=== PATIENT | female | born 1945 | race Caucasian/White ===

== ENCOUNTER 2022-06-04 17:03 | Inpatient (IN) | payer MEDICARE, SELFPAY ==
--- OUTSIDE RECORDS SUMMARY | 2022-06-04 17:08 | XMS_ITS | Continuity of Care Document ---
[facility] Address [address] [place] [address]- Care Team Providers Care Convenience Store Clerk Name Role Phone Davie SWEET, Roscoe Ballard Primary Care Physician [id number] Date(s): 11/13/21 - 12/13/21 [facility] [address] [place] [address]- Attending Physician: Cassandra Mary Admitting Physician: AdmtrCassandra Referring Physician: Admtr, Ar8 Allergies, Adverse Reactions, Alerts Substance Reaction Severity Status predniSONE Active cortisone Hives Active Bee Stings Active penicillins Active Bactrim Rash Active Benadryl Active Immunizations Given and Recorded Vaccine Date Status Refusal Reason SARS-CoV-2 (COVID-19) mRNA-1273 vaccine 03/21/21 R ecorded SARS-CoV-2 (COVID-19) mRNA BNT-162b2 vac 04/29/20 Given SARS-CoV-2 (COVID-19) mRNA BNT-162b2 vac 04/08/20 Given tetanus/diphtheria/pertussis, acel(Tdap) 02/01/20 Given Medications amLODIPine 5 mg oral tablet 5 mg, 1, tablet, By Mouth, Daily, # 30 tablet, Refills 0, Tot. Refills 0, Maintenance, 11/07/21 11:44:00 EDT, Route to Pharmacy Electronically, [facility][id number], Partial fill upon patient request if the prescription is for a schedule II opio... Start Date: 11/07/21 Status: Ordered aspirin 81 mg oral delayed release tablet 81 mg, By Mouth, Daily, # 30 tablet, Refills 0, Tot. Refills 0, Maintenance, 11/07/21 11:42:00 EDT,Route to Pharmacy Electronically, [facility] #[id number], Partial fill upon patient request if the prescription is for a schedule II opioid drug.,... Start Date: 11/07/21 Status: Ordered atorvastatin 40 mg oral tablet 1 tablet = 40 mg, By Mouth, Daily, # 30 tablet, 0 Refills, Maintenance, 11/07/21 11:42:00 EDT, Tablet, [facility] #[id number], Partial fill upon patient request if the prescription is for a schedule II opioid drug., 175, nickie, 11/07/21 8:17:00 EDT,... Start Date: 11/07/21 Status: Ordered cholecalciferol 10,000 intl units oral capsule 1 capsule = 250 mcg, By Mouth, Daily, # 30 capsule, 0 Refills, Maintenance, 11/07/21 11:44:00 EDT, Capsule, [facility] #[id number], Partial fill upon patient request if the prescription is for a schedule II opioid drug., 175, cm, 11/07/21 8:17:00... Start Date: 11/07/21 Status: Ordered divalproex sodium 500 mg oral enteric coated tablet = 500 mg, By Mouth, 2 times a day, # 60 tablet, 0 Refills, Maintenance, 11/07/21 11:45:00 EDT, Tablet, [facility] #[id number], Partial fill upon patient request if the prescription is for a schedule II opioid drug., 175, cm, 11/07/21 8:17:00 EDT,... Start Date: 11/07/21 Status: Ordered Flonase 50 mcg/inh nasal spray 1 sprays = 50 mcg, Nares, Both, 2 times a day, # 9.9 mL, 0 Refills, Maintenance, 11/07/21 11:43:00 EDT, Nasal [place], [facility] #[id number], Partial fill upon patient request if the prescription is for a schedule II opioid drug., 1 sprays Nares, B... Start Date: 11/07/21 Status: Ordered metoprolol 25 mg oral tablet 12.5 mg, 0.5, tablet, By Mouth, 2 times a day, # 30 tablet, Refills 0, Tot. Refills 0, Maintenance,11/07/21 11:43:00 EDT, Route to Pharmacy Electronically, [facility] #[id number], Partial fill upon patient request if the prescription is for a nic... Start Date: 11/07/21 Status: Ordered multivitamin with minerals Antioxidant Multiple Vitamins and Minerals oral capsule See Instructions, By Mouth Daily, # 30 tablet, 0 Refills, Maintenance, 11/07/21 11:45:00 EDT, Capsule, [facility] #[id number], Partial fill upon patient request if the prescription is for a schedule II opioid drug., By Mouth Daily, 175, cm, ... Start Date: 11/07/21 Status: Ordered omeprazole 20 mg oral enteric coated capsule 1 capsule = 20 mg, By Mouth, Daily, # 30 capsule, 0 Refills, Maintenance, 11/07/21 11:45:00 EDT, ECCapsule, [facility] #[id number], Partial fill upon patient request if the prescription is for aschedule II opioid drug., 175, cm, 11/07/21 8:17:00... Start Date: 11/07/21 Status: Ordered RisperDAL Consta 12.5 mg/2 weeks intramuscular injection, extended release See Instructions, last and first dose o 11/03. every 2 weeks IM, # 1 each, 0 Refills, Maintenance, 11/07/21 11:46:00 EDT, [facility] #[id number], Partial fill upon patient request if the prescription is for a schedule II opioid drug., last and f... Start Date: 11/07/21 Status: Ordered risperiDONE 0.25 mg oral tablet 0.5 mg, 2, tablet, By Mouth, Daily at bedtime, # 60 tablet, Refills 0, Tot. Refills 0, Maintenance,11/07/21 11:46:00 EDT, Route to Pharmacy Electronically, [facility] #[id number], Partial fill upon patient request if the prescription is for a nic... Start Date: 11/07/21 Status: Ordered risperiDONE 0.25 mg oral tablet 0.5 mg, 2, tablet, By Mouth, 2 times a day, PRN, # 30 tablet, Refills 0, Tot. Refills 0, Maintenance, Agitation, 11/07/21 11:47:00 EDT, Route to Pharmacy Electronically, [facility] #[id number], Partial fill upon patient request if the prescription... Start Date: 11/07/21 Status: Ordered traZODone 50 mg oral tablet 25 mg, 0.5, tablet, By Mouth, Daily at bedtime, PRN, # 30 capsule, Refills 0, Tot. Refills 0, Maintenance, Insomnia, 11/07/21 11:47:00 EDT, Route to Pharmacy Electronically, [facility] #[id number], Partial fill upon patient request if the prescrip... Start Date: 11/07/21 Status: Ordered Problem List Condition Confirmation Course Effective Dates Status H ealth Status Informant Arthritis Confirmed Active Bipolar disorder Confirmed Active Stroke Confirmed Active Thalamic hemorrhage with stroke Confirmed Active CAD (coronary artery disease) Confirmed Active Diverticulitis Confirmed Active Dysphagia Confirmed Active Chronic GERD Confirmed Active Hiatal hernia with GERD Confirmed Active History of stroke Confirmed Active Hyperlipidemia Confirmed Active HTN (hypertension) Confirmed Active Hypertensive emergency Confirmed Active Psychiatric problem Confirmed Active Osteopenia Confirmed Active Colon polyp Confirmed Active Prolapsed uterus Confirmed Active Vertigo Confirmed Active Social History Social History Type Response Smoking Status Former smoker, quit more than 30 days ago entered on: 09/29/21 Sex Patient Care team information Personnel Name: Roscoe Broderick MD Address: Address: [address] [place] [address] Adult [facility] Pediatric Medicine [address]
--- OUTSIDE RECORDS SUMMARY | 2022-06-04 17:08 | XMS_ITS | Continuity of Care Document ---
Author Name Unknown Organization [facility] Address [address], [address] [place] [address]- Care Team Providers Care Furniture Finisher Helper Name Role Phone Davie SWEET, Roscoe Ballard Primary Care Physician [phone] Encounter [facility] Date(s): 03/10/22 - 04/09/22 [facility] [address] [place] [address]- Allergies, Adverse Reactions, Alerts Substance Reaction Severity Status predniSONE Active cortisone Hives Active Bee Stings Active penicillins Active Bactrim Rash Active Immunizations Given and Recorded Vaccine Date Status Refusal Reason SARS-CoV-2 (COVID-19) mRNA-1273 vaccine 03/21/21 R ecorded SARS-CoV-2 (COVID-19) mRNA BNT-162b2 vac 04/29/20 Given SARS-CoV-2 (COVID-19) mRNA BNT-162b2 vac 04/08/20 Given tetanus/diphtheria/pertussis, acel(Tdap) 02/01/20 Given Medications acetaminophen 325 mg oral capsule 2 capsule = 650 mg, By Mouth, Every 4 hours, PRN Pain , Moderate, # 90 capsule, 0 Refills, Maintenance, 03/12/22 15:29:00 EST, Capsule, [facility] #[id number], Partial fill upon patient request if the prescription is for a schedule II opioid drug.... Start Date: 03/12/22 Status: Ordered aspirin 81 mg oral delayed release tablet 81 mg, By Mouth, Daily, # 30 tablet, Refills 0, Tot. Refills 0, Maintenance, 11/07/21 11:42:00 EDT,Route to Pharmacy Electronically, [facility] #[id number], Partial fill upon patient request if the prescription is for a schedule II opioid drug.,... Start Date: 11/07/21 Status: Ordered atorvastatin 40 mg oral tablet 1 tablet = 40 mg, By Mouth, Daily, # 30 tablet, 0 Refills, Maintenance, 11/07/21 11:42:00 EDT, Tablet, [facility][id number], Partial fill upon patient request if the prescription is for a schedule II opioid drug., 175, cm, 11/07/21 8:17:00 EDT,... Start Date: 11/07/21 Status: Ordered cholecalciferol 10,000 intl units oral capsule 1 capsule = 250 mcg, By Mouth, Daily, # 30 capsule, 0 Refills, Maintenance, 11/07/21 11:44:00 EDT, Capsule, [facility] #[id number], Partial fill upon patient request if the prescription is for a schedule II opioid drug., 175, cm, 11/07/21 8:17:00... Start Date: 11/07/21 Status: Ordered Flonase 50 mcg/inh nasal spray 1 sprays = 50 mcg, Nares, Both, 2 times a day, # 9.9 mL, 0 Refills, Maintenance, 11/07/21 11:43:00 EDT, Nasal [place], [facility] #[id number], Partial fill upon patient request if the prescription is for a schedule II opioid drug., 1 sprays Nares, B... Start Date: 11/07/21 Status: Ordered ibuprofen 200 mg oral tablet 600 mg, 3, tablet, By Mouth, Every 6 hours, PRN, # 60 tablet, Refills 0, Tot. Refills 0, Maintenance, for pain, 03/12/22 15:30:00 EST, Route to Pharmacy Electronically, [facility][id number], Partial fill upon patient request if the prescription... Start Date: 03/12/22 Status: Ordered multivitamin with minerals Antioxidant Multiple Vitamins and Minerals oral capsule See Instructions, By Mouth Daily, # 30 tablet, 0 Refills, Maintenance, 11/07/21 11:45:00 EDT, Capsule, [facility] #[id number], Partial fill upon patient request if the prescription is for a schedule II opioid drug., By Mouth Daily, 175 cm, ... Start Date: 11/07/21 Status: Ordered omeprazole 20 mg oral enteric coated capsule 1 capsule = 20 mg, By Mouth, Daily, # 30 capsule, 0 Refills, Maintenance, 11/07/21 11:45:00 EDT, ECCapsule, [facility] #[id number], Partial fill upon patient request if the prescription is for aschedule II opioid drug., 175, cm, 11/07/21 8:17:00... Start Date: 11/07/21 Status: Ordered oxyCODONE 5 mg oral tablet 5 mg, 1, tablet, By Mouth, Every 6 hours, PRN, # 10 tablet, Refills 0, Tot. Refills 0, Maintenance,as needed for pain, 03/12/22 15:29:00 EST, Route to Pharmacy Electronically, [facility] #[id number], Partial fill upon patient request if the presc... Start Date: 03/12/22 Status: Ordered risperiDONE 0.25 mg oral tablet 0.5 mg, 2, tablet, By Mouth, Daily at bedtime, # 60 tablet, Refills 0, Tot. Refills 0, Maintenance,11/07/21 11:46:00 EDT, Route to Pharmacy Electronically, [facility] #[id number], Partial fill upon patient request if the prescription is for a nic... Start Date: 11/07/21 Status: Ordered risperiDONE 0.25 mg oral tablet 0.5 mg, 2, tablet, By Mouth, 2 times a day, PRN, # 30 tablet, Refills 0, Tot. Refills 0, Maintenance, Agitation, 11/07/21 11:47:00 EDT, Route to Pharmacy Electronically, [facility] #[id number], Partial fill upon patient request if the prescription... Start Date: 11/07/21 Status: Ordered Problem List [...] 30 days ago entered on: 09/29/21 Sex Implantable Device List Procedure Provider Procedure Date Device Type Site Robotic XI Sacrocolpopexy Laparoscopic a Mee Gabriel MD 03/12/22 Unknown Pelvis Device Identifier Serial Number Lot or Batch Number Manufacturing Date Expiration Date Distinct Identification Code MRI Safety Implantable Status Assigning Authority Unknown Unknown Unknown Unknown 01/10/24 Unknown Unknown Active Un known Patient Care team information Care Team Personnel Name: Evette Luis RN Position: [facility] RN Member Role: Primary Care Nurse Name: Reggie Ortiz MD Position: [facility] THERAPY ASSISTANT MD Member Role: Lifetime Consulting Physician Address: Address: [address] [place] [address] [place] [address]- Name: Jovita Guzman Position: [facility] RN Member Role: Primary Care Nurse Name: Delia Vázquez RN Position: [facility] RN Member Role: Primary Care Nurse Name: Kim Rosen RN Position: [facility] RN Member Role: Primary Care Nurse Name: Andria Zacarias Position: [facility] Outreach Member Role: Lifetime Consulting Physician Name: Afshan Hayes RN Position: [facility] RN Member Role: Primary Care Nurse Name: Roscoe Broderick MD Position: [facility] Primary Care Physician Member Role: PCP Address: Address: [address] [place] [address] [facility] [place] [address]- [place] Name: Lary Briones RN Position: [facility] RN Member Role: Primary Care Nurse Care Team Related Persons Name: DARLING VANESSA Address: home [address] [place] [id number] Name: LLOYD VANESSA Address: home [place]
--- OUTSIDE RECORDS SUMMARY | 2022-06-04 17:08 | XMS_ITS | Continuity of Care Document ---
Author Name Unknown Organization [facility] ter Address [address] [place] [id number] Care Team Providers Care Travel Manager Name Role Phone Reggie oMnk MD Primary Care Physician Encounter [facility] Date(s): 03/12/22 - 03/12/[address] [address]- Discharge Disposition: A-D/C Home Attending Physician: Mee Gabriel MD Admitting Physician: Mee Gabriel MD Referring Physician: Mee Gabriel MD Allergies, Adverse Reactions, Alerts Substance Reaction Severity Status predniSONE Active cortisone Hives Active penicillins Active Bactrim Rash Active Bee Stings Active Immunizations Given and Recorded Vaccine Date [...] 0 Refills, Maintenance, 03/12/22 15:29:00 EST, Capsule, [facility] #[id number], Partial fill upon patient request if the prescription is for a schedule II opioid drug.... Start Date: 03/12/22 Status: Ordered aspirin 81 mg oral delayed release tablet 81 mg, By Mouth, Daily, # 30 tablet, Refills 0, Tot. Refills 0, Maintenance, 11/07/21 11:42:00 EDT,Route to Pharmacy Electronically, [facility] #[id number], Partial fill upon patient request if the prescription is for a schedule II opioid drug.,... Start Date: 11/07/21 Status: Ordered atorvastatin 40 mg oral tablet 1 tablet = 40 mg, By Mouth, Daily, # 30 tablet, 0 Refills, Maintenance, 11/07/21 11:42:00 EDT, Tablet, [facility] #[id number], Partial fill upon patient request if the prescription is for a schedule II opioid drug., 175, cm, 11/07/21 8:17:00 EDT,... Start Date: 11/07/21 Status: Ordered cholecalciferol 10,000 intl units oral capsule 1 capsule = 250 mcg, By Mouth, Daily, # 30 capsule, 0 Refills, Maintenance, 11/07/21 11:44:00 EDT, Capsule, [facility] #[id number], Partial fill upon patient request if the prescription is for a schedule II opioid drug., 175, cm, 11/07/21 8:17:00... Start Date: 11/07/21 Status: Ordered Flonase 50 mcg/inh nasal spray 1 sprays = 50 mcg, Nares, Both, 2 times a day, # 9.9 mL, 0 Refills, Maintenance, 11/07/21 11:43:00 EDT, Nasal [place], [facility] #[id number], Partial fill upon patient request if the prescription is for a schedule II opioid drug., 1 sprays Nares, B... Start Date: 11/07/21 Status: Ordered ibuprofen 200 mg oral tablet 600 mg, 3, tablet, By Mouth, Every 6 hours, PRN, # 60 tablet, Refills 0, Tot. Refills 0, Maintenance, for pain, 03/12/22 15:30:00 EST, Route to Pharmacy Electronically, [facility] #[id number], Partial fill upon patient request if the prescription... Start Date: 03/12/22 Status: Ordered multivitamin with minerals Antioxidant Multiple Vitamins and Minerals oral capsule See Instructions, By Mouth Daily, # 30 tablet, 0 Refills, Maintenance, 11/07/21 11:45:00 EDT, Capsule, [facility] #[id number], Partial fill upon patient request if the prescription is for a schedule II opioid drug., By Mouth Daily, 175, cm, ... Start Date: 11/07/21 Status: Ordered omeprazole 20 mg oral enteric coated capsule 1 capsule = 20 mg, By Mouth, Daily, # 30 capsule, 0 Refills, Maintenance, 11/07/21 11:45:00 EDT, ECCapsule, [facility] #[id number], Partial fill upon patient request if the prescription is for aschedule II opioid drug., 175, cm, 11/07/21 8:17:00... Start Date: 11/07/21 Status: Ordered oxyCODONE 5 mg oral tablet 5 mg, 1, tablet, By Mouth, Every 6 hours, PRN, # 10 tablet, Refills 0, Tot. Refills 0, Maintenance,as needed for pain, 03/12/22 15:29:00 EST, Route to Pharmacy Electronically, [facility] #[id number], Partial fill upon patient request if the presc... Start Date: 03/12/22 Status: Ordered Oxycodone 5mg Oral Tablet (PACU ONLY) 5 mg, Tablet, By Mouth, Once, in PACU ONLY, PRN for Pain , Moderate, Routine, 03/12/22 14:30:00 EST Start Date: 03/12/22 Stop Date: 03/12/22 Status: Completed risperiDONE 0.25 mg oral tablet 0.5 mg, 2, tablet, By Mouth, Daily at bedtime, # 60 tablet, Refills 0, Tot. Refills 0, Maintenance,11/07/21 11:46:00 EDT, Route to Pharmacy Electronically, [facility] #[id number], Partial fill upon patient request if the prescription is for a nic... Start Date: 11/07/21 Status: Ordered risperiDONE 0.25 mg oral tablet 0.5 mg, 2, tablet, By Mouth, 2 times a day, PRN, # 30 tablet, Refills 0, Tot. Refills 0, Maintenance, Agitation, 11/07/21 11:47:00 EDT, Route to Pharmacy Electronically, [facility] #[id number], Partial fill upon patient request if the [...] Prolapsed uterus Confirmed Active Vertigo Confirmed Active Vital Signs Most recent to oldest [Reference Range]: 1 2 3 Height 162.5 cm (03/12/22 12:18 PM) 162.5 cm (03/06/22 2:52 PM) Weight 70.6 kg (03/12/22 12:18 PM) 69.5 kg (03/06/22 2:52 PM) Oxygen Saturation [94-100 %] 94 % (03/12/22 5:45 PM) 96 % (03/12/22 5:00 PM) 92 % *L* (03/12/22 4:45 PM) Pulse Rate [55-90 bpm] 78 bpm (03/12/22 5:45 PM) 78 bpm (03/12/22 12:18 PM) Body Mass Index [18.5-24.99 kg/m2] 26.74 kg/m2 *H* (03/12/22 12:18 PM) 26.32 kg/m2 *H* (03/06/22 2:52 PM) Blood Pressure [90-138/55-84 mm Hg] 148/76mm Hg *H* (03/12/22 5:45 PM) 145/73mm Hg *H* (03/12/22 5:00 PM) 147/72mm Hg *H* (03/12/22 4:45 PM) Respiratory Rate [16-30 br/min] 16 br/min (03/12/22 5:50 PM) 20 br/min (03/12/22 5:00 PM) 24 br/min (03/12/22 4:45 PM) Temperature [96.8-100.4 DegF] 97.6 DegF (03/12/22 5:45 PM) 97.2 DegF (03/12/22 4:45 PM) 97.3 DegF (03/12/22 3:30 PM) Liters per Minute 0 L/min (03/12/22 4:45 PM) 2 L/min (03/12/22 4:15 PM) 6 L/min (03/12/22 3:30 PM) Mode of Delivery (Oxygen) Room air (03/12/22 5:45 PM) Room air (03/12/22 4:45 PM) Room air (03/12/22 4:30 PM) Blood pressure sites Arm, right (03/12/22 5:45 PM) Arm, left (03/12/22 5:00 PM) Arm, left (03/12/22 3:30 PM) Temperature Route Temporal (03/12/22 5:45 PM) Temporal (03/12/22 3:30 PM) Temporal (03/12/22 12:18 PM) Dry Weight 69.5 kg (03/06/22 2:52 PM) Weight Obtained Via Standing scale (03/12/22 12:18 PM) Patient/family stated (03/06/22 2:52 PM) Dry Weight Obtained Via Patient/family s tated (03/06/22 2:52 PM) Social History Social History Type Response Smoking [...] Unknown 01/10/24 Unknown Unknown Active Un known History and physical note * Event Display: History and Physical Hospital Authored Date: Note * Jodi Aranda RN: PERFORM Event Display: Discharge/Transfer Note Hospital Authored Date: [id number] Nursing Discharge Note Entered On: 03/12/2022 19:11 EST Performed On: 03/12/2022 19:11 EST by Jodi Aranda RN Nursing Discharge Note 2 Discharge Time : 03/12/2022 19:01 EST Discharge Level of Care at Discharge : Home/Fdc/Foster Care Patient Left Unit Via : Wheelchair Patient Accompanied Off Unit with : Significant other DC Instructions Provided & Signed by Pt : Yes Patient Understands D/C Instructions : Yes Patient Instructions Discharge Signed : Yes Did Pt have Specialty Bed or Wound Vac : No Jodi Aranda RN - 03/12/2022 19:11 EST * Jodi Aranda RN: PERFORM, MODIFY Event Display: Patient Education/Instruction Authored Date: [id number] Inpatient Adult Discharge Instructions [address] [address] Name: JOVITA VANESSA : 1945 Visit: 03/12/2022 10:53:00 Current Date: 03/12/2022 17:44 Account: [id number] Inpatient Adult Discharge Instructions We would like to thank you for allowing us to assist you with your healthcare needs. The following includes patient education materials and information regarding your injury/illness. Our entire staffstrives to provide an excellent experience for our patients and their families. PLEASE ENSURE YOU FOLLOW-UP PER THE INSTRUCTIONS BELOW! ?? YOUR OPINION IS IMPORTANT TO US! Please complete the survey you may receive by mail or email. Your feedback will be used to make improvements to the healthcare experiences of our patients and their families. Surveys are administered by [employer] ?? If further treatment with your primary care physician or another doctor is recommended, it is important for you to keep the appointment. Call your primary care physician or return to the Emergency Department immediately if your condition worsens, fails to improve, or new symptoms develop. If you need to find a doctor, you can call [facility] [employer] for a referral at [phone] or toll free at [phone]) or log in to [email or web address].. ?? You can view and manage your care through the patient portal or by using a health care leobardo of your choosing. [facility] is a website that allows you to securely view your medical information including your hospital discharge summary, office visit summaries, medications and follow-up visits. You can also request appointments, renew medications, and request access to your medical information using a health care leobardo of your choosing, or just ask a question. You can enroll at [email or web address] or register during your next office visit. You have been discharged from [facility], Patient Care Unit: [facility]. If you have any questions regarding these instructions after you leave, please call us and we will be happy to assist you. [facility] Your Care Team Attending Physician Mee Gabriel MD Discharging Providers Janeen Jones MD Reason for Admission PELVIC ORGAN PROLAPSE Tests Performed Below is a partial list of the tests performed during your hospitalization. You may have had other tests and procedures not included in this list. Please discuss all test results with your provider. Primary Care Provider Reggie Monk MD Advance Directive Health Care Proxy on File Yes - Health Care Proxy No qualifying data available. Discharge Vitals Temperature: 97.2 DegF Height: 162.5 cm Pulse Rate: 78 bpm Weight: 70.6 kg Respiratory Rate: 20 br/min Body Mass Index:??26.74 kg/m2??High Systolic Blood Pressure:??145 mm Hg??High Body surface area: 1.79 Diastolic Blood Pressure: 73 mm Hg ?? Oxygen Saturation: 96 % ?? Studies Pending All tests and labs ordered during this hospital stay have been completed unless listed below. Please discuss all pending results with your provider listed above in these instructions. ?? No incomplete studies found What to do next Instructions From Your Doctor Discharge Orders Instructions from your Care Team You may shower in??48 hours. Remove Band-Aids at this time but do not remove steri-strips (let them fall off/peel away on their own). Do not drive or drink alcohol while taking any narcotic pain medications. No strenuous/straining activities such as heavy lifting, twisting, bending, etc. You may resume a regular diet. Call Dr. Caban's office to schedule a follow-up appointment or if you experience any issues such as: excessive swelling, bleeding, saturating 1 pad in 1 hour, redness of incision sites, fever over 100, chills,??vomiting episodes. Do not soak in water (tub baths/ hot tubs). You Need to Schedule the Following Appointments Follow Up with??Mee Gabriel MD When?? Where: ?? Discharge Medications JOVITA VANESSA :1945 Visit Date:03/12/2022 Medications: Please continue your medications until treatment is completed or stopped by your provider. Medications not listed below should be discontinued. Discuss any questions related to medications with your provider. What How Much When Instructions Next Dose New Acetaminophen (acetaminophen 325 mg oral capsule) 2 capsule Oral Every 4 hours as needed for Pain , Moderate Pickup at [facility] #[id number] 10pm Last given at 6pm New Ibuprofen (ibuprofen 200 mg oral tablet) 3 tab(s) Oral Every 6 hours as needed for for pain Pickup at [facility] #[id number] As needed (not given) New Oxycodone (oxyCODONE 5 mg oral tablet) 1 tab(s) Oral Every 6 hours as needed for as needed for pain Pickup at [facility] #[id number] 12 midnight Last given at 6pm Unchanged Aspirin (aspirin 81 mg oral delayed release tablet) 81 Milligram Oral Daily Unchanged Atorvastatin (atorvastatin 40 mg oral tablet) 1 tab(s) Oral Daily Unchanged Cholecalciferol (cholecalciferol 10,000 intl units oral capsule) 1 capsule Oral Daily Unchanged Fluticasone Nasal (Flonase 50 mcg/ inh nasal spray) 1 spray(s) Nares, Both Twice a day Unchanged Multivitamin With Minerals (multivitamin with minerals Antioxidant Multiple Vitamins and Minerals oral capsule) See instructions By Mouth Daily ?? Unchanged Omeprazole (omeprazole 20 mg oral enteric coated capsule) 1 capsule Oral Daily Unchanged Risperidone (risperiDONE 0.25 mg oral tablet) 2 tab(s) Oral Twice a day as needed for Agitation Unchanged Risperidone (risperiDONE 0.25 mg oral tablet) 2 tab(s) Oral Daily at Bedtime Pharmacy Information [facility] #[id number]: [address], [place] [phone] Test Results Below is a partial list of the most recent Laboratory test results done prior to this discharge. You may have had other tests and procedures not included in this list. Please discuss all test resultswith your provider. Allergies (NKA means No Known Allergies) Bactrim??(Rash) Bee Stings cortisone??(Hives) penicillins predniSONE Problems Active Problems??(18) Arthritis?? Bipolar disorder?? CAD (coronary artery disease)?? Chronic GERD?? Colon polyp?? Diverticulitis?? Dysphagia?? Hiatal hernia with GERD?? History of stroke?? HTN (hypertension)?? Hyperlipidemia?? Hypertensive emergency?? Osteopenia?? Prolapsed uterus?? Psychiatric problem?? Stroke?? Thalamic hemorrhage with stroke?? Vertigo?? Education Materials Below is the list of Educational Leaflet Providered with your Discharge Instructions. Surgery Medical Daystay Surgical Overnight Discharge Instructions?? Understanding Robotic-Assisted Sacrocolpopexy (RASC)?? Having Robotic-Assisted Sacrocolpopexy (RASC)?? Valuables and Belongings I fully understand and agree that [facility] accepts no responsibility for all my personal property including clothing, toilet articles, radios, jewelry, dentures, hearing aids, rings, money, or any other property that is in my possession or is brought to me after admission. I understand certain valuables may be placed in a hospital safe for a short period of time. I understand that the hospital is not liable for loss or damage due to accident, fire, or other natural occurrence while said property is in the safe. I accept full responsibility for any personal property that I keep with me, and will not hold the hospital responsible in case of loss or disappearance. I acknowledge that i have been encouraged to send valuables and belongings home. ?? Review of Valuable and Belonging List: With patient Disposition of Belongings: Other: PACU Date for Pt to Sign Valuables/Belongings: 03/12/22 12:18:00 ?? Valuables & Belongings ?? Clothes Electronic devices Jewelry Monetary Items Personal devices Miscellaneous Medications (Valuables) Valuables at Bedside Jacket, Pants, Shirt, Shoes, Undergarments ? Glasses ? Valuables Sent Home ? Valuables Sent to Security ? Other Discharge Information ? Pulmonary Rehab Status?? Pulmonary Rehab Discharge Status?? Respiratory Rate: 20 br/min ? Common Emergency Awareness Tips IS IT A STROKE? Act FAST and Check for these signs: FACE Does the face look uneven? ARM Does one arm drift down? SPEECH Does their speech sound strange? TIME Call at any sign of stroke ?? Heart Attack Signs Chest discomfort: Most heart attacks involve discomfort in the center of the chest and lasts more than a few minutes, or goes away and comes back. It can feel like uncomfortable pressure, squeezing, fullness or pain. Discomfort in upper body: Symptoms can include pain or discomfort in one or both arms, back, neck, jaw or stomach. Shortness of breath: With or without discomfort. Other signs: Breaking out in a cold sweat, nausea, or lightheaded. Remember, MINUTES DO MATTER. If you experience any of these heart attack warning signs, call to get immediate medical attention! ?? Smoking can increase your chances of developing chronic health problems and can cause harmful effects to other family members in your house. If you smoke, you are strongly encouraged to quit. Please call [facility] [employer] at [phone] or [phone]) or log in to [email or web address] for referrals to smoking cessation programs. ?? The National Suicide Prevention Hotline is available 14/09 if you or someone you know needs to find a reason to keep living. By calling 6-258-717Aquacue (1324) you'll be connected to a skilled, trained counselor at a crisis center in your area. INPATIENT DISCHARGE INSTRUCTIONS SIGNATURE PAGE RASHEEDAOLGA LIDIAJOVITA Location:[facility] Registration Date and Time:03/12/2022 10:53 EST Primary Care Physician: Lacho SWEET, Reggie Torres, I JOVITA VANESSA, have received the above patient education materials/instructions and have verbalized understanding. If ambulance or transport services are being used I further acknowledge being given a choice of service. ?? If you need to contact me, please call me at this number: . Patient/Speech Instructor Name: Patient/Speech Instructor Signature: Relationship to Patient: Witness Name/Signature: Date: * Jodi Aranda RN: PERFORM Event Display: Patient Education Leaflets Authored Date: [id number] Surgery Medical Daystay Surgical Overnight Discharge Instructions ?? 295 Medical Daystay/Surgical Overnight Discharge Instructions ? Since your coordination and judgment may be altered by medication and/or anesthesia, a responsible adult must drive you home from the hospital. ? If you have received medication for pain or sedation while under our care, you should not drive, operate machinery, drink alcohol, or sign any legal documents for 24 hours.?? You should have someone with you at home tonight. ? Remain at home the day of discharge.?? You may be up and about unless otherwise instructed by your physician. ? You may resume your daily prescription medication schedule.?? Any depressant medication should be avoided for 24 hours unless otherwise instructed by your surgeon or anesthesiologist. ? Call your physician for a follow-up appointment.? If you experience unusual or severe pain not relied by your pain medication, excessive bleedingor drainage, persistent nausea and vomiting, excessive swelling or redness, foul odor from incisionsite or fever over 100.6F, you need to call your physician. ? A follow-up phone call by a nurse will be made the day after your procedure.?? If you have stayed with us over night, you will not be receiving a follow-up phone call. ? Nausea and vomiting are a common side effect of prescription pain medication.?? We recommend that pills are not taken on an empty stomach.?? While taking any prescription pain medication you should not drive or drink alcohol. ? * Jodi Aranda RN: PERFORM Event Display: Patient Education Leaflets Authored Date: [id number] Understanding Robotic-Assisted Sacrocolpopexy (RASC) ?? [address] Understanding Robotic-Assisted Sacrocolpopexy (RASC) Robotic-assisted sacrocolpopexy is a type of surgery. It???s done to repair pelvic organ prolapse. The surgery is done with special tools and a robotic controller. What is pelvic organ prolapse? Your pelvis is made up of the bones in the lower part of your belly (abdomen). The uterus, bladder,and lower part of your intestines are just above the pelvic bones. Strong tissues help hold these organs in place. If the tissues weaken, one or more of these organs may drop down and press against or bulge into the vagina. This is called pelvic organ prolapse. ?? Why robotic-assisted sacrocolpopexy is done You may need this surgery to relieve symptoms of pelvic organ prolapse, such as: ??? Fullness or pressure in your vagina ??? A bulge of tissue from your vagina ??? Ongoing vaginal discharge or bleeding ??? Trouble urinating ??? Leaking urine with coughing, sneezing, or laughing (stress incontinence) ??? Sudden urges to urinate ??? Trouble having bowel movements ??? Painful sex Robotic-assisted sacrocolpopexy has some benefits over other types of surgery, such as: ??? Fewer complications ??? A shorter hospital stay ??? A quicker recovery But it may: ??? Take longer than other surgeries ??? Not be available where you live ??? Cost more ?? How robotic-assisted sacrocolpopexy is done The surgery may be done by a gynecologic surgeon. This is a healthcare provider who specializes in female health. Or it may be done by a surgeon who specializes in the urinary system. The surgery canbe done in several ways. The surgeon will make a few small cuts (incisions) in the abdomen. The surgeon will pass tools through the small incisions. These include a tiny camera with a light and [employer] robotic tools.??If you are going to have a hysterectomy, the surgeon will remove your uterus. Thesurgeon will lift up the prolapsed part of your vagina. They will sew a tissue graft or synthetic mesh to the vagina. This helps keep the vagina and other organs in place. The graft or mesh is then stitched (sutured) to strong tissue in the pelvic area. The surgeon may also repair other prolapsed pelvic organs. These may include your rectum or bladder. The FDA has issued a warning about the use of surgical mesh in this type of surgery. Ask your surgeon if they will use mesh and what the risks of using it are. ?? Risks of robotic-assisted sacrocolpopexy Every surgery has risks. The risks of this surgery include: ??? Infection ??? Bleeding ??? Blood clots that can travel to the lungs (pulmonary embolism) ??? Injury to nearby organs such as the intestines, bladder, or ureter ??? Problems with cuts (incisions) healing ??? Painful sex ??? Problems with the mesh used to hold organs in place ??? Reaction to medic vipul used during surgery (anesthesia) ??? Organs or tissue not staying in place and a return of symptoms ??? Need for more surgery Your risks may vary depending on your age and overall health. They also depend on the location and severity of the prolapse. Talk with your healthcare provider about which risks apply most to you. ?? Last Reviewed Date: 2022 ?? [employer] All rights reserved. This information is not intended as a substitute for professional medical care. Always follow your healthcare professional's instructions. ?? * Jodi Aranda RN: PERFORM Event Display: Patient Education Leaflets Authored Date: [id number] Having Robotic-Assisted Sacrocolpopexy (RASC) ?? [address] Having Robotic-Assisted Sacrocolpopexy (RASC) Robotic-assisted sacrocolpopexy is a type of surgery to repair pelvic organ prolapse. The surgery is done with special tools and a robotic controller. What to tell your healthcare provider Tell your healthcare provider about all the medicines you take. This includes qhts-mct-yjjyodl medicines such as ibuprofen. It also includes vitamins, herbs, and other supplements. And tell your healthcare provider if you: ??? Have had any recent changes in your health, such as an infection or fever ??? Are sensitive or allergic to any medicines, latex, tape, or anesthesia (local and general) ???Are or think you may be ??? Plan to get after having this surgery ?? Tests before your surgery Before your surgery, a healthcare provider will ask you questions about your health. They will alsoexamine you. This includes a pelvic exam. Your heart and lungs will also be checked. You may need tests such as: ??? Electrocardiogram (ECG) to check your heart rhythm ??? Blood tests to check your overall health ??? Urine test to check for infection ??? Bladder tests to check how well you empty your bladder ?? Getting ready for your surgery Talk with your healthcare provider about how to get ready for your surgery. You may need to stop taking some medicines before the procedure, such as blood thinners and aspirin. If you smoke, you may need to stop before your surgery. Smoking can delay healing. Talk with your healthcare provider if you need help to stop smoking. Also make sure to do the following: ??? Ask a family member or friend to take you home from the hospital. ??? Follow any directions youare given for not eating or drinking before surgery. ??? Follow all other instructions from your healthcare provider. You will be asked to sign a consent form that gives your permission to do the procedure. Read the form carefully. Ask questions if something is not clear. ?? On the day of your surgery Your healthcare provider will explain the details of your surgery. Your surgery may be done by a gynecologic surgeon. This is a provider who specializes in female health. Or your surgery may be done by a urologist. This is a surgeon who specializes in the urinary system. They will work with a team of specialized nurses. The surgery can be done in several ways. Ask your provider about the details of your surgery. The whole procedure may take a couple of hours. In general, you can expect the following:? You will have general anesthesia, a medicine that allows you to sleep through the surgery. You won???t feel any pain during the surgery. ??? A healthcare provider will watch yourvital signs, like your heart rate and blood pressure, during the surgery. ??? You may be given antibiotics during and after the surgery. This is to help prevent infection. ??? After cleaning your skin, the surgeon will make a few small cuts (incisions) in your abdomen. ??? A small tube may be used to send some gas into your abdomen. This helps the surgeon see the area better during surgery. ??? The surgeon will pass tools through the small incisions. These include a tiny camera with a light, and several robotic tools. The robotic tools allow your surgeon to make very small movements. ??? If you are going to have a hysterectomy, the surgeon will remove your uterus. ??? The surgeon will lift up the prolapsed part of your vagina. ??? The surgeon will sew a tissue graft or synthetic mesh under the pelvic organs. This helps keep them in place. The graft or mesh is stitched (sutured) to strong tissue in the pelvic area. Ask your surgeon if they plan to use mesh and what the risk are. ??? The surgeon may also repair other prolapsed pelvic organs. These may include your rectum or bladder. ??? When the surgery is done, the surgeon will remove the tools. The incisions will be closed and band aged. ?? After your surgery After the surgery, a healthcare provider will watch your vital signs. They will also check your incisions. You may be able to go home the same day. Or you may need to stay overnight. ?? Recovering at home Make sure you move around as much as possible after your surgery. This helps to prevent problems like blood clots. You may have some pain after the surgery. This includes pain in your shoulder from the gas used during surgery. Your healthcare provider will tell you what to take for pain. It's very important to not strain after this surgery. You may need to use stool softeners after surgery to prevent constipation. ?? Follow-up care Make sure you follow all of your healthcare provider???s instructions. Don???t miss any of your follow-up appointments. Your symptoms may go away fully after surgery. Talk with your healthcare provider if your symptoms don???t go away, or if they return. Tell your provider if you get afterhaving this surgery. ?? When to call your healthcare provider Call your healthcare provider right away if you have any of these: ??? Fever of 100.4??F (38??C) orhigher, or as directed by your healthcare provider ??? Pain that is getting worse ??? Redness or warmth near the incisions ??? Vaginal bleeding ??? Lots of fluid leaking from your incisions ??? Nausea and vomiting ??? Chest pain or shortness of breath starts suddenly ?? Last Reviewed Date: 2022 ?? 3691-2420 [employer]. All rights reserved. This information is not intended as a substitute for professional medical care. Always follow your healthcare professional's instructions. ?? Patient Care team information Care Team Personnel Name: Evette Luis RN Position: [facility] RN Member Role: Primary Care Nurse Name: Reggie Ortiz MD Position: [facility] POTTER OR CERAMIC ARTIST MD Member Role: Lifetime Consulting Physician Address: Address: [address] [place] [address] [facility] [address] Name: Jovita Guzman Position: [facility] RN Member Role: Primary Care Nurse Name: Delia Vázquez RN Position: [facility] RN Member Role: Primary Care Nurse Name: Kim Rosen RN Position: [facility] RN Member Role: Primary Care Nurse Name: Andria Zacarias Position: [facility] Outreach Member Role: Lifetime Consulting Physician Name: Afshan Hayes RN Position: [facility] RN Member Role: Primary Care Nurse Name: Lary Briones RN Position: S RN Member Role: Primary Care Nurse Name: Reggie Monk MD Position: [facility] Physician (General Medicine) Member Role: PCP Address: Address: [address] [place] [address] [place] [address]- Care Team Related Persons Name: DARLING VANESSA Address: home [address] [place] [id number] Name: LLOYD VANESSA Address: [place] [address]
--- OUTSIDE RECORDS SUMMARY | 2022-06-04 17:08 | XMS_ITS | Continuity of Care Document ---
Author Name Unknown Organization [facility] Address [address], [address] [place] [address]- Care Team Providers Care Rn Paralegal Name Role Phone Roscoe Broderick MD Primary Care Physician Encounter [facility] [place] [place] Date(s): 12/05/21 - [facility]04/[facility] [address] [place] [address]- Allergies, Adverse Reactions, Alerts Substance Reaction Severity Status predniSONE Active cortisone Hives Active penicillins Active Bactrim Rash Active Benadryl Active Bee Stings Active Immunizations Given and [...] 11/07/21 11:44:00 EDT, Route to Pharmacy Electronically, [facility] #[id number], Partial fill upon patient request if the prescription is for a schedule II opio... Start Date: 11/07/21 Status: Ordered aspirin 81 mg oral delayed release tablet 81 mg, By Mouth, Daily, # 30 tablet, Refills 0, Tot. Refills 0, Maintenance, 11/07/21 11:42:00 EDT,Route to Pharmacy Electronically, [facility] #[id number], Partial fill upon patient request if the prescription is for a schedule II opioid drug.,... Start Date: 11/07/21 Status: Ordered atorvastatin 40 mg oral tablet 1 tablet = 40 mg, By Mouth, Daily, # 30 tablet, 0 Refills, Maintenance, 11/07/21 11:42:00 EDT, Tablet, [facility][id number], Partial fill upon patient request if the prescription is for a schedule II opioid drug., nickie Salguero, 11/07/21 8:17:00 EDT,... Start Date: 11/07/21 Status: Ordered cholecalciferol 10,000 intl units oral capsule 1 capsule = 250 mcg, By Mouth, Daily, # 30 capsule, 0 Refills, Maintenance, 11/07/21 11:44:00 EDT, Capsule, [facility] #[id number], Partial fill upon patient request if the prescription is for a schedule II opioid drug., nickie Salguero, 11/07/21 8:17:00... Start Date: 11/07/21 Status: Ordered divalproex sodium 500 mg oral enteric coated tablet = 500 mg, By Mouth, 2 times a day, # 60 tablet, 0 Refills, Maintenance, 11/07/21 11:45:00 EDT, Tablet, [facility] #[id number], Partial fill upon patient request if the prescription is for a schedule II opioid drug., nickie Salguero, 11/07/21 8:17:00 EDT,... Start Date: 11/07/21 Status: Ordered Flonase 50 mcg/inh nasal spray 1 sprays = 50 mcg, Nares, Both, 2 times a day, # 9.9 mL, 0 Refills, Maintenance, 11/07/21 11:43:00 EDT, Nasal [place], [facility] #[id number], Partial fill upon patient request if the prescription is for a schedule II opioid drug., 1 sprays Nares, B... Start Date: 11/07/21 Status: Ordered metoprolol 25 mg oral tablet 12.5 mg, 0.5, tablet, By Mouth, 2 times a day, # 30 tablet, Refills 0, Tot. Refills 0, Maintenance,11/07/21 11:43:00 EDT, Route to Pharmacy Electronically, [facility] #[id number], Partial fill upon patient request if the prescription is for a nic... Start Date: 11/07/21 Status: Ordered multivitamin with minerals Antioxidant Multiple Vitamins and Minerals oral capsule See Instructions, By Mouth Daily, # 30 tablet, 0 Refills, Maintenance, 11/07/21 11:45:00 EDT, Capsule, [facility][id number], Partial fill upon patient request if the prescription is for a schedule II opioid drug., By Mouth Daily, 175, cm, ... Start Date: 11/07/21 Status: Ordered omeprazole 20 mg oral enteric coated capsule 1 capsule = 20 mg, By Mouth, Daily, # 30 capsule, 0 Refills, Maintenance, 11/07/21 11:45:00 EDT, ECCapsule, [facility][id number], Partial fill upon patient request if the prescription is for aschedule II opioid drug., 175, cm, 11/07/21 8:17:00... Start Date: 11/07/21 Status: Ordered RisperDAL Consta 12.5 mg/2 weeks intramuscular injection, extended release See Instructions, last and first dose o 11/03. every 2 weeks IM, # 1 each, 0 Refills, Maintenance, 11/07/21 11:46:00 EDT, [facility] #[id number], Partial fill upon patient request if the prescription is for a schedule II opioid drug., last and f... Start Date: 11/07/21 Status: Ordered risperiDONE 0.25 mg oral tablet 0.5 mg, 2, tablet, By Mouth, Daily at bedtime, # 60 tablet, Refills 0, Tot. Refills 0, Maintenance,11/07/21 11:46:00 EDT, Route to Pharmacy Electronically, [facility] #[id number], Partial fill upon patient request if the prescription is for a nic... Start Date: 11/07/21 Status: Ordered risperiDONE 0.25 mg oral tablet 0.5 mg, 2, tablet, By Mouth, 2 times a day, PRN, # 30 tablet, Refills 0, Tot. Refills 0, Maintenance, Agitation, 11/07/21 11:47:00 EDT, Route to Pharmacy Electronically, [facility] #[id number], Partial fill upon patient request if the prescription... Start Date: 11/07/21 Status: Ordered traZODone 50 mg oral tablet 25 mg, 0.5, tablet, By Mouth, Daily at bedtime, PRN, # 30 capsule, Refills 0, Tot. Refills 0, Maintenance, Insomnia, 11/07/21 11:47:00 EDT, Route to Pharmacy Electronically, [facility] #[id number], Partial fill upon patient request if the [...] on: 09/29/21 Sex Patient Care team information Care Team Personnel Name: Evette Luis RN Position: [facility] RN Member Role: Primary Care Nurse Name: Reggie Ortiz MD Position: [facility] INVESTMENT SALES ASSISTANT MD Member Role: Lifetime Consulting Physician Address: Address: [address] [place] [address] Name: Татьяна Guzman Position: [facility] RN Member Role: Primary Care Nurse Name: Delia Vázquez RN Position: [facility] RN Member Role: Primary Care Nurse Name: Kim Rosen RN Position: [facility] RN Member Role: Primary Care Nurse Name: nAdria Zacarias Position: S Outreach Member Role: Lifetime Consulting Physician Name: Afshan Hayes RN Position: [facility] RN Member Role: Primary Care Nurse Name: Roscoe Broderick MD Position: [facility] Primary Care Physician Member Role: PCP Address: Address: [address] [place] [address] [facility] [place], [place] [address] Name: Lary Briones RN Position: [facility] RN Member Role: Primary Care Nurse Care Team Related Persons Name: DARLING VANESSA Address: home [address] [place] [id number] Name: LLOYD VANESSA Address: [place] [address]
--- OUTSIDE RECORDS SUMMARY | 2022-06-04 17:08 | XMS_ITS | Continuity of Care Document ---
Author Name Unknown Organization [facility] Address [address] [place] [address]- Care Team Providers Care Cash Posting Clerk Name Role Phone Roscoe Broderick MD Primary Care Physician [phone] [id number] Date[facility]s): [facility]01/22 - 04/26/22 [facility] [address] [place] [address]- Attending Physician: Mee Gabriel MD Admitting Physician: Mee Gabriel MD Referring Physician: Roscoe Broderick MD Allergies, Adverse Reactions, Alerts Substance Reaction [...] 0 Refills, Maintenance, 03/12/22 15:29:00 EST, Capsule, [facility][id number], Partial fill upon patient request if the prescription is for a schedule II opioid drug.... Start Date: 03/12/22 Status: Ordered aspirin 81 mg oral delayed release tablet 81 mg, By Mouth, Daily, # 30 tablet, Refills 0, Tot. Refills 0, Maintenance, 11/07/21 11:42:00 EDT,Route to Pharmacy Electronically, [facility][id number], Partial fill upon patient request if the prescription is for a schedule II opioid drug.,... Start Date: 11/07/21 Status: Ordered atorvastatin 40 mg oral tablet 1 tablet = 40 mg, By Mouth, Daily, # 30 tablet, 0 Refills, Maintenance, 11/07/21 11:42:00 EDT, Tablet, [facility] #[id number], Partial fill upon patient request if the prescription is for a schedule II opioid drug., 175, cm, 11/07/21 8:17:00 EDT,... Start Date: 11/07/21 Status: Ordered cholecalciferol 10,000 intl units oral capsule 1 capsule = 250 mcg, By Mouth, Daily, # 30 capsule, 0 Refills, Maintenance, 11/07/21 11:44:00 EDT, Capsule, [facility] #[id number], Partial fill upon patient request if the prescription is for a schedule II opioid drug., 175, cm, 11/07/21 8:17:00... Start Date: 11/07/21 Status: Ordered Flonase 50 mcg/inh nasal spray 1 sprays = 50 mcg, Nares, Both, 2 times a day, # 9.9 mL, 0 Refills, Maintenance, 11/07/21 11:43:00 EDT, Nasal [place], [facility] #[id number], Partial fill upon patient request if the prescription is for a schedule II opioid drug., 1 sprays Nares, B... Start Date: 11/07/21 Status: Ordered ibuprofen 200 mg oral tablet 600 mg, 3, tablet, By Mouth, Every 6 hours, PRN, # 60 tablet, Refills 0, Tot. Refills 0, Maintenance, for pain, 03/12/22 15:30:00 EST, Route to Pharmacy Electronically, [facility][id number], Partial fill upon patient request if the prescription... Start Date: 03/12/22 Status: Ordered multivitamin with minerals Antioxidant Multiple Vitamins and Minerals oral capsule See Instructions, By Mouth Daily, # 30 tablet, 0 Refills, Maintenance, 11/07/21 11:45:00 EDT, Capsule, [facility] #[id number], Partial fill upon patient request if the prescription is for a schedule II opioid drug., By Mouth Daily, 175, cm, ... Start Date: 11/07/21 Status: Ordered omeprazole 20 mg oral enteric coated capsule 1 capsule = 20 mg, By Mouth, Daily, # 30 capsule, 0 Refills, Maintenance, 11/07/21 11:45:00 EDT, [facility]apsule, [id number], Partial fill upon patient request if the prescription is for aschedule II opioid drug., 175, cm, 11/07/21 8:17:00... Start Date: 11/07/21 Status: Ordered oxyCODONE 5 mg oral tablet 5 mg, 1, tablet, By Mouth, Every 6 hours, PRN, # 10 tablet, Refills 0, Tot. Refills 0, Maintenance,as needed for pain, 03/12/22 15:29:00 EST, Route to Pharmacy Electronically, [facility] #[id number], Partial fill upon patient request if the presc... Start Date: 03/12/22 Status: Ordered risperiDONE 0.25 mg oral tablet 0.5 mg, 2, tablet, By Mouth, Daily at bedtime, # 60 tablet, Refills 0, Tot. Refills 0, Maintenance,11/07/21 11:46:00 EDT, Route to Pharmacy Electronically, [facility] #[id number], Partial fill upon patient request if the prescription is for a nic... Start Date: 11/07/21 Status: Ordered risperiDONE 0.25 mg oral tablet 0.5 mg, 2, tablet, By Mouth, 2 times a day, PRN, # 30 tablet, Refills 0, Tot. Refills 0, Maintenance, Agitation, 11/07/21 11:47:00 EDT, Route to Pharmacy Electronically, [facility] #[id number], Partial fill upon patient request if the [...] Device Type Site Robotic XI Sacrocolpopexy Laparoscopic Mee Akers MD 03/12/22 Unknown Pelvis Device Identifier Serial Number Lot or Batch Number Manufacturing Date Expiration Date Distinct Identification Code MRI Safety Implantable Status Assigning Authority Unknown Unknown Unknown Unknown 01/10/24 Unknown Unknown Active Un known Patient Care team information Care Team Personnel Name: Evette Luis RN Position: [facility] RN Member Role: Primary Care Nurse Name: Reggie Ortiz MD Position: [facility] CARRIER WASHER MD Member Role: Lifetime Consulting Physician Address: Address: [address] [place] [address] [place] [address]- Name: Татьяна Guzman Position: [facility] RN Member Role: Primary Care Nurse Name: Delia Vázquez RN Position: [facility] RN Member Role: Primary Care Nurse Name: Kim Rosen RN Position: [facility] RN Member Role: Primary Care Nurse Name: Andria Zacarias Position: [facility] Outreach Member Role: Lifetime Consulting Physician Name: Afshan Hayes RN Position: [facility] RN Member Role: Primary Care Nurse Name: Roscoe Broderick MD Position: [facility] Primary Care Physician Member Role: PCP Address: Address: [address] [place] [address] Adult [facility] [place] [address]- Name: Lary Briones RN Position: [facility] RN Member Role: Primary Care Nurse Care Team Related Persons Name: DARLING VANESSA Address: home [address] [place] [address] [address] [place] [address] Name: LLOYD VANESSA Address: [place] [address]
--- OUTSIDE RECORDS SUMMARY | 2022-06-04 17:08 | XMS_ITS | Continuity of Care Document ---
Author Name Unknown Organization [facility] ter Address [address] [place] [id number] Care Team Providers Care Residential Support Specialist Name Role Phone Davie SWEET, Roscoe Ballard Primary Care Physician Encounter [facility] Date(s): 09/29/21 - 10/02/[address] [address]- Encounter Diagnosis Altered mental status(Final) - 09/29/21 Discharge Disposition: A-D/C Home Attending Physician: Magaly SWEET, Lee Turner Admitting Physician: Miguel Angel Boss MD Referring Physician: Not on Staff, Referring MD Allergies, Adverse Reactions, Alerts Substance Reaction Severity Status predniSONE Active cortisone Hives Active Bee Stings Active Benadryl Active penicillins Active Bactrim Rash Active Immunizations Given and Recorded Vaccine Date Status Refusal Reason SARS-CoV-2 (COVID-19) mRNA-1273 vaccine 03/21/21 R ecorded SARS-CoV-2 (COVID-19) mRNA BNT-162b2 vac 04/29/20 Given SARS-CoV-2 (COVID-19) mRNA BNT-162b2 vac 04/08/20 Given tetanus/diphtheria/pertussis, acel(Tdap) 02/01/20 Given Medications Acetaminophen Tablet 650 mg, Tablet, By Mouth, Every 4 hours, PRN for Pain , Mild, Temperature Greater than 100.5, Routine, 09/29/21 15:46:00 EDT Start Date: 09/29/21 Stop Date: 10/03/21 Status: Discontinued amLODIPine 5 mg oral tablet 5 mg, Tablet, By Mouth, 10/02/21 9:00:00 EDT Start Date: 10/02/21 Stop Date: 10/02/21 Status: Completed amLODIPine 5 mg oral tablet 5 mg, 1, tablet, By Mouth, Daily, Refills 0, Maintenance, 10/02/21 15:32:00 EDT, Partial fill upon patient request if the prescription is for a schedule II opioid drug. Start Date: 10/02/21 Stop Date: 11/01/21 Status: Ordered aspirin 81 mg oral delayed release tablet 81 mg, 1, tablet, By Mouth, Daily, Maintenance, 09/30/21 11:46:00 EDT, Partial fill upon patient request if the prescription is for a schedule II opioid drug. Start Date: 09/30/21 Status: Ordered atorvastatin 40 mg oral tablet 1 tablet = 40 mg, By Mouth, Daily, # 90 tablet, 0 Refills, Maintenance, 09/29/21 20:15:00 EDT, Tablet, Partial fill upon patient request if the prescription is for a schedule II opioid drug. Start Date: 09/29/21 Status: Ordered cholecalciferol 1000 intl units oral capsule 1 capsule = 25 mcg, By Mouth, Daily, # 75 capsule, 0 Refills, Maintenance, 05/05/21 11:44:00 EDT, Capsule, Partial fill upon patient request if the prescription is for a schedule II opioid drug. Start Date: 05/05/21 Status: Ordered Colace sodium 100 mg oral capsule 100 mg, 1, capsule, By Mouth, Daily in AM, Refills 0, Maintenance, 05/05/21 11:45:00 EDT, Partial fill upon patient request if the prescription is for a schedule II opioid drug. Start Date: 05/05/21 Status: Ordered Flonase 50 mcg/inh nasal spray 1 sprays, Nares, Both, 2 times a day, Maintenance, 09/30/21 11:47:00 EDT, [place], Partial fill upon patient request if the prescription is for a schedule II opioid drug. Start Date: 09/30/21 Status: Ordered meclizine 12.5 mg oral tablet 1 tablet = 12.5 mg, By Mouth, 3 times a day, PRN for dizziness, # 30 tablet, 0 Refills, Maintenance, 09/29/21 20:15:00 EDT, Tablet, Partial fill upon patient request if the prescription is for a schedule II opioid drug. Start Date: 09/29/21 Status: Ordered melatonin 3 mg oral tablet = 3 mg, By Mouth, Daily at bedtime, PRN Insomnia, # 30 tablet, 0 Refills, Acute 12/03/21 15:34:00 EDT, 10/02/21 15:34:00 EDT, Tablet, [id number], Partial fill upon patient request if the prescription is for a schedule II opioid drug.,... Start Date: 10/02/21 Stop Date: 12/03/21 Status: Ordered metoprolol 25 mg oral tablet 12.5 mg, 0.5, tablet, By Mouth, 2 times a day, # 30 tablet, Refills 0, Tot. Refills 0, Maintenance,10/02/21 15:33:00 EDT, Route to Pharmacy Electronically, [id number], Partial fill upon patient request if the prescription is for a nic... Start Date: 10/02/21 Status: Ordered metoprolol 25 mg oral tablet 12.5 mg, Tablet, By Mouth, 10/02/21 9:00:00 EDT Start Date: 10/02/21 Stop Date: 10/02/21 Status: Completed Ocular Lubricant See Instructions, PRN Other, 2 drops, Eyes, Both Every 4 hours, 0 Refills, Maintenance, 06/22/18 11:15:15 EDT, Ophth Solution Start Date: 06/22/18 Status: Ordered omeprazole 20 mg oral enteric coated capsule 1 capsule = 20 mg, By Mouth, Daily, # 30 capsule, 0 Refills, Maintenance, 05/05/21 11:44:00 EDT, ECCapsule, Partial fill upon patient request if the prescription is for a schedule II opioid drug. Start Date: 05/05/21 Status: Ordered One A Day Women's Complete oral tablet 1 tablet, By Mouth, Daily, Maintenance, 09/30/21 11:47:00 EDT, Partial fill upon patient request ifthe prescription is for a schedule II opioid drug. Start Date: 09/30/21 Status: Ordered SEROquel 100 mg oral tablet 100 mg, 1, tablet, By Mouth, Daily at supper, # 30 tablet, Refills 0, Maintenance, 10/02/21 15:32:00 EDT, Partial fill upon patient request if the prescription is for a schedule II opioid drug. Start Date: 10/02/21 Status: Ordered Tylenol 325 mg oral tablet 650 mg, 2, tablet, By Mouth, Every 4 hours, PRN, # 120 tablet, Refills 0, Maintenance, Headache, 04/29/21 18:24:00 EST, Partial fill upon patient request if the prescription is for a schedule II opioid drug. Start Date: 04/29/21 Status: Ordered Problem List Condition Effective Dates Status Health Status Inform ant Arthritis(Confirmed) Active Bipolar disorder(Confirmed) Active Stroke(Confirmed) Active Thalamic hemorrhage with stroke(Confirmed) Active CAD (coronary artery disease)(Confirmed) Active Diverticulitis(Confirmed) Active Dysphagia(Confirmed) Active Chronic GERD(Confirmed) Active Hiatal hernia with GERD(Confirmed) Active Hyperlipidemia(Confirmed) Active HTN (hypertension)(Confirmed) Active Hypertensive emergency(Confirmed) Active Osteopenia(Confirmed) Active Colon polyp(Confirmed) Active Prolapsed uterus(Confirmed) Active Vertigo(Confirmed) Active Vital Signs Most recent to oldest [Reference Range]: 1 2 3 Weight 75.2 kg (09/30/21 9:54 PM) 73 kg (09/29/21 4:11 PM) 73 kg (09/29/21 11:40 AM) Oxygen Saturation [94-100 %] 96 % (10/02/21 7:48 AM) 100 % (10/02/21 3:00 AM) 98 % (10/01/21 8:24 PM) Pulse Rate [55-90 bpm] 71 bpm (10/02/21 8:21 AM) 71 bpm (10/02/21 7:48 AM) 70 bpm (10/02/21 3:00 AM) Blood Pressure [90-138/55-84 mm Hg] 146/74mm Hg *H* (10/02/21 8:21 AM) 146/74mm Hg *H* (10/02/21 8:21 AM) 146/74mm Hg *H* (10/02/21 7:48 AM) Respiratory Rate [16-30 br/min] 17 br/min (10/02/21 7:48 AM) 16 br/min (10/02/21 3:00 AM) 18 br/min (10/01/21 10:22 PM) Temperature [96.8-100.4 DegF] 97.7 DegF (10/02/21 7:48 AM) 97.6 DegF (10/02/21 3:00 AM) 97.5 DegF (10/01/21 8:24 PM) Mode of Delivery (Oxygen) Room air (10/02/21 7:48 AM) Room air (10/02/21 3:00 AM) Room air (10/01/21 8:24 PM) Blood pressure sites Arm, left (10/02/21 7:48 AM) Arm, right (10/02/21 3:00 AM) Arm, left (10/01/21 8:24 PM) Temperature Route Oral (10/02/21 7:48 AM) Oral (10/02/21 3:00 AM) Oral (10/01/21 8:24 PM) Weight Obtained Via Bed scale (09/30/21 9:54 PM) Social History Social History Type Response Smoking Status Former smoker, quit more than 30 days ago entered on: 09/29/21 Sex
[2022-06-04 18:46] VITALS: BP 190/84; PULSE 87; RESP 18; TEMP 36.2; O2SAT 94
--- NOTE | 2022-06-04 18:53 | PC.ADMIT ---
[place] S1 [place] [facility] Pt pleasant and somewhat manic. talking incessantly and difficult to redirect. Admitted to this unit for AMS Bp high and pt not on HTN meds. Pt happy to be in this unit signed CV and stated no one is getting me out but me Refusing presently to sign a release for her son but did want her to know she is here. Stating he can come visit as long as he behaves himself and doesn't bang the wall or anything Giving tour of unit and given meal.
[2022-06-04] MEDS: risperiDONE 0.5 MG TABLET PO (20:47)
[2022-06-05] MEDS: Acetaminophen 325 MG TABLET 650 MG PO (04:39)
[2022-06-05 08:18] LABS: Estimated Average Glucose 111 mg/dL; Hemoglobin A1c % 5.5 %
[2022-06-05 08:25] VITALS: BP 141/71; PULSE 96; RESP 16; TEMP 36.4; O2SAT 97
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
[2022-06-05 08:58] LABS: Alanine Aminotransferase 16 U/L (0-31); Albumin Level 4.2 g/dL (3.5-5.0); Alkaline Phosphatase 88 U/L (39-117); Anion Gap 11 (12-20); Aspartate Amino Transferase 18 U/L (5-31); Bilirubin Total 0.7 mg/dL (0.0-1.0); Blood Urea Nitrogen 21 mg/dL (9-16); Carbon Dioxide 27 mmol/L (22-29); Chloride 109 mmol/L (96-108); Cholesterol 214 mg/dL; Estimated Glomerular Filt Rate 57; Glucose Fasting 107 mg/dL (60-99); HDL Cholesterol 70 mg/dL; LDL Cholesterol Calculated 126 mg/dl; Potassium 4.1 mmol/L (3.3-5.1); Sodium 143 mmol/L (135-145); Total Protein 6.7 g/dL (6.5-8.0); Triglycerides 92 mg/dL
[2022-06-05 09:26] LABS: Folate 12.7 ng/mL (> or = 4.0); Thyroid Stimulating Hormone 2.98 uIU/mL (0.32-4.0); Vitamin B12 478 pg/mL (200-900)
[2022-06-05] MEDS: Aspirin 81 MG TAB.CHEW PO (09:54)
[2022-06-05] MEDS: Omeprazole 20 MG CAPSULE.DR PO (09:55)
[2022-06-05] MEDS: Cholecalciferol (Vitamin D3) 25 MCG TABLET PO (09:55)
[2022-06-05] MEDS: Atorvastatin Calcium 40 MG TABLET PO (09:55)
[2022-06-05] MEDS: risperiDONE 0.5 MG TABLET PO ×2 (09:55→20:06)
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
[2022-06-05 18:00] VITALS: BP 140/58; PULSE 78; RESP 16; TEMP 36.8; O2SAT 94
[2022-06-06] MEDS: Acetaminophen 325 MG TABLET 650 MG PO ×2 (03:33→11:02)
[2022-06-06] MEDS: Omeprazole 20 MG CAPSULE.DR PO (05:23)
[2022-06-06 06:00] VITALS: BP 157/76; PULSE 83; RESP 17; TEMP 35.9; O2SAT 97
[2022-06-06] MEDS: Atorvastatin Calcium 40 MG TABLET PO (08:44)
[2022-06-06] MEDS: risperiDONE 0.5 MG TABLET PO ×2 (08:44→20:19)
[2022-06-06] MEDS: Aspirin 81 MG TAB.CHEW PO (08:44)
[2022-06-06] MEDS: Cholecalciferol (Vitamin D3) 25 MCG TABLET PO (08:45)
--- NOTE | 2022-06-06 11:15 | P.PNPSI_ITS ---
Subjective Subjective Date of Service: 06/06/22 Reason For Visit: SI Interim History: The patient seen has elevated mood state patient elevated mood state irritability agitation Diagnostics Vital Signs (24Hr): Vital Signs - 24 hr 06/05/22 18:00 06/06/22 06:00 Temperature 98.3 F 96.7 F L Pulse Rate 78 83 Respiratory Rate 16 17 Blood Pressure 140/58 H 157/76 H Pulse Oximetry 94 97 Oxygen Delivery Method Room Air Room Air Labs 06/05/22 07:50 Labs: Laboratory Results - last 48 hr 06/05/22 06/05/22 07:50 07:50 Sodium 143 Potassium 4.1 Chloride 109 H Carbon Dioxide 27 Anion Gap 11 L BUN 21 H Creatinine 0.95 Estim Creat Clear Calc TNP Estimated GFR 57 Fasting Glucose 107 H Estimat Average Glucose 111 Hemoglobin A1c % 5.5 Calcium 10.0 Total Bilirubin 0.7 AST 18 ALT 16 Alkaline Phosphatase 88 Total Protein 6.7 Albumin 4.2 Triglycerides 92 Cholesterol 214 LDL Cholesterol, Calc 126 HDL Cholesterol 70 Vitamin B12 478 Folate 12.7 TSH 2.98 Medications Medications Current Medications Acetaminophen (Acetaminophen 325 Mg Tablet) 650 mg PO Q6H PRN PRN Reason: Headache/Pain Mild Scale (1-3) Last Admin: 06/06/22 11:02 Dose: 650 mg Al Hydroxide/Mg Hydroxide (Magnesium Hydrox/Alum Hydrox 30 Ml Oral.Susp) 30 ml PO Q6H PRN PRN Reason: Heartburn/Nausea Aspirin (Aspirin 81 Mg Tab.Chew) 81 mg PO DAILY [facility] Last Admin: 06/06/22 08:44 Dose: 81 mg Atorvastatin Calcium (Atorvastatin Calcium 40 Mg Tablet) 40 mg PO DAILY [facility] Last Admin: 06/06/22 08:44 Dose: 40 mg Docusate Sodium (Docusate Sodium 100 Mg Capsule) 100 mg PO BID PRN PRN Reason: Constipation Hydroxyzine HCl (Hydroxyzine Hcl 25 Mg Tablet) 25 mg PO Q6H PRN PRN Reason: Anxiety Magnesium Hydroxide (Milk Of Magnesia 30 Ml Oral.Susp) 30 ml PO DAILY PRN PRN Reason: Constipation Non-Formulary Medication (Fluticasone Furoate) 50 mcg INHALE BID [facility] Omeprazole (Omeprazole 20 Mg Capsule.Dr) 20 mg PO DAILY@0630 [facility] Last Admin: 06/06/22 05:23 Dose: 20 mg Oxycodone HCl (Oxycodone Hcl Immed Release 5 Mg Tablet) 5 mg PO Q6H PRN PRN Reason: Pain, Severe (Pain Scale 7-10) Risperidone (Risperidone 0.5 Mg Tablet) 0.5 mg PO BID [facility] Last Admin: 06/06/22 08:44 Dose: 0.5 mg Trazodone HCl (Trazodone Hcl 50 Mg Tablet) 50 mg PO BEDTIME PRN PRN Reason: Insomnia Vitamin D (Cholecalciferol (Vitamin D3) 25 Mcg Tablet) 25 mcg PO DAILY [facility] Last Admin: 06/06/22 08:45 Dose: 25 mcg Allergies Allergies Allergy/AdvReac Type Severity Reaction Status Date / Time Penicillins [PENICILLINS] Allergy Severe HIVES Unverified 06/05/22 15:19 bee pollen [BEE STINGS] Allergy Unknown RASH Unverified 11/09/19 18:41 cortisone [CORTISONE] Allergy Unknown RASH Unverified 11/09/19 18:41 penicillin V Allergy Unknown rash Verified 08/07/19 00:00 Chocolate AdvReac Vomiting Verified 06/05/22 15:19 Benadryl Allergy Mild Vomiting Uncoded 06/05/22 15:19 bees Allergy Unknown swells up Uncoded 08/07/19 00:00 Assessment & Plan Assessment & Plan (1) Routine history and physical examination of adult: Status: Inactive Code(s): Z00.00 - Encounter for general adult medical examination without abnormal findings (2) Bipolar disorder: Status: Acute Code(s): F31.9 - Bipolar disorder, unspecified Assessment and Plan: Patient on Risperdal somewhat euphoric elevated encourage med compliance Reason for continued inpatient stay Substantial Risk for: inability to function and rapid decompensation Time Spent With Patient Time: Total time managing care of this patient today ____ minutes.
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
[2022-06-06] MEDS: amLODIPine Besylate 5 MG TABLET PO (13:45)
[2022-06-06] MEDS: hydrOXYzine HCL 25 MG TABLET PO (17:54)
[2022-06-06 18:00] VITALS: BP 146/100; PULSE 80; RESP 16; TEMP 36.5; O2SAT 97
[2022-06-06] MEDS: traZODone HCL 50 MG TABLET PO (20:20)
[2022-06-07] MEDS: Omeprazole 20 MG CAPSULE.DR PO (05:30)
[2022-06-07 08:00] VITALS: BP 154/72; PULSE 80; RESP 16; TEMP 36.7; O2SAT 96
[2022-06-07] MEDS: Cholecalciferol (Vitamin D3) 25 MCG TABLET PO (08:41)
[2022-06-07] MEDS: amLODIPine Besylate 5 MG TABLET PO (08:41)
[2022-06-07] MEDS: Aspirin 81 MG TAB.CHEW PO (08:41)
[2022-06-07] MEDS: risperiDONE 0.5 MG TABLET PO ×2 (08:41→18:17)
[2022-06-07] MEDS: Atorvastatin Calcium 40 MG TABLET PO (08:41)
--- NOTE | 2022-06-07 15:50 | P.PNPSI_ITS ---
Subjective Subjective Date of Service: 06/07/22 Reason For Visit: SI Subjective Notes: Conditional Voluntary Interim History: Patient in truce of manic nonsensical at times history of noncompliance. Increase Risperdal as tolerated would benefit from long-acting injectable consider Depakote Medication Compliance: Intermittent Mental Status Exam Mental Status Exam Patient Appearance: Appropriate Patient Orientation: Person and Situation Level of Consciousness: Awake and Appropriate Patient Behavior: Guarded and Passive Mood Description: Calm Affect Description: Withdrawn and Constricted Patient Cognition Impaired: Yes Ability to Follow Directions: Good Speech Pattern: Clear Hallucinations: None Delusions: Not Present Thought Process: Racing, Distracted and Linear Thought Content: positive for [place] and positive for [place] Judgement: Poor Diagnostics Vital Signs (24Hr): Vital Signs - 24 hr 06/06/22 18:00 06/07/22 08:00 Temperature 97.7 F 98.1 F Pulse Rate 80 80 Respiratory Rate 16 16 Blood Pressure 146/100 H 154/72 H Pulse Oximetry 97 96 Oxygen Delivery Method Room Air Room Air Labs 06/05/22 07:50 Medications Medications Current Medications Acetaminophen (Acetaminophen 325 Mg Tablet) 650 mg PO Q6H PRN PRN Reason: Headache/Pain Mild Scale (1-3) Last Admin: 06/06/22 11:02 Dose: 650 mg Al Hydroxide/Mg Hydroxide (Magnesium Hydrox/Alum Hydrox 30 Ml Oral.Susp) 30 ml PO Q6H PRN PRN Reason: Heartburn/Nausea Amlodipine Besylate (Amlodipine Besylate 5 Mg Tablet) 5 mg PO DAILY [facility]; Protocol Last Admin: 06/07/22 08:41 Dose: 5 mg Aspirin (Aspirin 81 Mg Tab.Chew) 81 mg PO DAILY [facility] Last Admin: 06/07/22 08:41 Dose: 81 mg Atorvastatin Calcium (Atorvastatin Calcium 40 Mg Tablet) 40 mg PO DAILY [facility] Last Admin: 06/07/22 08:41 Dose: 40 mg Docusate Sodium (Docusate Sodium 100 Mg Capsule) 100 mg PO BID PRN PRN Reason: Constipation Hydroxyzine HCl (Hydroxyzine Hcl 25 Mg Tablet) 25 mg PO Q6H PRN PRN Reason: Anxiety Last Admin: 06/06/22 17:54 Dose: 25 mg Magnesium Hydroxide (Milk Of Magnesia 30 Ml Oral.Susp) 30 ml PO DAILY PRN PRN Reason: Constipation Non-Formulary Medication (Fluticasone Furoate) 50 mcg INHALE BID [facility] Omeprazole (Omeprazole 20 Mg Capsule.Dr) 20 mg PO DAILY@0630 [facility] Last Admin: 06/07/22 05:30 Dose: 20 mg Oxycodone HCl (Oxycodone Hcl Immed Release 5 Mg Tablet) 5 mg PO Q6H PRN PRN Reason: Pain, Severe (Pain Scale 7-10) Trazodone HCl (Trazodone Hcl 50 Mg Tablet) 50 mg PO BEDTIME PRN PRN Reason: Insomnia Last Admin: 06/06/22 20:20 Dose: 50 mg Vitamin D (Cholecalciferol (Vitamin D3) 25 Mcg Tablet) 25 mcg PO DAILY [facility] Last Admin: 06/07/22 08:41 Dose: 25 mcg Allergies Allergies Allergy/AdvReac Type Severity Reaction Status Date / Time Penicillins [PENICILLINS] Allergy Severe HIVES Unverified 06/05/22 15:19 bee pollen [BEE STINGS] Allergy Unknown RASH Unverified 11/09/19 18:41 cortisone [CORTISONE] Allergy Unknown RASH Unverified 11/09/19 18:41 penicillin V Allergy Unknown rash Verified 08/07/19 00:00 Chocolate AdvReac Vomiting Verified 06/05/22 15:19 Benadryl Allergy Mild Vomiting Uncoded 06/05/22 15:19 bees Allergy Unknown swells up Uncoded 08/07/19 00:00 Assessment & Plan Assessment & Plan (1) Routine history and physical examination of adult: Status: Inactive Code(s): Z00.00 - Encounter for general adult medical examination without abnormal findings (2) Bipolar disorder: Status: Acute Code(s): F31.9 - Bipolar disorder, unspecified Assessment and Plan: Patient on Risperdal somewhat euphoric elevated encourage med compliance increase Risperdal Reason for continued inpatient stay Substantial Risk for: harm to others, inability to function and rapid decompensation Time Spent With Patient Time: Total time managing care of this patient today ____ minutes.
[2022-06-07 18:00] VITALS: BP 148/75; PULSE 84; RESP 18; TEMP 36.2; O2SAT 96
[2022-06-08] MEDS: Omeprazole 20 MG CAPSULE.DR PO (04:32)
[2022-06-08 08:00] VITALS: BP 141/78; PULSE 89; RESP 18; TEMP 36.8; O2SAT 96
[2022-06-08] MEDS: amLODIPine Besylate 5 MG TABLET PO (08:29)
[2022-06-08] MEDS: Cholecalciferol (Vitamin D3) 25 MCG TABLET PO (08:30)
[2022-06-08] MEDS: risperiDONE 0.5 MG TABLET PO (08:30)
[2022-06-08] MEDS: Aspirin 81 MG TAB.CHEW PO (08:30)
--- NOTE | 2022-06-08 09:42 | P.PNPSI_ITS ---
Subjective Subjective Date of Service: 06/08/22 Reason For Visit: SI Subjective Notes: Conditional Voluntary Interim History: the nursing staff reported the patient refused her risperidone last night. She has been intrusive hyperverbal nonsensical at times, walking around the unit. She needs to be on one-to-one overnight. On interview the patient was sedated, sleeping since she was grossly manic disorganized with flight of ideas at night. Mental Status Exam Mental Status Exam Patient Appearance: Appropriate Patient Orientation: Person and Situation Level of Consciousness: Awake and Appropriate Patient Behavior: Guarded and Passive Mood Description: Calm Affect Description: Withdrawn and Constricted Patient Cognition Impaired: Yes Ability to Follow Directions: Good Speech Pattern: Clear Hallucinations: None Delusions: Not Present Thought Process: Racing, Distracted and Linear Thought Content: positive for [place] and positive for [place] Judgement: Poor Diagnostics Vital Signs (24Hr): Vital Signs - 24 hr 06/07/22 18:00 06/08/22 08:00 Temperature 97.1 F 98.2 F Pulse Rate 84 89 Respiratory Rate 18 18 Blood Pressure 148/75 H 141/78 H Pulse Oximetry 96 96 Oxygen Delivery Method Room Air Room Air Labs 06/05/22 07:50 Medications Medications Current Medications Acetaminophen (Acetaminophen 325 Mg Tablet) 650 mg PO Q6H PRN PRN Reason: Headache/Pain Mild Scale (1-3) Last Admin: 06/06/22 11:02 Dose: 650 mg Al Hydroxide/Mg Hydroxide (Magnesium Hydrox/Alum Hydrox 30 Ml Oral.Susp) 30 ml PO Q6H PRN PRN Reason: Heartburn/Nausea Amlodipine Besylate (Amlodipine Besylate 5 Mg Tablet) 5 mg PO DAILY [facility]; Protocol Last Admin: 06/08/22 08:29 Dose: 5 mg Aspirin (Aspirin 81 Mg Tab.Chew) 81 mg PO DAILY [facility] Last Admin: 06/08/22 08:30 Dose: 81 mg Atorvastatin Calcium (Atorvastatin Calcium 40 Mg Tablet) 40 mg PO DAILY [facility] Last Admin: 06/08/22 09:27 Dose: Not Given Docusate Sodium (Docusate Sodium 100 Mg Capsule) 100 mg PO BID PRN PRN Reason: Constipation Hydroxyzine HCl (Hydroxyzine Hcl 25 Mg Tablet) 25 mg PO Q6H PRN PRN Reason: Anxiety Last Admin: 06/06/22 17:54 Dose: 25 mg Magnesium Hydroxide (Milk Of Magnesia 30 Ml Oral.Susp) 30 ml PO DAILY PRN PRN Reason: Constipation Non-Formulary Medication (Fluticasone Furoate) 50 mcg INHALE BID [facility] Omeprazole (Omeprazole 20 Mg Capsule.Dr) 20 mg PO DAILY@0630 [facility] Last Admin: 06/08/22 04:32 Dose: 20 mg Oxycodone HCl (Oxycodone Hcl Immed Release 5 Mg Tablet) 5 mg PO Q6H PRN PRN Reason: Pain, Severe (Pain Scale 7-10) Risperidone (Risperidone 0.5 Mg Tablet) 0.5 mg PO BID PRN PRN Reason: Psychosis Last Admin: 06/07/22 18:17 Dose: 0.5 mg Risperidone (Risperidone 1 Mg Tablet) 1 mg PO BEDTIME [facility] Last Admin: 06/07/22 23:52 Dose: Not Given Risperidone (Risperidone 0.5 Mg Tablet) 0.5 mg PO DAILY [facility] Last Admin: 06/08/22 08:30 Dose: 0.5 mg Trazodone HCl (Trazodone Hcl 50 Mg Tablet) 50 mg PO BEDTIME PRN PRN Reason: Insomnia Last Admin: 06/06/22 20:20 Dose: 50 mg Vitamin D (Cholecalciferol (Vitamin D3) 25 Mcg Tablet) 25 mcg PO DAILY [facility] Last Admin: 06/08/22 08:30 Dose: 25 mcg Allergies Allergies Allergy/AdvReac Type Severity Reaction Status Date / Time Penicillins [PENICILLINS] Allergy Severe HIVES Unverified 06/05/22 15:19 bee pollen [BEE STINGS] Allergy Unknown RASH Unverified 11/09/19 18:41 cortisone [CORTISONE] Allergy Unknown RASH Unverified 11/09/19 18:41 penicillin V Allergy Unknown rash Verified 08/07/19 00:00 Chocolate AdvReac Vomiting Verified 06/05/22 15:19 Benadryl Allergy Mild Vomiting Uncoded 06/05/22 15:19 bees Allergy Unknown swells up Uncoded 08/07/19 00:00 Assessment & Plan Assessment & Plan (1) Routine history and physical examination of adult: Status: Inactive Code(s): Z00.00 - Encounter for general adult medical examination without abnormal findings (2) Bipolar disorder: Status: Acute Code(s): F31.9 - Bipolar disorder, unspecified Assessment and Plan: Patient on Risperdal somewhat euphoric elevated encourage med compliance Plan Elderly female with a long history of bipolar disorder admitted for noncompliance with Risperdal with clear symptoms of cony. Plan 1. Gather collateral information. 2. Encourage compliance of Risperdal that was initially increase it up to 1 mg p.o. q.h.s. and 0.5 p.o. q.a.m.. 3. If the patient does not improved she refused medications will need to filed for Section 7 and 8. Reason for continued inpatient stay Substantial Risk for: inability to function, rapid decompensation and med/psych decompensation Time Spent With Patient Time: Total time managing care of this patient today _20___ minutes.
[2022-06-08] MEDS: hydrOXYzine HCL 25 MG TABLET PO (17:00)
[2022-06-08 18:00] VITALS: BP 181/81; PULSE 81; RESP 18; TEMP 36.7; O2SAT 96
[2022-06-08] MEDS: risperiDONE 1 MG TABLET PO (21:25)
[2022-06-09 06:00] VITALS: BP 131/64; PULSE 88; RESP 16; TEMP 36.3; O2SAT 95
[2022-06-09] MEDS: Aspirin 81 MG TAB.CHEW PO (08:31)
[2022-06-09] MEDS: Omeprazole 20 MG CAPSULE.DR PO (08:32)
[2022-06-09] MEDS: Cholecalciferol (Vitamin D3) 25 MCG TABLET PO (08:32)
[2022-06-09] MEDS: amLODIPine Besylate 5 MG TABLET PO (08:32)
[2022-06-09] MEDS: risperiDONE 0.5 MG TABLET PO ×2 (08:32→18:35)
[2022-06-09] MEDS: Atorvastatin Calcium 40 MG TABLET PO (08:32)
[2022-06-09] MEDS: Magnesium Hydrox/Alum Hydrox 30 ML ORAL.SUSP PO (09:36)
--- NOTE | 2022-06-09 11:52 | P.PNPSI_ITS ---
Subjective Subjective Date of Service: 06/09/22 Reason For Visit: SI Subjective Notes: Conditional Voluntary Interim History: The patient has been manic, with fast speech talkative intrusive she slept on the sensory room last night. The rn social services reported that she contact her son and she had an affirmed healthcare proxy but he is concerned that in the community she is not compliant with medication. The occupational therapist reported that she was intrusive and she did not attend to groups but they work on one-to-one unfortunately very limited due to the flight of ideas. On interview the patient was having racing thoughts, with thought blocking at times very cheerful and pleasant. But, she is grossly manic unable to take care of herself at this moment Mental Status Exam Mental Status Exam Patient Appearance: Well Grooomed and Appropriate Patient Orientation: Person and Situation Level of Consciousness: Awake and Appropriate Patient Behavior: Guarded and Passive Mood Description: Labile Affect Description: Labile Patient Cognition Impaired: Yes Ability to Follow Directions: Fair Speech Pattern: Rapid and Loud Hallucinations: None Delusions: Grandiose Thought Process: Racing and Distracted Thought Content: positive for [place], positive for [place] and positive for Thought Blocking Judgement: Poor Diagnostics Vital Signs (24Hr): Vital Signs - 24 hr 06/08/22 18:00 06/09/22 06:00 Temperature 98.0 F 97.4 F Pulse Rate 81 88 Respiratory Rate 18 16 Blood Pressure 181/81 H 131/64 Pulse Oximetry 96 95 Oxygen Delivery Method Room Air Room Air Labs 06/05/22 07:50 Medications Medications Current Medications Acetaminophen (Acetaminophen 325 Mg Tablet) 650 mg PO Q6H PRN PRN Reason: Headache/Pain Mild Scale (1-3) Last Admin: 06/06/22 11:02 Dose: 650 mg Al Hydroxide/Mg Hydroxide (Magnesium Hydrox/Alum Hydrox 30 Ml Oral.Susp) 30 ml PO Q6H PRN PRN Reason: Heartburn/Nausea Last Admin: 06/09/22 09:36 Dose: 30 ml Amlodipine Besylate (Amlodipine Besylate 5 Mg Tablet) 5 mg PO DAILY [facility]; Protocol Last Admin: 06/09/22 08:32 Dose: 5 mg Aspirin (Aspirin 81 Mg Tab.Chew) 81 mg PO DAILY [facility] Last Admin: 06/09/22 08:31 Dose: 81 mg Atorvastatin Calcium (Atorvastatin Calcium 40 Mg Tablet) 40 mg PO DAILY [facility] Last Admin: 06/09/22 08:32 Dose: 40 mg Docusate Sodium (Docusate Sodium 100 Mg Capsule) 100 mg PO BID PRN PRN Reason: Constipation Hydroxyzine HCl (Hydroxyzine Hcl 25 Mg Tablet) 25 mg PO Q6H PRN PRN Reason: Anxiety Last Admin: 06/08/22 17:00 Dose: 25 mg Magnesium Hydroxide (Milk Of Magnesia 30 Ml Oral.Susp) 30 ml PO DAILY PRN PRN Reason: Constipation Non-Formulary Medication (Fluticasone Furoate) 50 mcg INHALE BID [facility] Omeprazole (Omeprazole 20 Mg Capsule.Dr) 20 mg PO DAILY@0630 [facility] Last Admin: 06/09/22 08:32 Dose: 20 mg Oxycodone HCl (Oxycodone Hcl Immed Release 5 Mg Tablet) 5 mg PO Q6H PRN PRN Reason: Pain, Severe (Pain Scale 7-10) Risperidone (Risperidone 0.5 Mg Tablet) 0.5 mg PO BID PRN PRN Reason: Psychosis Last Admin: 06/07/22 18:17 Dose: 0.5 mg Risperidone (Risperidone 1 Mg Tablet) 1 mg PO BEDTIME [facility] Last Admin: 06/08/22 21:25 Dose: 1 mg Risperidone (Risperidone 0.5 Mg Tablet) 0.5 mg PO DAILY [facility] Last Admin: 06/09/22 08:32 Dose: 0.5 mg Trazodone HCl (Trazodone Hcl 50 Mg Tablet) 50 mg PO BEDTIME PRN PRN Reason: Insomnia Last Admin: 06/06/22 20:20 Dose: 50 mg Vitamin D (Cholecalciferol (Vitamin D3) 25 Mcg Tablet) 25 mcg PO DAILY [facility] Last Admin: 06/09/22 08:32 Dose: 25 mcg Allergies Allergies Allergy/AdvReac Type Severity Reaction Status Date / Time Penicillins [PENICILLINS] Allergy Severe HIVES Unverified 06/05/22 15:19 bee pollen [BEE STINGS] Allergy Unknown RASH Unverified 11/09/19 18:41 cortisone [CORTISONE] Allergy Unknown RASH Unverified 11/09/19 18:41 penicillin V Allergy Unknown rash Verified 08/07/19 00:00 Chocolate AdvReac Vomiting Verified 06/05/22 15:19 Benadryl Allergy Mild Vomiting Uncoded 06/05/22 15:19 bees Allergy Unknown swells up Uncoded 08/07/19 00:00 Assessment & Plan Assessment & Plan (1) Routine history and physical examination of adult: Status: Inactive Code(s): Z00.00 - Encounter for general adult medical examination without abnormal findings (2) Bipolar disorder: Status: Acute Code(s): F31.9 - Bipolar disorder, unspecified Assessment and Plan: Patient on Risperdal somewhat euphoric elevated encourage med compliance incre ase Risperdal Plan the patient is an elderly female with a long history of bipolar disorder with several prior admissions into the hospital for noncompliance. Historically the patient responds very well to Risperdal but she had been nonco mpliant in the community and decompensated with a manic episode. Plan 1. Gather collateral information. 2. Continue increased of Risperdal up to 1 mg p.o. b.i.d. starting today a poorly team. 3. We will explore the possibility of Invega Sustenna or Risperdal Consta for long-acting injectable in the community. 4. Continue with medical work Reason for continued inpatient stay Substantial Risk for: inability to function, rapid decompensation and med/psych decompensation Time Spent With Patient Time: Total time managing care of this patient today __20__ minutes.
[2022-06-09 18:00] VITALS: BP 132/73; PULSE 80; RESP 16; TEMP 36.7; O2SAT 95
[2022-06-09] MEDS: hydrOXYzine HCL 25 MG TABLET PO (18:35)
[2022-06-09] MEDS: risperiDONE 1 MG TABLET PO (20:16)
[2022-06-10] MEDS: Omeprazole 20 MG CAPSULE.DR PO (05:34)
[2022-06-10] MEDS: hydrOXYzine HCL 25 MG TABLET PO (05:34)
[2022-06-10 07:50] VITALS: BP 141/69; PULSE 80; RESP 16; TEMP 36.7; O2SAT 95
[2022-06-10] MEDS: amLODIPine Besylate 5 MG TABLET PO (09:16)
[2022-06-10] MEDS: risperiDONE 1 MG TABLET PO ×2 (09:16→20:40)
[2022-06-10] MEDS: Atorvastatin Calcium 40 MG TABLET PO (09:16)
[2022-06-10] MEDS: Cholecalciferol (Vitamin D3) 25 MCG TABLET PO (09:16)
[2022-06-10] MEDS: Aspirin 81 MG TAB.CHEW PO (09:17)
--- NOTE | 2022-06-10 13:20 | HO.PSYCHPN ---
Subjective Subjective Date of Service: 06/10/22 Reason For Visit: SI Interim History: The nursing staff reported the patient had been compliant with medications, she has been happily manic intrusive at times but redirectable. She slept well last night. The social organization professor reported that she spoke with her son and reported that he has the affirmed healthcare proxy but there is no way that they can continue treatment when she is in the community sings she refuses treatment outside. They are going to consult with with decision review regarding the formulary of her insurance so we can try long-acting injectables. On interview the patient denies new symptoms she is manic with fast patient and flight of ideas but easily redirectable. Risperdal has been increased up to 1 mg p.o. b.i.d. Mental Status Exam Mental Status Exam Patient Appearance: Well Grooomed and Appropriate Patient Orientation: Person and Situation Level of Consciousness: Awake and Appropriate Patient Behavior: Anxious and Impulsive Mood Description: Cheerful and Anxious Affect Description: Labile Patient Cognition Impaired: Yes Ability to Follow Directions: Good Speech Pattern: Rapid Hallucinations: None Delusions: Grandiose Thought Process: Racing and Illogical Thought Content: positive for [place], positive for Thought Blocking and positive for Disorganized Judgement: Poor Diagnostics Vital Signs (24Hr): Vital Signs - 24 hr 06/09/22 18:00 06/10/22 07:50 Temperature 98.0 F 98.1 F Pulse Rate 80 80 Respiratory Rate 16 16 Blood Pressure 132/73 141/69 H Pulse Oximetry 95 95 Oxygen Delivery Method Room Air Room Air Labs 06/05/22 07:50 Medications Medications Current Medications Acetaminophen (Acetaminophen 325 Mg Tablet) 650 mg PO Q6H PRN PRN Reason: Headache/Pain Mild Scale (1-3) Last Admin: 06/06/22 11:02 Dose: 650 mg Al Hydroxide/Mg Hydroxide (Magnesium Hydrox/Alum Hydrox 30 Ml Oral.Susp) 30 ml PO Q6H PRN PRN Reason: Heartburn/Nausea Last Admin: 06/09/22 09:36 Dose: 30 ml Amlodipine Besylate (Amlodipine Besylate 5 Mg Tablet) 5 mg PO DAILY [facility]; Protocol Last Admin: 06/10/22 09:16 Dose: 5 mg Aspirin (Aspirin 81 Mg Tab.Chew) 81 mg PO DAILY [facility] Last Admin: 06/10/22 09:17 Dose: 81 mg Atorvastatin Calcium (Atorvastatin Calcium 40 Mg Tablet) 40 mg PO DAILY [facility] Last Admin: 06/10/22 09:16 Dose: 40 mg Docusate Sodium (Docusate Sodium 100 Mg Capsule) 100 mg PO BID PRN PRN Reason: Constipation Hydroxyzine HCl (Hydroxyzine Hcl 25 Mg Tablet) 25 mg PO Q6H PRN PRN Reason: Anxiety Last Admin: 06/10/22 05:34 Dose: 25 mg Magnesium Hydroxide (Milk Of Magnesia 30 Ml Oral.Susp) 30 ml PO DAILY PRN PRN Reason: Constipation Non-Formulary Medication (Fluticasone Furoate) 50 mcg INHALE BID [facility] Omeprazole (Omeprazole 20 Mg Capsule.Dr) 20 mg PO DAILY@0630 [facility] Last Admin: 06/10/22 05:34 Dose: 20 mg Oxycodone HCl (Oxycodone Hcl Immed Release 5 Mg Tablet) 5 mg PO Q6H PRN PRN Reason: Pain, Severe (Pain Scale 7-10) Risperidone (Risperidone 0.5 Mg Tablet) 0.5 mg PO BID PRN PRN Reason: Psychosis Last Admin: 06/09/22 18:35 Dose: 0.5 mg Risperidone (Risperidone 1 Mg Tablet) 1 mg PO BEDTIME [facility] Last Admin: 06/09/22 20:16 Dose: 1 mg Risperidone (Risperidone 1 Mg Tablet) 1 mg PO DAILY [facility] Last Admin: 06/10/22 09:16 Dose: 1 mg Trazodone HCl (Trazodone Hcl 50 Mg Tablet) 50 mg PO BEDTIME PRN PRN Reason: Insomnia Last Admin: 06/06/22 20:20 Dose: 50 mg Vitamin D (Cholecalciferol (Vitamin D3) 25 Mcg Tablet) 25 mcg PO DAILY [facility] Last Admin: 06/10/22 09:16 Dose: 25 mcg Allergies Allergies Allergy/AdvReac Type Severity Reaction Status Date / Time Penicillins [PENICILLINS] Allergy Severe HIVES Unverified 06/05/22 15:19 bee pollen [BEE STINGS] Allergy Unknown RASH Unverified 11/09/19 18:41 cortisone [CORTISONE] Allergy Unknown RASH Unverified 11/09/19 18:41 penicillin V Allergy Unknown rash Verified 08/07/19 00:00 Chocolate AdvReac Vomiting Verified 06/05/22 15:19 Benadryl Allergy Mild Vomiting Uncoded 06/05/22 15:19 bees Allergy Unknown swells up Uncoded 08/07/19 00:00 Assessment & Plan Assessment & Plan (1) Bipolar disorder: Status: Acute Code(s): F31.9 - Bipolar disorder, unspecified Assessment and Plan: Patient on Risperdal somewhat euphoric elevated encourage med compliance increase Risperdal (2) Routine history and physical examination of adult: Status: Inactive Code(s): Z00.00 - Encounter for general adult medical examination without abnormal findings Plan the patient is an elderly female with a long history of bipolar disorder with several prior admissions into the hospital for noncompliance. Historically the patient responds very well to Risperdal but she had been noncompliant in the community and decompensated with a manic episode. Plan 1. Gather collateral information. 2. Continue increased of Risperdal up to 1 mg p.o. b.i.d. 3. We will explore the possibility of Invega Sustenna or Risperdal Consta for long-acting injectable in the community. 4. Continue with medical work Reason for continued inpatient stay Substantial Risk for: inability to function, rapid decompensation and med/psych decompensation Time Spent With Patient Time: Total time managing care of this patient today __20__ minutes.
[2022-06-10 18:00] VITALS: BP 148/71; PULSE 91; RESP 18; TEMP 36.2; O2SAT 95
[2022-06-10] MEDS: traZODone HCL 50 MG TABLET PO (20:40)
[2022-06-11 06:00] VITALS: BP 133/66; PULSE 93; RESP 16; TEMP 36.6; O2SAT 96
[2022-06-11] MEDS: Omeprazole 20 MG CAPSULE.DR PO (06:29)
[2022-06-11] MEDS: Atorvastatin Calcium 40 MG TABLET PO (08:14)
[2022-06-11] MEDS: Aspirin 81 MG TAB.CHEW PO (08:14)
[2022-06-11] MEDS: amLODIPine Besylate 5 MG TABLET PO (08:14)
[2022-06-11] MEDS: Cholecalciferol (Vitamin D3) 25 MCG TABLET PO (08:15)
[2022-06-11] MEDS: risperiDONE 1 MG TABLET PO (08:15)
[2022-06-11] MEDS: Paliperidone Palmitate 234 MG/1.5 ML SYRINGE IM (10:16)
--- NOTE | 2022-06-11 13:42 | HO.PSYCHPN ---
Subjective Subjective Date of Service: 06/11/22 Reason For Visit: SI Subjective Notes: Conditional Voluntary Interim History: The nursing staff reported the patient has been extremely talkative with flight of ideas confused. She took trazodone last night and slept well last night. The social professionals talk with the daughter and the partner and they are willing to pay the long-acting injectable since since the only way that she is compliant with treatment. On interview we discussed options and she agreed to take Invega Sustenna shot. Mental Status Exam Mental Status Exam Patient Appearance: Well Grooomed and Appropriate Patient Orientation: Person and Situation Level of Consciousness: Awake and Alert Patient Behavior: Distractible and Impulsive Mood Description: Elated Affect Description: Labile Patient Cognition Impaired: Yes Ability to Follow Directions: Good Speech Pattern: Rapid Hallucinations: None Delusions: Grandiose Thought Process: Racing and Distracted Thought Content: positive for [place] and positive for Disorganized Judgement: Fair Diagnostics Vital Signs (24Hr): Vital Signs - 24 hr 06/10/22 18:00 06/11/22 06:00 Temperature 97.2 F 97.8 F Pulse Rate 91 93 Respiratory Rate 18 16 Blood Pressure 148/71 H 133/66 Pulse Oximetry 95 96 Oxygen Delivery Method Room Air Room Air Labs 06/05/22 07:50 Medications Medications Current Medications Acetaminophen (Acetaminophen 325 Mg Tablet) 650 mg PO Q6H PRN PRN Reason: Headache/Pain Mild Scale (1-3) Last Admin: 06/06/22 11:02 Dose: 650 mg Al Hydroxide/Mg Hydroxide (Magnesium Hydrox/Alum Hydrox 30 Ml Oral.Susp) 30 ml PO Q6H PRN PRN Reason: Heartburn/Nausea Last Admin: 06/09/22 09:36 Dose: 30 ml Amlodipine Besylate (Amlodipine Besylate 5 Mg Tablet) 5 mg PO DAILY [facility]; Protocol Last Admin: 06/11/22 08:14 Dose: 5 mg Aspirin (Aspirin 81 Mg Tab.Chew) 81 mg PO DAILY [facility] Last Admin: 06/11/22 08:14 Dose: 81 mg Atorvastatin Calcium (Atorvastatin Calcium 40 Mg Tablet) 40 mg PO DAILY [facility] Last Admin: 06/11/22 08:14 Dose: 40 mg Docusate Sodium (Docusate Sodium 100 Mg Capsule) 100 mg PO BID PRN PRN Reason: Constipation Hydroxyzine HCl (Hydroxyzine Hcl 25 Mg Tablet) 25 mg PO Q6H PRN PRN Reason: Anxiety Last Admin: 06/10/22 05:34 Dose: 25 mg Magnesium Hydroxide (Milk Of Magnesia 30 Ml Oral.Susp) 30 ml PO DAILY PRN PRN Reason: Constipation Omeprazole (Omeprazole 20 Mg Capsule.Dr) 20 mg PO DAILY@0630 [facility] Last Admin: 06/11/22 06:29 Dose: 20 mg Oxycodone HCl (Oxycodone Hcl Immed Release 5 Mg Tablet) 5 mg PO Q6H PRN PRN Reason: Pain, Severe (Pain Scale 7-10) Risperidone (Risperidone 0.5 Mg Tablet) 0.5 mg PO BID PRN PRN Reason: Psychosis Last Admin: 06/09/22 18:35 Dose: 0.5 mg Risperidone (Risperidone 1 Mg Tablet) 1 mg PO BEDTIME [facility] Last Admin: 06/10/22 20:40 Dose: 1 mg Risperidone (Risperidone 1 Mg Tablet) 1 mg PO DAILY [facility] Last Admin: 06/11/22 08:15 Dose: 1 mg Trazodone HCl (Trazodone Hcl 50 Mg Tablet) 50 mg PO BEDTIME PRN PRN Reason: Insomnia Last Admin: 06/10/22 20:40 Dose: 50 mg Vitamin D (Cholecalciferol (Vitamin D3) 25 Mcg Tablet) 25 mcg PO DAILY [facility] Last Admin: 06/11/22 08:15 Dose: 25 mcg Allergies Allergies Allergy/AdvReac Type Severity Reaction Status Date / Time Penicillins [PENICILLINS] Allergy Severe HIVES Unverified 06/05/22 15:19 bee pollen [BEE STINGS] Allergy Unknown RASH Unverified 11/09/19 18:41 cortisone [CORTISONE] Allergy Unknown RASH Unverified 11/09/19 18:41 penicillin V Allergy Unknown rash Verified 08/07/19 00:00 Chocolate AdvReac Vomiting Verified 06/05/22 15:19 Benadryl Allergy Mild Vomiting Uncoded 06/05/22 15:19 bees Allergy Unknown swells up Uncoded 08/07/19 00:00 Assessment & Plan Assessment & Plan (1) Bipolar disorder: Status: Acute Code(s): F31.9 - Bipolar disorder, unspecified Assessment and Plan: Patient on Risperdal somewhat euphoric elevated encourage med compliance increase Risperdal (2) Routine history and physical examination of adult: Status: Inactive Code(s): Z00.00 - Encounter for general adult medical examination without abnormal findings Plan the patient is an elderly female with a long history of bipolar disorder with several prior admissions into the hospital for noncompliance. Historically the patient responds very well to Risperdal but she had been noncompliant in the community and decompensated with a manic episode. Plan 1. Gather collateral information. 2. Continue increased of Risperdal up to 1 mg p.o. b.i.d. 3. We will explore the possibility of Invega Sustenna or Risperdal Consta for long-acting injectable in the community. 4. Continue with medical work 5. Invega Sustenna 234 mg IM today June 11 Reason for continued inpatient stay Substantial Risk for: inability to function, rapid decompensation and med/psych decompensation Time Spent With Patient Time: Total time managing care of this patient today _20___ minutes.
--- NOTE | 2022-06-11 17:11 | PC.NURSE ---
Patient received first dose of Invega Sustenna this morning. Patient cooperative with administration.
[2022-06-11 18:00] VITALS: BP 118/60; PULSE 93; RESP 18; TEMP 36.2; O2SAT 98
[2022-06-11] MEDS: traZODone HCL 50 MG TABLET PO (20:44)
[2022-06-12] MEDS: traZODone HCL 50 MG TABLET PO ×2 (01:52→20:22)
[2022-06-12] MEDS: hydrOXYzine HCL 25 MG TABLET PO ×2 (01:52→20:22)
[2022-06-12] MEDS: risperiDONE 1 MG TABLET PO (08:58)
[2022-06-12] MEDS: Atorvastatin Calcium 40 MG TABLET PO (08:58)
[2022-06-12] MEDS: Omeprazole 20 MG CAPSULE.DR PO (08:59)
[2022-06-12] MEDS: Aspirin 81 MG TAB.CHEW PO (08:59)
[2022-06-12] MEDS: Cholecalciferol (Vitamin D3) 25 MCG TABLET PO (08:59)
[2022-06-12] MEDS: amLODIPine Besylate 5 MG TABLET PO (08:59)
[2022-06-12 09:00] VITALS: BP 121/64; PULSE 102; RESP 16; TEMP 36.5; O2SAT 97
[2022-06-12] MEDS: Docusate Sodium 100 MG CAPSULE PO (10:31)
--- NOTE | 2022-06-12 14:17 | P.PNPSI_ITS ---
Subjective Subjective Date of Service: 06/12/22 Reason For Visit: SI Subjective Notes: Conditional Voluntary Interim History: The nursing staff reported the patient had been manic but pleasant. Yesterday she took Invega Sustenna IM as a mood stabilizer. On interview the patient denies new symptoms, she took Zyprexa last night for poor sleep. Mental Status Exam Mental Status Exam Patient Appearance: Well Grooomed and Appropriate Patient Orientation: Person and Situation Level of Consciousness: Appropriate Patient Behavior: Talkative, Restless and Good Eye Contact Mood Description: Elated Affect Description: Labile Patient Cognition Impaired: No Ability to Follow Directions: Good Speech Pattern: Clear and Appropriate Hallucinations: None Delusions: Not Present Thought Process: Racing Thought Content: positive for [place] and positive for Circumstantial Judgement: Fair Diagnostics Vital Signs (24Hr): Vital Signs - 24 hr 06/11/22 18:00 06/12/22 09:00 Temperature 97.2 F 97.7 F Pulse Rate 93 102 H Respiratory Rate 18 16 Blood Pressure 118/60 121/64 Pulse Oximetry 98 97 Oxygen Delivery Method Room Air Room Air Labs 06/05/22 07:50 Medications Medications Current Medications Acetaminophen (Acetaminophen 325 Mg Tablet) 650 mg PO Q6H PRN PRN Reason: Headache/Pain Mild Scale (1-3) Last Admin: 06/06/22 11:02 Dose: 650 mg Al Hydroxide/Mg Hydroxide (Magnesium Hydrox/Alum Hydrox 30 Ml Oral.Susp) 30 ml PO Q6H PRN PRN Reason: Heartburn/Nausea Last Admin: 06/09/22 09:36 Dose: 30 ml Amlodipine Besylate (Amlodipine Besylate 5 Mg Tablet) 5 mg PO DAILY [facility]; Protocol Last Admin: 06/12/22 08:59 Dose: 5 mg Aspirin (Aspirin 81 Mg Tab.Chew) 81 mg PO DAILY [facility] Last Admin: 06/12/22 08:59 Dose: 81 mg Atorvastatin Calcium (Atorvastatin Calcium 40 Mg Tablet) 40 mg PO DAILY [facility] Last Admin: 06/12/22 08:58 Dose: 40 mg Docusate Sodium (Docusate Sodium 100 Mg Capsule) 100 mg PO BID PRN PRN Reason: Constipation Last Admin: 06/12/22 10:31 Dose: 100 mg Hydroxyzine HCl (Hydroxyzine Hcl 25 Mg Tablet) 25 mg PO Q6H PRN PRN Reason: Anxiety Last Admin: 06/12/22 01:52 Dose: 25 mg Magnesium Hydroxide (Milk Of Magnesia 30 Ml Oral.Susp) 30 ml PO DAILY PRN PRN Reason: Constipation Omeprazole (Omeprazole 20 Mg Capsule.Dr) 20 mg PO DAILY@0630 [facility] Last Admin: 06/12/22 08:59 Dose: 20 mg Oxycodone HCl (Oxycodone Hcl Immed Release 5 Mg Tablet) 5 mg PO Q6H PRN PRN Reason: Pain, Severe (Pain Scale 7-10) Paliperidone Palmitate (Paliperidone Palmitate 156 Mg/Ml Syringe) 156 mg IM ONCE ONE Stop: 06/16/22 09:01 Risperidone (Risperidone 0.5 Mg Tablet) 0.5 mg PO BID PRN PRN Reason: Psychosis Last Admin: 06/09/22 18:35 Dose: 0.5 mg Trazodone HCl (Trazodone Hcl 50 Mg Tablet) 50 mg PO BEDTIME PRN PRN Reason: Insomnia Last Admin: 06/12/22 01:52 Dose: 50 mg Vitamin D (Cholecalciferol (Vitamin D3) 25 Mcg Tablet) 25 mcg PO DAILY [facility] Last Admin: 06/12/22 08:59 Dose: 25 mcg Allergies Allergies Allergy/AdvReac Type Severity Reaction Status Date / Time Penicillins [PENICILLINS] Allergy Severe HIVES Unverified 06/05/22 15:19 bee pollen [BEE STINGS] Allergy Unknown RASH Unverified 11/09/19 18:41 cortisone [CORTISONE] Allergy Unknown RASH Unverified 11/09/19 18:41 penicillin V Allergy Unknown rash Verified 08/07/19 00:00 Chocolate AdvReac Vomiting Verified 06/05/22 15:19 Benadryl Allergy Mild Vomiting Uncoded 06/05/22 15:19 bees Allergy Unknown swells up Uncoded 08/07/19 00:00 Assessment & Plan Assessment & Plan (1) Bipolar disorder: Status: Acute Code(s): F31.9 - Bipolar disorder, unspecified Assessment and Plan: Patient on Risperdal somewhat euphoric elevated encourage med compliance increase Risperdal (2) Routine history and physical examination of adult: Status: Inactive Code(s): Z00.00 - Encounter for general adult medical examination without abnormal findings Plan the patient is an elderly female with a long history of bipolar disorder with several prior admissions into the hospital for noncompliance. Historically the patient responds very well to Risperdal but she had been noncompliant in the community and decompensated with a manic episode. Plan 1. Gather collateral information. 2. Continue increased of Risperdal up to 1 mg p.o. b.i.d. 3. We will explore the possibility of Invega Sustenna or Risperdal Consta for long-acting injectable in the community. 4. Continue with medical work 5. Invega Sustenna 234 mg IM on June 11 Reason for continued inpatient stay Substantial Risk for: inability to function, rapid decompensation and med/psych decompensation Time Spent With Patient Time: Total time managing care of this patient today __20__ minutes.
[2022-06-12 18:00] VITALS: BP 117/56; PULSE 89; RESP 18; TEMP 36.6; O2SAT 96
[2022-06-12] MEDS: Acetaminophen 325 MG TABLET 650 MG PO (20:21)
[2022-06-13] MEDS: Omeprazole 20 MG CAPSULE.DR PO (05:38)
[2022-06-13 08:14] VITALS: BP 133/63; PULSE 92; RESP 16; TEMP 36.1; O2SAT 97
--- NOTE | 2022-06-13 08:48 | P.PNPSI_ITS ---
Subjective Subjective Date of Service: 06/13/22 Reason For Visit: SI Subjective Notes: Conditional Voluntary Interim History: The nursing staff reported the patient had been visible in the unit, eating well, she slept with medications. Yesterday she was visited by her son and granddaughter. She has been very energetic hypomanic with fast speech. On interview the patient reported that she is feeling great and she is in agreement of using long-acting injectables instead of p.o.. Mental Status Exam Mental Status Exam Patient Appearance: Well Grooomed and Appropriate Patient Orientation: Person and Situation Level of Consciousness: Awake and Appropriate Patient Behavior: Guarded and Passive Mood Description: Elated Affect Description: Labile Patient Cognition Impaired: Yes Ability to Follow Directions: Good Speech Pattern: Clear Hallucinations: None Delusions: Not Present Thought Process: Linear Thought Content: positive for Circumstantial Judgement: Fair Diagnostics Vital Signs (24Hr): Vital Signs - 24 hr 06/12/22 09:00 06/12/22 18:00 06/13/22 08:14 Temperature 97.7 F 97.8 F 96.9 F Pulse Rate 102 H 89 92 Respiratory Rate 16 18 16 Blood Pressure 121/64 117/56 L 133/63 Pulse Oximetry 97 96 97 Oxygen Delivery Method Room Air Room Air Room Air Labs 06/05/22 07:50 Medications Medications Current Medications Acetaminophen (Acetaminophen 325 Mg Tablet) 650 mg PO Q6H PRN PRN Reason: Headache/Pain Mild Scale (1-3) Last Admin: 06/12/22 20:21 Dose: 650 mg Al Hydroxide/Mg Hydroxide (Magnesium Hydrox/Alum Hydrox 30 Ml Oral.Susp) 30 ml PO Q6H PRN PRN Reason: Heartburn/Nausea Last Admin: 06/09/22 09:36 Dose: 30 ml Amlodipine Besylate (Amlodipine Besylate 5 Mg Tablet) 5 mg PO DAILY [facility]; Protocol Last Admin: 06/12/22 08:59 Dose: 5 mg Aspirin (Aspirin 81 Mg Tab.Chew) 81 mg PO DAILY [facility] Last Admin: 06/12/22 08:59 Dose: 81 mg Atorvastatin Calcium (Atorvastatin Calcium 40 Mg Tablet) 40 mg PO DAILY [facility] Last Admin: 06/12/22 08:58 Dose: 40 mg Docusate Sodium (Docusate Sodium 100 Mg Capsule) 100 mg PO BID PRN PRN Reason: Constipation Last Admin: 04/21/23 10:31 Dose: 100 mg Hydroxyzine HCl (Hydroxyzine Hcl 25 Mg Tablet) 25 mg PO Q6H PRN PRN Reason: Anxiety Last Admin: 06/12/22 20:22 Dose: 25 mg Magnesium Hydroxide (Milk Of Magnesia 30 Ml Oral.Susp) 30 ml PO DAILY PRN PRN Reason: Constipation Omeprazole (Omeprazole 20 Mg Capsule.Dr) 20 mg PO DAILY@0630 [facility] Last Admin: 06/13/22 05:38 Dose: 20 mg Oxycodone HCl (Oxycodone Hcl Immed Release 5 Mg Tablet) 5 mg PO Q6H PRN PRN Reason: Pain, Severe (Pain Scale 7-10) Paliperidone Palmitate (Paliperidone Palmitate 156 Mg/Ml Syringe) 156 mg IM ONCE ONE Stop: 06/16/22 09:01 Risperidone (Risperidone 0.5 Mg Tablet) 0.5 mg PO BID PRN PRN Reason: Psychosis Last Admin: 06/09/22 18:35 Dose: 0.5 mg Trazodone HCl (Trazodone Hcl 50 Mg Tablet) 50 mg PO BEDTIME PRN PRN Reason: Insomnia Last Admin: 06/12/22 20:22 Dose: 50 mg Vitamin D (Cholecalciferol (Vitamin D3) 25 Mcg Tablet) 25 mcg PO DAILY [facility] Last Admin: 06/12/22 08:59 Dose: 25 mcg Allergies Allergies Allergy/AdvReac Type Severity Reaction Status Date / Time Penicillins [PENICILLINS] Allergy Severe HIVES Unverified 06/05/22 15:19 bee pollen [BEE STINGS] Allergy Unknown RASH Unverified 11/09/19 18:41 cortisone [CORTISONE] Allergy Unknown RASH Unverified 11/09/19 18:41 penicillin V Allergy Unknown rash Verified 08/07/19 00:00 Chocolate AdvReac Vomiting Verified 06/05/22 15:19 Benadryl Allergy Mild Vomiting Uncoded 06/05/22 15:19 bees Allergy Unknown swells up Uncoded 08/07/19 00:00 Assessment & Plan Assessment & Plan (1) Bipolar disorder: Status: Acute Code(s): F31.9 - Bipolar disorder, unspecified Assessment and Plan: Patient on Risperdal somewhat euphoric elevated encourage med compliance increase Risperdal (2) Routine history and physical examination of adult: Status: Inactive Code(s): Z00.00 - Encounter for general adult medical examination without abnormal findings Plan the patient is an elderly female with a long history of bipolar disorder with several prior admissions into the hospital for noncompliance. Historically the patient responds very well to Risperdal but she had been noncompliant in the community and decompensated with a manic episode. Plan 1. Gather collateral information. 2. Continue increased of Risperdal up to 1 mg p.o. b.i.d. 3. We will explore the possibility of Invega Sustenna or Risperdal Consta for long-acting injectable in the community. 4. Continue with medical work 5. Invega Sustenna 234 mg IM on June 11. Next dose of Invega Sustenna will be 156 for next week Reason for continued inpatient stay Substantial Risk for: inability to function, rapid decompensation and med/psych decompensation Time Spent With Patient Time: Total time managing care of this patient today __20__ minutes.
[2022-06-13] MEDS: Cholecalciferol (Vitamin D3) 25 MCG TABLET PO (08:53)
[2022-06-13] MEDS: Aspirin 81 MG TAB.CHEW PO (08:53)
[2022-06-13] MEDS: amLODIPine Besylate 5 MG TABLET PO (08:54)
[2022-06-13] MEDS: Atorvastatin Calcium 40 MG TABLET PO (08:54)
[2022-06-13 19:09] VITALS: BP 155/76; PULSE 93; RESP 16; TEMP 36.7; O2SAT 92
[2022-06-13] MEDS: traZODone HCL 50 MG TABLET PO (20:27)
[2022-06-14] MEDS: Omeprazole 20 MG CAPSULE.DR PO (06:13)
[2022-06-14 07:30] VITALS: BP 128/67; PULSE 86; RESP 16; TEMP 35.8; O2SAT 16
--- NOTE | 2022-06-14 08:58 | HO.PSYCHPN ---
Subjective Subjective Date of Service: 06/14/22 Reason For Visit: SI Subjective Notes: Conditional Voluntary Interim History: The nursing staff reported the patient slept better last night, she denies issues. She had been compliant with treatment. On interview the patient still manic but more stable. No behavioral problems in the unit. Mental Status Exam Mental Status Exam Patient Appearance: Well Grooomed and Appropriate Patient Orientation: Person, Place and Situation Level of Consciousness: Awake and Appropriate Patient Behavior: Appropriate and Cooperative Mood Description: Calm and Elated Affect Description: Labile Patient Cognition Impaired: Yes Ability to Follow Directions: Good Speech Pattern: Rapid and Animated Hallucinations: None Delusions: Not Present Thought Process: Racing Thought Content: positive for [place] and positive for Circumstantial Judgement: Fair Diagnostics Vital Signs (24Hr): Vital Signs - 24 hr 06/13/22 19:09 06/14/22 07:30 Temperature 98.0 F 96.4 F L Pulse Rate 93 86 Respiratory Rate 16 16 Blood Pressure 155/76 H 128/67 Pulse Oximetry 92 16 L Oxygen Delivery Method Room Air Room Air Labs 06/05/22 07:50 Medications Medications Current Medications Acetaminophen (Acetaminophen 325 Mg Tablet) 650 mg PO Q6H PRN PRN Reason: Headache/Pain Mild Scale (1-3) Last Admin: 06/12/22 20:21 Dose: 650 mg Al Hydroxide/Mg Hydroxide (Magnesium Hydrox/Alum Hydrox 30 Ml Oral.Susp) 30 ml PO Q6H PRN PRN Reason: Heartburn/Nausea Last Admin: 06/09/22 09:36 Dose: 30 ml Amlodipine Besylate (Amlodipine Besylate 5 Mg Tablet) 5 mg PO DAILY [facility]; Protocol Last Admin: 06/13/22 08:54 Dose: 5 mg Aspirin (Aspirin 81 Mg Tab.Chew) 81 mg PO DAILY [facility] Last Admin: 06/13/22 08:53 Dose: 81 mg Atorvastatin Calcium (Atorvastatin Calcium 40 Mg Tablet) 40 mg PO DAILY [facility] Last Admin: 06/13/22 08:54 Dose: 40 mg Docusate Sodium (Docusate Sodium 100 Mg Capsule) 100 mg PO BID PRN PRN Reason: Constipation Last Admin: 06/12/22 10:31 Dose: 100 mg Hydroxyzine HCl (Hydroxyzine Hcl 25 Mg Tablet) 25 mg PO Q6H PRN PRN Reason: Anxiety Last Admin: 06/12/22 20:22 Dose: 25 mg Magnesium Hydroxide (Milk Of Magnesia 30 Ml Oral.Susp) 30 ml PO DAILY PRN PRN Reason: Constipation Omeprazole (Omeprazole 20 Mg Capsule.Dr) 20 mg PO DAILY@0630 [facility] Last Admin: 06/14/22 06:13 Dose: 20 mg Paliperidone Palmitate (Paliperidone Palmitate 156 Mg/Ml Syringe) 156 mg IM ONCE ONE Stop: 06/16/22 09:01 Risperidone (Risperidone 0.5 Mg Tablet) 0.5 mg PO BID PRN PRN Reason: Psychosis Last Admin: 06/09/22 18:35 Dose: 0.5 mg Trazodone HCl (Trazodone Hcl 50 Mg Tablet) 50 mg PO BEDTIME PRN PRN Reason: Insomnia Last Admin: 06/13/22 20:27 Dose: 50 mg Vitamin D (Cholecalciferol (Vitamin D3) 25 Mcg Tablet) 25 mcg PO DAILY [facility] Last Admin: 06/13/22 08:53 Dose: 25 mcg Allergies Allergies Allergy/AdvReac Type Severity Reaction Status Date / Time Penicillins [PENICILLINS] Allergy Severe HIVES Unverified 06/05/22 15:19 bee pollen [BEE STINGS] Allergy Unknown RASH Unverified 11/09/19 18:41 cortisone [CORTISONE] Allergy Unknown RASH Unverified 11/09/19 18:41 penicillin V Allergy Unknown rash Verified 08/07/19 00:00 Chocolate AdvReac Vomiting Verified 06/05/22 15:19 Benadryl Allergy Mild Vomiting Uncoded 06/05/22 15:19 bees Allergy Unknown swells up Uncoded 08/07/19 00:00 Assessment & Plan Assessment & Plan (1) Bipolar disorder: Status: Acute Code(s): F31.9 - Bipolar disorder, unspecified Assessment and Plan: Patient on Risperdal somewhat euphoric elevated encourage med compliance increase Risperdal (2) Routine history and physical examination of adult: Status: Inactive Code(s): Z00.00 - Encounter for general adult medical examination without abnormal findings Plan the patient is an elderly female with a long history of bipolar disorder with several prior admissions into the hospital for noncompliance. Historically the patient responds very well to Risperdal but she had been noncompliant in the community and decompensated with a manic episode. Plan 1. Gather collateral information. 2. Continue increased of Risperdal up to 1 mg p.o. b.i.d. 3. We will explore the possibility of Invega Sustenna or Risperdal Consta for long-acting injectable in the community. 4. Continue with medical work 5. Invega Sustenna 234 mg IM on June 11. Next dose of Invega Sustenna will be 156 for next week Reason for continued inpatient stay Substantial Risk for: inability to function, rapid decompensation and med/psych decompensation Time Spent With Patient Time: Total time managing care of this patient today __20__ minutes.
[2022-06-14] MEDS: Atorvastatin Calcium 40 MG TABLET PO (09:09)
[2022-06-14] MEDS: Aspirin 81 MG TAB.CHEW PO (09:09)
[2022-06-14] MEDS: Cholecalciferol (Vitamin D3) 25 MCG TABLET PO (09:09)
[2022-06-14] MEDS: amLODIPine Besylate 5 MG TABLET PO (09:09)
[2022-06-14] MEDS: Acetaminophen 325 MG TABLET 650 MG PO ×2 (12:09→20:43)
[2022-06-14] MEDS: hydrOXYzine HCL 25 MG TABLET PO ×2 (15:00→20:44)
[2022-06-14 18:00] VITALS: BP 127/68; PULSE 91; RESP 18; TEMP 36.3; O2SAT 96
[2022-06-14] MEDS: Docusate Sodium 100 MG CAPSULE PO (20:43)
[2022-06-14] MEDS: traZODone HCL 50 MG TABLET PO (20:43)
[2022-06-15] MEDS: hydrOXYzine HCL 25 MG TABLET PO (02:47)
[2022-06-15] MEDS: traZODone HCL 50 MG TABLET PO (02:48)
[2022-06-15] MEDS: Omeprazole 20 MG CAPSULE.DR PO (06:20)
[2022-06-15 10:45] VITALS: BP 126/70; PULSE 75; RESP 18; TEMP 36.6; O2SAT 96
[2022-06-15] MEDS: Atorvastatin Calcium 40 MG TABLET PO (10:54)
[2022-06-15] MEDS: Aspirin 81 MG TAB.CHEW PO (10:54)
[2022-06-15] MEDS: Cholecalciferol (Vitamin D3) 25 MCG TABLET PO (10:54)
[2022-06-15] MEDS: amLODIPine Besylate 5 MG TABLET PO (10:54)
[2022-06-15] MEDS: Milk of Magnesia 30 ML ORAL.SUSP PO (10:57)
--- NOTE | 2022-06-15 12:50 | HO.PSYCHPN ---
Subjective Subjective Date of Service: 06/15/22 Reason For Visit: SI Subjective Notes: Conditional Voluntary Interim History: The nursing staff reported the patient had been manic, tangential but easily redirectable. On interview the patient showed fast speech but no behavioral disturbances. Mental Status Exam Mental Status Exam Patient Appearance: Well Grooomed and Appropriate Patient Orientation: Person and Situation Level of Consciousness: Awake and Appropriate Patient Behavior: Guarded and Passive Mood Description: Calm and Constricted Affect Description: Constricted Patient Cognition Impaired: Yes Ability to Follow Directions: Good Speech Pattern: Clear Hallucinations: None Delusions: Not Present Thought Process: Racing and Distracted Thought Content: positive for [place] and positive for Circumstantial Judgement: Fair Diagnostics Vital Signs (24Hr): Vital Signs - 24 hr 06/14/22 18:00 06/15/22 10:45 Temperature 97.3 F 97.8 F Pulse Rate 91 75 Respiratory Rate 18 18 Blood Pressure 127/68 126/70 Pulse Oximetry 96 96 Oxygen Delivery Method Room Air Room Air Labs 06/05/22 07:50 Medications Medications Current Medications Acetaminophen (Acetaminophen 325 Mg Tablet) 650 mg PO Q6H PRN PRN Reason: Headache/Pain Mild Scale (1-3) Last Admin: 06/14/22 20:43 Dose: 650 mg Al Hydroxide/Mg Hydroxide (Magnesium Hydrox/Alum Hydrox 30 Ml Oral.Susp) 30 ml PO Q6H PRN PRN Reason: Heartburn/Nausea Last Admin: 06/09/22 09:36 Dose: 30 ml Amlodipine Besylate (Amlodipine Besylate 5 Mg Tablet) 5 mg PO DAILY [facility]; Protocol Last Admin: 06/15/22 10:54 Dose: 5 mg Aspirin (Aspirin 81 Mg Tab.Chew) 81 mg PO DAILY [facility] Last Admin: 06/15/22 10:54 Dose: 81 mg Atorvastatin Calcium (Atorvastatin Calcium 40 Mg Tablet) 40 mg PO DAILY [facility] Last Admin: 06/15/22 10:54 Dose: 40 mg Docusate Sodium (Docusate Sodium 100 Mg Capsule) 100 mg PO BID PRN PRN Reason: Constipation Last Admin: 06/14/22 20:43 Dose: 100 mg Hydroxyzine HCl (Hydroxyzine Hcl 25 Mg Tablet) 25 mg PO Q6H PRN PRN Reason: Anxiety Last Admin: 06/15/22 02:47 Dose: 25 mg Magnesium Hydroxide (Milk Of Magnesia 30 Ml Oral.Susp) 30 ml PO DAILY PRN PRN Reason: Constipation Last Admin: 06/15/22 10:57 Dose: 30 ml Omeprazole (Omeprazole 20 Mg Capsule.Dr) 20 mg PO DAILY@0630 [facility] Last Admin: 06/15/22 06:20 Dose: 20 mg Paliperidone Palmitate (Paliperidone Palmitate 156 Mg/Ml Syringe) 156 mg IM ONCE ONE Stop: 06/16/22 09:01 Risperidone (Risperidone 0.5 Mg Tablet) 0.5 mg PO BID PRN PRN Reason: Psychosis Last Admin: 06/09/22 18:35 Dose: 0.5 mg Trazodone HCl (Trazodone Hcl 50 Mg Tablet) 50 mg PO BEDTIME PRN PRN Reason: Insomnia Last Admin: 06/15/22 02:48 Dose: 50 mg Vitamin D (Cholecalciferol (Vitamin D3) 25 Mcg Tablet) 25 mcg PO DAILY [facility] Last Admin: 06/15/22 10:54 Dose: 25 mcg Allergies Allergies Allergy/AdvReac Type Severity Reaction Status Date / Time Penicillins [PENICILLINS] Allergy Severe HIVES Unverified 06/05/22 15:19 bee pollen [BEE STINGS] Allergy Unknown RASH Unverified 11/09/19 18:41 cortisone [CORTISONE] Allergy Unknown RASH Unverified 11/09/19 18:41 penicillin V Allergy Unknown rash Verified 08/07/19 00:00 Chocolate AdvReac Vomiting Verified 06/05/22 15:19 Benadryl Allergy Mild Vomiting Uncoded 06/05/22 15:19 bees Allergy Unknown swells up Uncoded 08/07/19 00:00 Assessment & Plan Assessment & Plan (1) Bipolar disorder: Status: Acute Code(s): F31.9 - Bipolar disorder, unspecified Assessment and Plan: Patient on Risperdal somewhat euphoric elevated encourage med compliance increase Risperdal (2) Routine history and physical examination of adult: Status: Inactive Code(s): Z00.00 - Encounter for general adult medical examination without abnormal findings Plan the patient is an elderly female with a long history of bipolar disorder with several prior admissions into the hospital for noncompliance. Historically the patient responds very well to Risperdal but she had been noncompliant in the community and decompensated with a manic episode. Plan 1. Gather collateral information. 2. Continue increased of Risperdal up to 1 mg p.o. b.i.d. 3. We will explore the possibility of Invega Sustenna or Risperdal Consta for long-acting injectable in the community. 4. Continue with medical work 5. Invega Sustenna 234 mg IM on June 11. Next dose of Invega Sustenna will be 156 for next Wednesday Reason for continued inpatient stay Substantial Risk for: inability to function, rapid decompensation and med/psych decompensation Time Spent With Patient Time: Total time managing care of this patient today __20__ minutes.
[2022-06-15 18:00] VITALS: BP 124/58; PULSE 75; RESP 18; TEMP 36.8; O2SAT 96
[2022-06-16] MEDS: Omeprazole 20 MG CAPSULE.DR PO (05:34)
[2022-06-16 07:30] VITALS: BP 151/77; PULSE 89; RESP 17; TEMP 36.7; O2SAT 98
[2022-06-16] MEDS: amLODIPine Besylate 5 MG TABLET PO (08:49)
[2022-06-16] MEDS: Aspirin 81 MG TAB.CHEW PO (08:49)
[2022-06-16] MEDS: Atorvastatin Calcium 40 MG TABLET PO (08:49)
[2022-06-16] MEDS: Paliperidone Palmitate 156 MG/ML SYRINGE IM (08:49)
[2022-06-16] MEDS: Cholecalciferol (Vitamin D3) 25 MCG TABLET PO (08:50)
--- NOTE | 2022-06-16 13:50 | P.PNPSI_ITS ---
Subjective Subjective Date of Service: 06/16/22 Reason For Visit: SI Subjective Notes: Conditional Voluntary Interim History: The nursing staff reported the patient has being manic but easily redirectable. She slept well last night. The occupational therapy reported that she was 1st time in groups very appropriate. On interview the patient denies new symptoms she is fully aware that she needs her 2nd shot tomorrow of Invega Sustenna. Mental Status Exam Mental Status Exam Patient Appearance: Well Grooomed and Appropriate Patient Orientation: Person, Place and Situation Level of Consciousness: Awake and Appropriate Patient Behavior: Talkative Mood Description: Calm Affect Description: Labile Patient Cognition Impaired: Yes Ability to Follow Directions: Good Speech Pattern: Clear and Rapid Hallucinations: None Delusions: Grandiose Thought Content: positive for Logical Judgement: Fair Diagnostics Vital Signs (24Hr): Vital Signs - 24 hr 06/15/22 18:00 06/16/22 07:30 Temperature 98.3 F 98.0 F Pulse Rate 75 89 Respiratory Rate 18 17 Blood Pressure 124/58 L 151/77 H Pulse Oximetry 96 98 Oxygen Delivery Method Room Air Room Air Labs 06/05/22 07:50 Medications Medications Current Medications Acetaminophen (Acetaminophen 325 Mg Tablet) 650 mg PO Q6H PRN PRN Reason: Headache/Pain Mild Scale (1-3) Last Admin: 06/14/22 20:43 Dose: 650 mg Al Hydroxide/Mg Hydroxide (Magnesium Hydrox/Alum Hydrox 30 Ml Oral.Susp) 30 ml PO Q6H PRN PRN Reason: Heartburn/Nausea Last Admin: 06/09/22 09:36 Dose: 30 ml Amlodipine Besylate (Amlodipine Besylate 5 Mg Tablet) 5 mg PO DAILY [facility]; Protocol Last Admin: 06/16/22 08:49 Dose: 5 mg Aspirin (Aspirin 81 Mg Tab.Chew) 81 mg PO DAILY [facility] Last Admin: 06/16/22 08:49 Dose: 81 mg Atorvastatin Calcium (Atorvastatin Calcium 40 Mg Tablet) 40 mg PO DAILY [facility] Last Admin: 06/16/22 08:49 Dose: 40 mg Docusate Sodium (Docusate Sodium 100 Mg Capsule) 100 mg PO BID PRN PRN Reason: Constipation Last Admin: 06/14/22 20:43 Dose: 100 mg Hydroxyzine HCl (Hydroxyzine Hcl 25 Mg Tablet) 25 mg PO Q6H PRN PRN Reason: Anxiety Last Admin: 06/15/22 02:47 Dose: 25 mg Magnesium Hydroxide (Milk Of Magnesia 30 Ml Oral.Susp) 30 ml PO DAILY PRN PRN Reason: Constipation Last Admin: 06/15/22 10:57 Dose: 30 ml Omeprazole (Omeprazole 20 Mg Capsule.Dr) 20 mg PO DAILY@0630 [facility] Last Admin: 06/16/22 05:34 Dose: 20 mg Risperidone (Risperidone 0.5 Mg Tablet) 0.5 mg PO BID PRN PRN Reason: Psychosis Last Admin: 06/09/22 18:35 Dose: 0.5 mg Trazodone HCl (Trazodone Hcl 50 Mg Tablet) 50 mg PO BEDTIME PRN PRN Reason: Insomnia Last Admin: 06/15/22 02:48 Dose: 50 mg Vitamin D (Cholecalciferol (Vitamin D3) 25 Mcg Tablet) 25 mcg PO DAILY [facility] Last Admin: 06/16/22 08:50 Dose: 25 mcg Allergies Allergies Allergy/AdvReac Type Severity Reaction Status Date / Time Penicillins [PENICILLINS] Allergy Severe HIVES Unverified 06/05/22 15:19 bee pollen [BEE STINGS] Allergy Unknown RASH Unverified 11/09/19 18:41 cortisone [CORTISONE] Allergy Unknown RASH Unverified 11/09/19 18:41 penicillin V Allergy Unknown rash Verified 08/07/19 00:00 Chocolate AdvReac Vomiting Verified 06/05/22 15:19 Benadryl Allergy Mild Vomiting Uncoded 06/05/22 15:19 bees Allergy Unknown swells up Uncoded 08/07/19 00:00 Assessment & Plan Assessment & Plan (1) Bipolar disorder: Status: Acute Code(s): F31.9 - Bipolar disorder, unspecified Assessment and Plan: Patient on Risperdal somewhat euphoric elevated encourage med compliance increase Risperdal (2) Routine history and physical examination of adult: Status: Inactive Code(s): Z00.00 - Encounter for general adult medical examination without abnormal findings Plan the patient is an elderly female with a long history of bipolar disorder with several prior admissions into the hospital for noncompliance. Historically the patient responds very well to Risperdal but she had been noncompliant in the community and decompensated with a manic episode. Plan 1. Gather collateral information. 2. Continue increased of Risperdal up to 1 mg p.o. b.i.d. 3. We will explore the possibility of Invega Sustenna or Risperdal Consta for long-acting injectable in the community. 4. Continue with medical work 5. Invega Sustenna 234 mg IM on June 11. Next dose of Invega Sustenna will be 156 for next Wednesday Reason for continued inpatient stay Substantial Risk for: inability to function, rapid decompensation and med/psych decompensation Time Spent With Patient Time: Total time managing care of this patient today __20__ minutes.
[2022-06-16] MEDS: Acetaminophen 325 MG TABLET 650 MG PO (14:49)
[2022-06-16 18:00] VITALS: BP 130/59; PULSE 94; RESP 18; TEMP 36.6; O2SAT 96
[2022-06-17] MEDS: Acetaminophen 325 MG TABLET 650 MG PO ×3 (04:13→20:52)
[2022-06-17] MEDS: Omeprazole 20 MG CAPSULE.DR PO (06:12)
[2022-06-17 07:30] VITALS: BP 137/62; PULSE 85; RESP 18; TEMP 36; O2SAT 96
--- NOTE | 2022-06-17 08:56 | HO.PSYCHPN ---
Subjective Subjective Date of Service: 06/17/22 Reason For Visit: SI Subjective Notes: Conditional Voluntary Interim History: The nursing staff reported the patient has being manic but easily redirectable. Pt expansive on unit pressured Medication Compliance: Yes Mental Status Exam Mental Status Exam Patient Appearance: Well Grooomed and Appropriate Patient Orientation: Person, Place and Situation Level of Consciousness: Awake and Appropriate Patient Behavior: Talkative Mood Description: Calm Affect Description: Labile Patient Cognition Impaired: Yes Ability to Follow Directions: Good Speech Pattern: Clear and Rapid Hallucinations: None Delusions: Grandiose Thought Content: positive for Logical Judgement: Fair Diagnostics Vital Signs (24Hr): Vital Signs - 24 hr 06/16/22 18:00 Temperature 98 F Pulse Rate 94 Respiratory Rate 18 Blood Pressure 130/59 L Pulse Oximetry 96 Oxygen Delivery Method Room Air Labs 06/05/22 07:50 Medications Medications Current Medications Acetaminophen (Acetaminophen 325 Mg Tablet) 650 mg PO Q6H PRN PRN Reason: Headache/Pain Mild Scale (1-3) Last Admin: 06/17/22 04:13 Dose: 650 mg Al Hydroxide/Mg Hydroxide (Magnesium Hydrox/Alum Hydrox 30 Ml Oral.Susp) 30 ml PO Q6H PRN PRN Reason: Heartburn/Nausea Last Admin: 06/09/22 09:36 Dose: 30 ml Amlodipine Besylate (Amlodipine Besylate 5 Mg Tablet) 5 mg PO DAILY [facility]; Protocol Last Admin: 06/16/22 08:49 Dose: 5 mg Aspirin (Aspirin 81 Mg Tab.Chew) 81 mg PO DAILY [facility] Last Admin: 06/16/22 08:49 Dose: 81 mg Atorvastatin Calcium (Atorvastatin Calcium 40 Mg Tablet) 40 mg PO DAILY [facility] Last Admin: 06/16/22 08:49 Dose: 40 mg Docusate Sodium (Docusate Sodium 100 Mg Capsule) 100 mg PO BID PRN PRN Reason: Constipation Last Admin: 06/14/22 20:43 Dose: 100 mg Hydroxyzine HCl (Hydroxyzine Hcl 25 Mg Tablet) 25 mg PO Q6H PRN PRN Reason: Anxiety Last Admin: 06/15/22 02:47 Dose: 25 mg Magnesium Hydroxide (Milk Of Magnesia 30 Ml Oral.Susp) 30 ml PO DAILY PRN PRN Reason: Constipation Last Admin: 06/15/22 10:57 Dose: 30 ml Omeprazole (Omeprazole 20 Mg Capsule.Dr) 20 mg PO DAILY@0630 [facility] Last Admin: 06/17/22 06:12 Dose: 20 mg Risperidone (Risperidone 0.5 Mg Tablet) 0.5 mg PO BID PRN PRN Reason: Psychosis Last Admin: 06/09/22 18:35 Dose: 0.5 mg Trazodone HCl (Trazodone Hcl 50 Mg Tablet) 50 mg PO BEDTIME PRN PRN Reason: Insomnia Last Admin: 06/15/22 02:48 Dose: 50 mg Vitamin D (Cholecalciferol (Vitamin D3) 25 Mcg Tablet) 25 mcg PO DAILY [facility] Last Admin: 06/16/22 08:50 Dose: 25 mcg Allergies Allergies Allergy/AdvReac Type Severity Reaction Status Date / Time Penicillins [PENICILLINS] Allergy Severe HIVES Unverified 06/05/22 15:19 bee pollen [BEE STINGS] Allergy Unknown RASH Unverified 11/09/19 18:41 cortisone [CORTISONE] Allergy Unknown RASH Unverified 11/09/19 18:41 penicillin V Allergy Unknown rash Verified 08/07/19 00:00 Chocolate AdvReac Vomiting Verified 06/05/22 15:19 Benadryl Allergy Mild Vomiting Uncoded 06/05/22 15:19 bees Allergy Unknown swells up Uncoded 08/07/19 00:00 Assessment & Plan Assessment & Plan (1) Bipolar disorder: Status: Acute Code(s): F31.9 - Bipolar disorder, unspecified Assessment and Plan: Patient on Risperdal somewhat euphoric elevated encourage med compliance increase Risperdal (2) Routine history and physical examination of adult: Status: Inactive Code(s): Z00.00 - Encounter for general adult medical examination without abnormal findings Plan the patient is an elderly female with a long history of bipolar disorder with several prior admissions into the hospital for noncompliance. Historically the patient responds very well to Risperdal but she had been noncompliant in the community and decompensated with a manic episode. Plan 1. Gather collateral information. 2. Continue increased of Risperdal up to 1 mg p.o. b.i.d. 3. We will explore the possibility of Invega Sustenna or Risperdal Consta for long-acting injectable in the community. 4. Continue with medical work 5. Invega Sustenna 234 mg IM on June 11. Next dose of Invega Sustenna will be 156 for next Wednesday06/17/22 Pt gradually improving remains manic Reason for continued inpatient stay Substantial Risk for: inability to function and rapid decompensation Time Spent With Patient Time: Total time managing care of this patient today ____ minutes.
[2022-06-17] MEDS: amLODIPine Besylate 5 MG TABLET PO (09:12)
[2022-06-17] MEDS: Aspirin 81 MG TAB.CHEW PO (09:12)
[2022-06-17] MEDS: Atorvastatin Calcium 40 MG TABLET PO (09:12)
[2022-06-17] MEDS: Cholecalciferol (Vitamin D3) 25 MCG TABLET PO (09:12)
[2022-06-17 18:00] VITALS: BP 147/65; PULSE 78; RESP 18; TEMP 36.1; O2SAT 97
[2022-06-17] MEDS: traZODone HCL 50 MG TABLET PO (20:52)
[2022-06-18] MEDS: Omeprazole 20 MG CAPSULE.DR PO (05:47)
[2022-06-18] MEDS: Acetaminophen 325 MG TABLET 650 MG PO (06:13)
[2022-06-18 08:30] VITALS: BP 116/57; PULSE 83; RESP 18; TEMP 36.1; O2SAT 94
[2022-06-18] MEDS: Cholecalciferol (Vitamin D3) 25 MCG TABLET PO (09:17)
[2022-06-18] MEDS: Aspirin 81 MG TAB.CHEW PO (09:17)
[2022-06-18] MEDS: Atorvastatin Calcium 40 MG TABLET PO (09:18)
[2022-06-18] MEDS: amLODIPine Besylate 5 MG TABLET PO (09:19)
--- NOTE | 2022-06-18 11:06 | P.PNPSI_ITS ---
Subjective Subjective Date of Service: 06/18/22 Reason For Visit: SI Subjective Notes: Conditional Voluntary Interim History: The nursing staff reported the patient to her Invega Sustenna 156 mg yesterday with no problems. She was bright social years she denies depression or anxiety but she looks slightly hypomanic. On interview the patient denies new symptoms, no side effects. We discussed the case with the team and we will discharge her pretty soon most likely early next week when her symptoms improved and Invega Sustenna is at a therapeutic level. Mental Status Exam Mental Status Exam Patient Appearance: Well Grooomed and Appropriate Patient Orientation: Person and Situation Level of Consciousness: Awake and Appropriate Patient Behavior: Appropriate and Talkative Mood Description: Elated Affect Description: Labile Patient Cognition Impaired: Yes Ability to Follow Directions: Good Speech Pattern: Clear Hallucinations: None Delusions: Not Present Thought Process: Racing and Distracted Thought Content: positive for [place] and positive for Poverty of Content Judgement: Fair Diagnostics Vital Signs (24Hr): Vital Signs - 24 hr 06/17/22 18:00 Temperature 96.9 F Pulse Rate 78 Respiratory Rate 18 Blood Pressure 147/65 H Pulse Oximetry 97 Oxygen Delivery Method Room Air Labs 06/05/22 07:50 Medications Medications Current Medications Acetaminophen (Acetaminophen 325 Mg Tablet) 650 mg PO Q6H PRN PRN Reason: Headache/Pain Mild Scale (1-3) Last Admin: 06/18/22 06:13 Dose: 650 mg Al Hydroxide/Mg Hydroxide (Magnesium Hydrox/Alum Hydrox 30 Ml Oral.Susp) 30 ml PO Q6H PRN PRN Reason: Heartburn/Nausea Last Admin: 06/09/22 09:36 Dose: 30 ml Amlodipine Besylate (Amlodipine Besylate 5 Mg Tablet) 5 mg PO DAILY [facility]; Protocol Last Admin: 06/18/22 09:19 Dose: 5 mg Aspirin (Aspirin 81 Mg Tab.Chew) 81 mg PO DAILY [facility] Last Admin: 06/18/22 09:17 Dose: 81 mg Atorvastatin Calcium (Atorvastatin Calcium 40 Mg Tablet) 40 mg PO DAILY [facility] Last Admin: 06/18/22 09:18 Dose: 40 mg Docusate Sodium (Docusate Sodium 100 Mg Capsule) 100 mg PO BID PRN PRN Reason: Constipation Last Admin: 06/14/22 20:43 Dose: 100 mg Hydroxyzine HCl (Hydroxyzine Hcl 25 Mg Tablet) 25 mg PO Q6H PRN PRN Reason: Anxiety Last Admin: 06/15/22 02:47 Dose: 25 mg Magnesium Hydroxide (Milk Of Magnesia 30 Ml Oral.Susp) 30 ml PO DAILY PRN PRN Reason: Constipation Last Admin: 06/15/22 10:57 Dose: 30 ml Omeprazole (Omeprazole 20 Mg Capsule.Dr) 20 mg PO DAILY@0630 [facility] Last Admin: 06/18/22 05:47 Dose: 20 mg Risperidone (Risperidone 0.5 Mg Tablet) 0.5 mg PO BID PRN PRN Reason: Psychosis Last Admin: 06/09/22 18:35 Dose: 0.5 mg Trazodone HCl (Trazodone Hcl 50 Mg Tablet) 50 mg PO BEDTIME PRN PRN Reason: Insomnia Last Admin: 06/17/22 20:52 Dose: 50 mg Vitamin D (Cholecalciferol (Vitamin D3) 25 Mcg Tablet) 25 mcg PO DAILY [facility] Last Admin: 06/18/22 09:17 Dose: 25 mcg Allergies Allergies Allergy/AdvReac Type Severity Reaction Status Date / Time Penicillins [PENICILLINS] Allergy Severe HIVES Unverified 06/05/22 15:19 bee pollen [BEE STINGS] Allergy Unknown RASH Unverified 11/09/19 18:41 cortisone [CORTISONE] Allergy Unknown RASH Unverified 11/09/19 18:41 penicillin V Allergy Unknown rash Verified 08/07/19 00:00 Chocolate AdvReac Vomiting Verified 06/05/22 15:19 Benadryl Allergy Mild Vomiting Uncoded 06/05/22 15:19 bees Allergy Unknown swells up Uncoded 08/07/19 00:00 Assessment & Plan Assessment & Plan (1) Bipolar disorder: Status: Acute Code(s): F31.9 - Bipolar disorder, unspecified Assessment and Plan: Patient on Risperdal somewhat euphoric elevated encourage med compliance increase Risperdal (2) Routine history and physical examination of adult: Status: Inactive Code(s): Z00.00 - Encounter for general adult medical examination without abnormal findings Plan the patient is an elderly female with a long history of bipolar disorder with several prior admissions into the hospital for noncompliance. Historically the patient responds very well to Risperdal but she had been noncompliant in the community and decompensated with a manic episode. Plan 1. Gather collateral information. 2. Continue increased of Risperdal up to 1 mg p.o. b.i.d. Risperdal was discontinued the soon as Invega Sustenna was started 3. We will explore the possibility of Invega Sustenna or Risperdal Consta for long-acting injectable in the community. Apparently, her insurance does not cover long-acting injectables but her son is willing to pay for it 4. Continue with medical work 5. Invega Sustenna 234 mg IM on June 11. Next dose of Invega Sustenna will be 156 for next Wednesday on June 17. Reason for continued inpatient stay Substantial Risk for: inability to function, rapid decompensation and med/psych decompensation Time Spent With Patient Time: Total time managing care of this patient today __20__ minutes.
[2022-06-18 13:15] VITALS: BMI 27.4
[2022-06-18 18:00] VITALS: BP 149/66; PULSE 84; RESP 18; TEMP 36.6; O2SAT 94
[2022-06-19] MEDS: Omeprazole 20 MG CAPSULE.DR PO (04:30)
[2022-06-19 08:00] VITALS: BP 128/72; PULSE 91; RESP 18; TEMP 35.9; O2SAT 97
[2022-06-19] MEDS: Aspirin 81 MG TAB.CHEW PO (08:11)
[2022-06-19] MEDS: amLODIPine Besylate 5 MG TABLET PO (08:12)
[2022-06-19] MEDS: Atorvastatin Calcium 40 MG TABLET PO (08:12)
[2022-06-19] MEDS: Cholecalciferol (Vitamin D3) 25 MCG TABLET PO (08:13)
--- NOTE | 2022-06-19 08:56 | P.PNPSI_ITS ---
Subjective Subjective Date of Service: 06/19/22 Reason For Visit: SI Subjective Notes: Conditional Voluntary Interim History: The nursing staff reported the patient slept 6 hours, she was cooperative and pleasant. The occupational therapist showed that she was less manic but still some symptoms. The social science teacher reported that we have a family meeting next Wednesday for discharge planning. On interview the patient denies new symptoms no side effects with the current medication. Mental Status Exam Mental Status Exam Patient Appearance: Well Grooomed and Appropriate Patient Orientation: Person and Situation Level of Consciousness: Awake and Appropriate Patient Behavior: Guarded and Passive Mood Description: Withdrawn Affect Description: Constricted Ability to Follow Directions: Good Speech Pattern: Clear Hallucinations: None Delusions: Not Present Thought Process: Racing and Distracted Thought Content: positive for [place] and positive for Circumstantial Judgement: Fair Diagnostics Vital Signs (24Hr): Vital Signs - 24 hr 06/18/22 18:00 06/19/22 08:00 Temperature 98 F 96.6 F L Pulse Rate 84 91 Respiratory Rate 18 18 Blood Pressure 149/66 H 128/72 Pulse Oximetry 94 97 Oxygen Delivery Method Room Air Room Air BMI result Body Mass Index 27.4 Labs 06/05/22 07:50 Medications Medications Current Medications Acetaminophen (Acetaminophen 325 Mg Tablet) 650 mg PO Q6H PRN PRN Reason: Headache/Pain Mild Scale (1-3) Last Admin: 06/18/22 06:13 Dose: 650 mg Al Hydroxide/Mg Hydroxide (Magnesium Hydrox/Alum Hydrox 30 Ml Oral.Susp) 30 ml PO Q6H PRN PRN Reason: Heartburn/Nausea Last Admin: 06/09/22 09:36 Dose: 30 ml Amlodipine Besylate (Amlodipine Besylate 5 Mg Tablet) 5 mg PO DAILY [facility]; Protocol Last Admin: 06/19/22 08:12 Dose: 5 mg Aspirin (Aspirin 81 Mg Tab.Chew) 81 mg PO DAILY [facility] Last Admin: 06/19/22 08:11 Dose: 81 mg Atorvastatin Calcium (Atorvastatin Calcium 40 Mg Tablet) 40 mg PO DAILY [facility] Last Admin: 06/19/22 08:12 Dose: 40 mg Docusate Sodium (Docusate Sodium 100 Mg Capsule) 100 mg PO BID PRN PRN Reason: Constipation Last Admin: 06/14/22 20:43 Dose: 100 mg Hydroxyzine HCl (Hydroxyzine Hcl 25 Mg Tablet) 25 mg PO Q6H PRN PRN Reason: Anxiety Last Admin: 06/15/22 02:47 Dose: 25 mg Magnesium Hydroxide (Milk Of Magnesia 30 Ml Oral.Susp) 30 ml PO DAILY PRN PRN Reason: Constipation Last Admin: 06/15/22 10:57 Dose: 30 ml Omeprazole (Omeprazole 20 Mg Capsule.Dr) 20 mg PO DAILY@0630 [facility] Last Admin: 06/19/22 04:30 Dose: 20 mg Risperidone (Risperidone 0.5 Mg Tablet) 0.5 mg PO BID PRN PRN Reason: Psychosis Last Admin: 06/09/22 18:35 Dose: 0.5 mg Trazodone HCl (Trazodone Hcl 50 Mg Tablet) 50 mg PO BEDTIME PRN PRN Reason: Insomnia Last Admin: 06/17/22 20:52 Dose: 50 mg Vitamin D (Cholecalciferol (Vitamin D3) 25 Mcg Tablet) 25 mcg PO DAILY [facility] Last Admin: 06/19/22 08:13 Dose: 25 mcg Allergies Allergies Allergy/AdvReac Type Severity Reaction Status Date / Time Penicillins [PENICILLINS] Allergy Severe HIVES Unverified 06/05/22 15:19 bee pollen [BEE STINGS] Allergy Unknown RASH Unverified 11/09/19 18:41 cortisone [CORTISONE] Allergy Unknown RASH Unverified 11/09/19 18:41 penicillin V Allergy Unknown rash Verified 08/07/19 00:00 Chocolate AdvReac Vomiting Verified 06/05/22 15:19 Benadryl Allergy Mild Vomiting Uncoded 06/05/22 15:19 bees Allergy Unknown swells up Uncoded 08/07/19 00:00 Assessment & Plan Assessment & Plan (1) Bipolar disorder: Status: Acute Code(s): F31.9 - Bipolar disorder, unspecified Assessment and Plan: Patient on Risperdal somewhat euphoric elevated encourage med compliance increase Risperdal (2) Routine history and physical examination of adult: Status: Inactive Code(s): Z00.00 - Encounter for general adult medical examination without abnormal findings Plan the patient is an elderly female with a long history of bipolar disorder with several prior admissions into the hospital for noncompliance. His torically the patient responds very well to Risperdal but she had been noncompliant in the community and decompensated with a manic episode. Plan 1. Gather collateral information. 2. Continue increased of Risperdal up to 1 mg p.o. b.i.d. Risperdal was discontinued the soon as Invega Sustenna was started 3. We will explore the possibility of Invega Sustenna or Risperdal Consta for long-acting injectable in the community. Apparently, her insurance does not cover long-acting injectables but her son is willing to pay for it 4. Continue with medical work 5. Invega Sustenna 234 mg IM on June 11. Next dose of Invega Sustenna will be 156 for next Wednesday on June 17. Reason for continued inpatient stay Substantial Risk for: inability to function, rapid decompensation and med/psych decompensation Time Spent With Patient Time: Total time managing care of this patient today _20___ minutes.
[2022-06-19 18:00] VITALS: BP 152/70; PULSE 94; RESP 16; TEMP 36; O2SAT 96
[2022-06-20] MEDS: Acetaminophen 325 MG TABLET 650 MG PO ×2 (03:11→14:56)
[2022-06-20] MEDS: hydrOXYzine HCL 25 MG TABLET PO (03:15)
[2022-06-20 08:00] VITALS: BP 141/72; PULSE 91; RESP 18; TEMP 36.2; O2SAT 93
[2022-06-20] MEDS: Aspirin 81 MG TAB.CHEW PO (08:13)
[2022-06-20] MEDS: Omeprazole 20 MG CAPSULE.DR PO (08:13)
[2022-06-20] MEDS: amLODIPine Besylate 5 MG TABLET PO (08:13)
[2022-06-20] MEDS: Atorvastatin Calcium 40 MG TABLET PO (08:14)
[2022-06-20] MEDS: Cholecalciferol (Vitamin D3) 25 MCG TABLET PO (08:14)
--- NOTE | 2022-06-20 11:33 | HO.PSYCHPN ---
Subjective Subjective Date of Service: 06/20/22 Reason For Visit: SI Interim History: c/o insomnia. pleasant, cooperative. no other complaints or requests. per staff, resolving cony. family mtg wednesday. no behavioral concerns. Mental Status Exam Mental Status Exam Patient Appearance: Well Grooomed and Appropriate Patient Orientation: Person and Situation Level of Consciousness: Awake and Appropriate Patient Behavior: Guarded and Passive Mood Description: Withdrawn Affect Description: Constricted Ability to Follow Directions: Good Speech Pattern: Clear Hallucinations: None Delusions: Not Present Thought Process: Linear and Slowed Thinking Thought Content: positive for [place] and positive for Circumstantial Judgement: Fair Diagnostics Vital Signs (24Hr): Vital Signs - 24 hr 06/19/22 18:00 06/20/22 08:00 Temperature 96.8 F 97.2 F Pulse Rate 94 91 Respiratory Rate 16 18 Blood Pressure 152/70 H 141/72 H Pulse Oximetry 96 93 Oxygen Delivery Method Room Air Room Air BMI result Body Mass Index 27.4 Labs 06/05/22 07:50 Medications Medications Current Medications Acetaminophen (Acetaminophen 325 Mg Tablet) 650 mg PO Q6H PRN PRN Reason: Headache/Pain Mild Scale (1-3) Last Admin: 06/20/22 03:11 Dose: 650 mg Al Hydroxide/Mg Hydroxide (Magnesium Hydrox/Alum Hydrox 30 Ml Oral.Susp) 30 ml PO Q6H PRN PRN Reason: Heartburn/Nausea Last Admin: 06/09/22 09:36 Dose: 30 ml Amlodipine Besylate (Amlodipine Besylate 5 Mg Tablet) 5 mg PO DAILY [facility]; Protocol Last Admin: 06/20/22 08:13 Dose: 5 mg Aspirin (Aspirin 81 Mg Tab.Chew) 81 mg PO DAILY [facility] Last Admin: 06/20/22 08:13 Dose: 81 mg Atorvastatin Calcium (Atorvastatin Calcium 40 Mg Tablet) 40 mg PO DAILY [facility] Last Admin: 06/20/22 08:14 Dose: 40 mg Docusate Sodium (Docusate Sodium 100 Mg Capsule) 100 mg PO BID PRN PRN Reason: Constipation Last Admin: 06/14/22 20:43 Dose: 100 mg Hydroxyzine HCl (Hydroxyzine Hcl 25 Mg Tablet) 25 mg PO Q6H PRN PRN Reason: Anxiety Last Admin: 06/20/22 03:15 Dose: 25 mg Magnesium Hydroxide (Milk Of Magnesia 30 Ml Oral.Susp) 30 ml PO DAILY PRN PRN Reason: Constipation Last Admin: 06/15/22 10:57 Dose: 30 ml Omeprazole (Omeprazole 20 Mg Capsule.Dr) 20 mg PO DAILY@0630 [facility] Last Admin: 06/20/22 08:13 Dose: 20 mg Risperidone (Risperidone 0.5 Mg Tablet) 0.5 mg PO BID PRN PRN Reason: Psychosis Last Admin: 06/09/22 18:35 Dose: 0.5 mg Trazodone HCl (Trazodone Hcl 50 Mg Tablet) 50 mg PO BEDTIME PRN PRN Reason: Insomnia Last Admin: 06/17/22 20:52 Dose: 50 mg Vitamin D (Cholecalciferol (Vitamin D3) 25 Mcg Tablet) 25 mcg PO DAILY [facility] Last Admin: 06/20/22 08:14 Dose: 25 mcg Allergies Allergies Allergy/AdvReac Type Severity Reaction Status Date / Time Penicillins [PENICILLINS] Allergy Severe HIVES Unverified 06/05/22 15:19 bee pollen [BEE STINGS] Allergy Unknown RASH Unverified 11/09/19 18:41 cortisone [CORTISONE] Allergy Unknown RASH Unverified 11/09/19 18:41 penicillin V Allergy Unknown rash Verified 08/07/19 00:00 Chocolate AdvReac Vomiting Verified 06/05/22 15:19 Benadryl Allergy Mild Vomiting Uncoded 06/05/22 15:19 bees Allergy Unknown swells up Uncoded 08/07/19 00:00 Assessment & Plan Assessment & Plan (1) Bipolar disorder: Status: Acute Code(s): F31.9 - Bipolar disorder, unspecified Assessment and Plan: Patient on Risperdal somewhat euphoric elevated encourage med compliance increase Risperdal (2) Routine history and physical examination of adult: Status: Inactive Code(s): Z00.00 - Encounter for general adult medical examination without abnormal findings Plan the patient is an elderly female with a long history of bipolar disorder with several prior admissions into the hospital for noncompliance. Historically the patient responds very well to Risperdal but she had been noncompliant in the community and decompensated with a manic episode. Plan 1. Gather collateral information. 2. Continue increased of Risperdal up to 1 mg p.o. b.i.d. Risperdal was discontinued the soon as Invega Sustenna was started 3. We will explore the possibility of Invega Sustenna or Risperdavelasquez Samuel for long-acting injectable in the community. Apparently, her insurance does not cover long-acting injectables but her son is willing to pay for it 4. Continue with medical work 5. Invega Sustenna 234 mg IM on June 11. Next dose of Invega Sustenna will be 156 for next Wednesday on June 17. 06/20: trazodone 50 scheduled at for insomnia. Reason for continued inpatient stay Substantial Risk for: inability to function and rapid decompensation Time Spent With Patient Time: Total time managing care of this patient today ____ minutes.
[2022-06-20 18:47] VITALS: BP 156/70; PULSE 80; RESP 16; TEMP 36.6; O2SAT 94
[2022-06-20] MEDS: traZODone HCL 50 MG TABLET PO (21:52)
[2022-06-20] MEDS: Milk of Magnesia 30 ML ORAL.SUSP PO (21:52)
[2022-06-21] MEDS: Omeprazole 20 MG CAPSULE.DR PO (06:07)
[2022-06-21 08:10] VITALS: BP 124/60; PULSE 82; RESP 16; TEMP 36.2; O2SAT 95
[2022-06-21] MEDS: Aspirin 81 MG TAB.CHEW PO (08:15)
[2022-06-21] MEDS: Cholecalciferol (Vitamin D3) 25 MCG TABLET PO (08:15)
[2022-06-21] MEDS: amLODIPine Besylate 5 MG TABLET PO (08:15)
[2022-06-21] MEDS: Atorvastatin Calcium 40 MG TABLET PO (08:15)
--- NOTE | 2022-06-21 11:33 | P.PNPSI_ITS ---
Subjective Subjective Date of Service: 06/21/22 Reason For Visit: SI Interim History: calm, cooperative. states she is having bloodwork tomorrow and a family mtg. she is planning for a weds discharge. bright, positive, appropriate. per staff, slept well, no notable events or behaviors. Mental Status Exam Mental Status Exam Patient Appearance: Well Grooomed and Appropriate Patient Orientation: Person and Situation Level of Consciousness: Awake and Appropriate Patient Behavior: Guarded and Passive Mood Description: Withdrawn Affect Description: Constricted Ability to Follow Directions: Good Speech Pattern: Clear Hallucinations: None Delusions: Not Present Thought Process: Linear and Slowed Thinking Thought Content: positive for [employer] [place] and positive for Circumstantial Judgement: Fair Diagnostics Vital Signs (24Hr): Vital Signs - 24 hr 06/20/22 18:47 06/21/22 08:10 Temperature 97.9 F 97.2 F Pulse Rate 80 82 Respiratory Rate 16 16 Blood Pressure 156/70 H 124/60 Pulse Oximetry 94 95 Oxygen Delivery Method Room Air Room Air BMI result Body Mass Index 27.4 Labs 06/05/22 07:50 Medications Medications Current Medications Acetaminophen (Acetaminophen 325 Mg Tablet) 650 mg PO Q6H PRN PRN Reason: Headache/Pain Mild Scale (1-3) Last Admin: 06/20/22 14:56 Dose: 650 mg Al Hydroxide/Mg Hydroxide (Magnesium Hydrox/Alum Hydrox 30 Ml Oral.Susp) 30 ml PO Q6H PRN PRN Reason: Heartburn/Nausea Last Admin: 06/09/22 09:36 Dose: 30 ml Amlodipine Besylate (Amlodipine Besylate 5 Mg Tablet) 5 mg PO DAILY [facility]; Protocol Last Admin: 06/21/22 08:15 Dose: 5 mg Aspirin (Aspirin 81 Mg Tab.Chew) 81 mg PO DAILY [facility] Last Admin: 06/21/22 08:15 Dose: 81 mg Atorvastatin Calcium (Atorvastatin Calcium 40 Mg Tablet) 40 mg PO DAILY [facility] Last Admin: 06/21/22 08:15 Dose: 40 mg Docusate Sodium (Docusate Sodium 100 Mg Capsule) 100 mg PO BID PRN PRN Reason: Constipation Last Admin: 06/14/22 20:43 Dose: 100 mg Hydroxyzine HCl (Hydroxyzine Hcl 25 Mg Tablet) 25 mg PO Q6H PRN PRN Reason: Anxiety Last Admin: 06/20/22 03:15 Dose: 25 mg Magnesium Hydroxide (Milk Of Magnesia 30 Ml Oral.Susp) 30 ml PO DAILY PRN PRN Reason: Constipation Last Admin: 06/20/22 21:52 Dose: 30 ml Omeprazole (Omeprazole 20 Mg Capsule.Dr) 20 mg PO DAILY@0630 [facility] Last Admin: 06/21/22 06:07 Dose: 20 mg Risperidone (Risperidone 0.5 Mg Tablet) 0.5 mg PO BID PRN PRN Reason: Psychosis Last Admin: 06/09/22 18:35 Dose: 0.5 mg Trazodone HCl (Trazodone Hcl 50 Mg Tablet) 50 mg PO BEDTIME PRN PRN Reason: Insomnia Last Admin: 06/17/22 20:52 Dose: 50 mg Trazodone HCl (Trazodone Hcl 50 Mg Tablet) 50 mg PO BEDTIME [facility] Last Admin: 06/20/22 21:52 Dose: 50 mg Vitamin D (Cholecalciferol (Vitamin D3) 25 Mcg Tablet) 25 mcg PO DAILY [facility] Last Admin: 06/21/22 08:15 Dose: 25 mcg Allergies Allergies Allergy/AdvReac Type Severity Reaction Status Date / Time Penicillins [PENICILLINS] Allergy Severe HIVES Unverified 06/05/22 15:19 bee pollen [BEE STINGS] Allergy Unknown RASH Unverified 11/09/19 18:41 cortisone [CORTISONE] Allergy Unknown RASH Unverified 11/09/19 18:41 penicillin V Allergy Unknown rash Verified 08/07/19 00:00 Chocolate AdvReac Vomiting Verified 06/05/22 15:19 Benadryl Allergy Mild Vomiting Uncoded 06/05/22 15:19 bees Allergy Unknown swells up Uncoded 08/07/19 00:00 Assessment & Plan Assessment & Plan (1) Bipolar disorder: Status: Acute Code(s): F31.9 - Bipolar disorder, unspecified Assessment and Plan: Patient on Risperdal somewhat euphoric elevated encourage med compliance increase Risperdal (2) Routine history and physical examination of adult: Status: Inactive Code(s): Z00.00 - Encounter for general adult medical examination without abnormal findings Plan the patient is an elderly female with a long history of bipolar disorder with several prior admissions into the hospital for noncompliance. Historically the patient responds very well to Risperdal but she had been noncompliant in the community and decompensated with a manic episode. Plan 1. Gather collateral information. 2. Continue increased of Risperdal up to 1 mg p.o. b.i.d. Risperdal was discontinued the soon as Invega Sustenna was started 3. We will explore the possibility of Invega Sustenna or Risperdal Consta for long-acting injectable in the community. Apparently, her insurance does not cover long-acting injectables but her son is willing to pay for it 4. Continue with medical work 5. Invega Sustenna 234 mg IM on June 11. Next dose of Invega Sustenna will be 156 for next Wednesday on June 17. 06/20: trazodone 50 scheduled at [facility] for insomnia. 06/21: bright, positive, appropriate. continue current mgmt. no complaints or requests. Reason for continued inpatient stay Substantial Risk for: rapid decompensation Time Spent With Patient Time: Total time managing care of this patient today ____ minutes.
[2022-06-21 18:00] VITALS: BP 128/63; PULSE 80; RESP 18; TEMP 36.7; O2SAT 95
[2022-06-21] MEDS: traZODone HCL 50 MG TABLET PO (19:52)
[2022-06-22] MEDS: Omeprazole 20 MG CAPSULE.DR PO (05:37)
[2022-06-22 06:00] VITALS: BP 139/60; PULSE 104; RESP 18; TEMP 36.6; O2SAT 95
[2022-06-22 08:01] LABS: MANUAL DIFF FLAG NO
[2022-06-22 08:06] LABS: Basophils Absolute Auto 0.1 X10*3/uL (0.0-0.2); Basophils Percent Auto 0.8 % (0-2); Eosinophils Absolute Auto 0.2 X10*3/uL (0.0-0.4); Eosinophils Percent Auto 2.2 % (0-4); Hematocrit 39.6 % (37.0-47.0); Hemoglobin 13.2 g/dl (12.0-16.0); Imm Gran Abs Auto 0.02 X10*3/uL (0.00-0.03); Imm Gran Pct Auto 0.3 % (0.0-0.4); Lymphocytes Absolute Auto 2.7 X10*3/uL (1.2-4.9); Lymphocytes Percent Auto 35.4 % (20-40); Mean Corpuscular HGB Conc 33.3 g/dl (31.0-35.0); Mean Corpuscular Hemoglobin 29.1 pg (27.0-33.0); Mean Corpuscular Volume 87.4 fL (80.0-98.0); Mean Platelet Volume 10.9 fL (9.4-12.3); Monocytes Absolute Auto 0.4 X10*3/uL (0.1-1.2); Monocytes Percent Auto 5.8 % (2-11); Neutrophils Absolute Auto 4.2 x10*3/uL (2.0-8.3); Neutrophils Percent Auto 55.5 % (45-73); Platelet Count 231 X10*3/uL (160-400); Red Blood Count 4.53 X10*6/uL (4.20-5.50); Red Cell Distribution Width 13.7 % (11.0-16.0); White Blood Count 7.6 X10*3/uL (4.8-10.8)
[2022-06-22 08:13] LABS: Estimated Average Glucose 111 mg/dL; Hemoglobin A1c % 5.5 %
[2022-06-22 08:26] LABS: Alanine Aminotransferase 30 U/L (0-31); Albumin Level 3.8 g/dL (3.5-5.0); Alkaline Phosphatase 87 U/L (39-117); Anion Gap 12 (12-20); Aspartate Amino Transferase 20 U/L (5-31); Bilirubin Direct 0.2 mg/dL (0.0-0.5); Bilirubin Total 0.5 mg/dL (0.0-1.0); Blood Urea Nitrogen 15 mg/dL (9-16); Calcium 9.7 mg/dL (8.4-10.2); Carbon Dioxide 25 mmol/L (22-29); Chloride 109 mmol/L (96-108); Cholesterol 163 mg/dL; Creatinine Clr Calc Pharmacy 65.5; Estimated Glomerular Filt Rate > 60; Glucose Random 103 mg/dL (60-115); HDL Cholesterol 61 mg/dL; LDL Cholesterol Calculated 87 mg/dl; Potassium 4.1 mmol/L (3.3-5.1); Sodium 142 mmol/L (135-145); Total Protein 6.2 g/dL (6.5-8.0); Triglycerides 78 mg/dL
[2022-06-22 08:40] LABS: Thyroid Stimulating Hormone 2.34 uIU/mL (0.32-4.0)
[2022-06-22] MEDS: amLODIPine Besylate 5 MG TABLET PO (09:09)
[2022-06-22] MEDS: Cholecalciferol (Vitamin D3) 25 MCG TABLET PO (09:10)
[2022-06-22] MEDS: Aspirin 81 MG TAB.CHEW PO (09:10)
[2022-06-22] MEDS: Atorvastatin Calcium 40 MG TABLET PO (09:10)
--- NOTE | 2022-06-22 13:28 | P.PNPSI_ITS ---
Subjective Subjective Date of Service: 06/22/22 Reason For Visit: SI Subjective Notes: Conditional Voluntary Interim History: The nursing staff reported the patient denies anxiety or depression she is pleasant visible she shower yesterday. She denies any other symptoms. The occupational therapist reported on groups she does well, less paranoid and intrusive. The perinatal social worker reported she tried to call the family but they have not called back. On interview the patient denies new symptoms she looks less manic still symptomatic but more in control than Wednesday. Mental Status Exam Mental Status Exam Patient Appearance: Appropriate Patient Orientation: Person and Situation Level of Consciousness: Awake and Appropriate Patient Behavior: Guarded and Passive Mood Description: Calm Affect Description: Labile Patient Cognition Impaired: Yes Ability to Follow Directions: Good Speech Pattern: Clear Hallucinations: None Delusions: Grandiose Thought Process: Racing and Distracted Thought Content: positive for [place] and positive for Circumstantial Judgement: Fair Diagnostics Vital Signs (24Hr): Vital Signs - 24 hr 06/21/22 18:00 06/22/22 06:00 Temperature 98.1 F 97.9 F Pulse Rate 80 104 H Respiratory Rate 18 18 Blood Pressure 128/63 139/60 Pulse Oximetry 95 95 Oxygen Delivery Method Room Air Room Air BMI result Body Mass Index 27.4 Labs 06/22/22 07:45 06/22/22 07:45 Labs: Laboratory Results - last 48 hr 06/22/22 06/22/22 06/22/22 07:45 07:45 07:45 WBC 7.6 RBC 4.53 Hgb 13.2 Hct 39.6 MCV 87.4 MCH 29.1 MCHC 33.3 RDW 13.7 Plt Count 231 MPV 10.9 Immature Gran % (Auto) 0.3 Neut % (Auto) 55.5 Lymph % (Auto) 35.4 Perkins % (Auto) 5.8 Eos % (Auto) 2.2 Baso % (Auto) 0.8 Lymph # (Auto) 2.7 Perkins # (Auto) 0.4 Eos # (Auto) 0.2 Baso # (Auto) 0.1 Abs Immat Gran (auto) 0.02 Absolute Neuts (auto) 4.2 Absolute Nucleated RBC 0.000 Nucleated RBC % (auto) 0.0 Sodium 142 Potassium 4.1 Chloride 109 H Carbon Dioxide 25 Anion Gap 12 BUN 15 Creatinine 0.68 Estim Creat Clear Calc 65.5 Estimated GFR > 60 Random Glucose 103 Estimat Average Glucose 111 Hemoglobin A1c % 5.5 Calcium 9.7 Total Bilirubin 0.5 Direct Bilirubin 0.2 AST 20 ALT 30 Alkaline Phosphatase 87 Total Protein 6.2 L Albumin 3.8 Triglycerides 78 Cholesterol 163 LDL Cholesterol, Calc 87 HDL Cholesterol 61 TSH 2.34 Medications Medications Current Medications Acetaminophen (Acetaminophen 325 Mg Tablet) 650 mg PO Q6H PRN PRN Reason: Headache/Pain Mild Scale (1-3) Last Admin: 06/20/22 14:56 Dose: 650 mg Al Hydroxide/Mg Hydroxide (Magnesium Hydrox/Alum Hydrox 30 Ml Oral.Susp) 30 ml PO Q6H PRN PRN Reason: Heartburn/Nausea Last Admin: 06/09/22 09:36 Dose: 30 ml Amlodipine Besylate (Amlodipine Besylate 5 Mg Tablet) 5 mg PO DAILY [facility]; Protocol Last Admin: 06/22/22 09:09 Dose: 5 mg Aspirin (Aspirin 81 Mg Tab.Chew) 81 mg PO DAILY [facility] Last Admin: 06/22/22 09:10 Dose: 81 mg Atorvastatin Calcium (Atorvastatin Calcium 40 Mg Tablet) 40 mg PO DAILY [facility] Last Admin: 06/22/22 09:10 Dose: 40 mg Docusate Sodium (Docusate Sodium 100 Mg Capsule) 100 mg PO BID PRN PRN Reason: Constipation Last Admin: 06/14/22 20:43 Dose: 100 mg Hydroxyzine HCl (Hydroxyzine Hcl 25 Mg Tablet) 25 mg PO Q6H PRN PRN Reason: Anxiety Last Admin: 06/20/22 03:15 Dose: 25 mg Magnesium Hydroxide (Milk Of Magnesia 30 Ml Oral.Susp) 30 ml PO DAILY PRN PRN Reason: Constipation Last Admin: 06/20/22 21:52 Dose: 30 ml Omeprazole (Omeprazole 20 Mg Capsule.Dr) 20 mg PO DAILY@0630 [facility] Last Admin: 06/22/22 05:37 Dose: 20 mg Risperidone (Risperidone 0.5 Mg Tablet) 0.5 mg PO BID PRN PRN Reason: Psychosis Last Admin: 06/09/22 18:35 Dose: 0.5 mg Trazodone HCl (Trazodone Hcl 50 Mg Tablet) 50 mg PO BEDTIME PRN PRN Reason: Insomnia Last Admin: 06/17/22 20:52 Dose: 50 mg Trazodone HCl (Trazodone Hcl 50 Mg Tablet) 50 mg PO BEDTIME [facility] Last Admin: 06/21/22 19:52 Dose: 50 mg Vitamin D (Cholecalciferol (Vitamin D3) 25 Mcg Tablet) 25 mcg PO DAILY [facility] Last Admin: 06/22/22 09:10 Dose: 25 mcg Allergies Allergies Allergy/AdvReac Type Severity Reaction Status Date / Time Penicillins [PENICILLINS] Allergy Severe HIVES Unverified 06/05/22 15:19 bee pollen [BEE STINGS] Allergy Unknown RASH Unverified 11/09/19 18:41 cortisone [CORTISONE] Allergy Unknown RASH Unverified 11/09/19 18:41 penicillin V Allergy Unknown rash Verified 08/07/19 00:00 Chocolate AdvReac Vomiting Verified 06/05/22 15:19 Benadryl Allergy Mild Vomiting Uncoded 06/05/22 15:19 bees Allergy Unknown swells up Uncoded 08/07/19 00:00 Assessment & Plan Assessment & Plan (1) Psychosis: Status: Acute Code(s): F29 - Unspecified psychosis not due to a substance or known physiological condition (2) Bipolar disorder: Status: Acute Code(s): F31.9 - Bipolar disorder, unspecified Assessment and Plan: Patient on Risperdal somewhat euphoric elevated encourage med compliance increase Risperdal (3) Routine history and physical examination of adult: Status: Inactive Code(s): Z00.00 - Encounter for general adult medical examination without abnormal findings Plan the patient is an elderly female with a long history of bipolar disorder with several prior admissions into the hospital for noncompliance. Historically the patient responds very well to Risperdal but she had been noncompliant in the community and decompensated with a manic episode. Plan 1. Gather collateral information. 2. Continue increased of Risperdal up to 1 mg p.o. b.i.d. Risperdal was discontinued the soon as Invega Sustenna was started 3. We will explore the possibility of Invega Sustenna or Risperdal Consta for long-acting injectable in the community. Apparently, her insurance does not cover long-acting injectables but her son is willing to pay for it 4. Continue with medical work 5. Invega Sustenna 234 mg IM on June 11. Next dose of Invega Sustenna will be 156 for next Wednesday on June 17. Work on discharge planning for an early discharge Reason for continued inpatient stay Substantial Risk for: inability to function, rapid decompensation and med/psych decompensation Time Spent With Patient Time: Total time managing care of this patient today __20__ minutes.
[2022-06-22 19:53] VITALS: BP 126/60; PULSE 89; RESP 18; TEMP 36.4; O2SAT 96
[2022-06-22] MEDS: traZODone HCL 50 MG TABLET PO (20:09)
[2022-06-23] MEDS: Omeprazole 20 MG CAPSULE.DR PO (06:02)
[2022-06-23 08:40] VITALS: BP 120/58; PULSE 79; RESP 16; TEMP 36.1; O2SAT 94
[2022-06-23] MEDS: Cholecalciferol (Vitamin D3) 25 MCG TABLET PO (08:41)
[2022-06-23] MEDS: Aspirin 81 MG TAB.CHEW PO (08:42)
[2022-06-23] MEDS: Atorvastatin Calcium 40 MG TABLET PO (08:42)
[2022-06-23] MEDS: amLODIPine Besylate 5 MG TABLET PO (08:42)
[2022-06-23] MEDS: Acetaminophen 325 MG TABLET 650 MG PO ×2 (11:44→18:05)
--- NOTE | 2022-06-23 11:58 | HO.PSYCHPN ---
Subjective Subjective Date of Service: 06/23/22 Reason For Visit: SI Subjective Notes: Conditional Voluntary Interim History: The nursing staff reported the patient had being visible in the unit, pleasant cooperative in good spirits even happy. Today we will have a family meeting will try to find financial support for his long-acting injectable. On interview the patient denies new symptoms she looks more euthymic but still with racing thoughts Mental Status Exam Mental Status Exam Patient Appearance: Well Grooomed and Appropriate Patient Orientation: Person, Place and Situation Level of Consciousness: Awake and Appropriate Patient Behavior: Cooperative Mood Description: Appropriate Affect Description: Labile Patient Cognition Impaired: No Ability to Follow Directions: Good Speech Pattern: Clear Hallucinations: None Delusions: Not Present Thought Process: Racing and Distracted Thought Content: positive for [place] and positive for Circumstantial Judgement: Fair Diagnostics Vital Signs (24Hr): Vital Signs - 24 hr 06/22/22 19:53 Temperature 97.6 F Pulse Rate 89 Respiratory Rate 18 Blood Pressure 126/60 Pulse Oximetry 96 Oxygen Delivery Method Room Air BMI result Body Mass Index 27.4 Labs 06/22/22 07:45 06/22/22 07:45 Labs: Laboratory Results - last 48 hr 06/22/22 06/22/22 06/22/22 07:45 07:45 07:45 WBC 7.6 RBC 4.53 Hgb 13.2 Hct 39.6 MCV 87.4 MCH 29.1 MCHC 33.3 RDW 13.7 Plt Count 231 MPV 10.9 Immature Gran % (Auto) 0.3 Neut % (Auto) 55.5 Lymph % (Auto) 35.4 [place] % (Auto) 5.8 Eos % (Auto) 2.2 Baso % (Auto) 0.8 Lymph # (Auto) 2.7 [place] # (Auto) 0.4 Eos # (Auto) 0.2 Baso # (Auto) 0.1 Abs Immat Gran (auto) 0.02 Absolute Neuts (auto) 4.2 Absolute Nucleated RBC 0.000 Nucleated RBC % (auto) 0.0 Sodium 142 Potassium 4.1 Chloride 109 H Carbon Dioxide 25 Anion Gap 12 BUN 15 Creatinine 0.68 Estim Creat Clear Calc 65.5 Estimated GFR > 60 Random Glucose 103 Estimat Average Glucose 111 Hemoglobin A1c % 5.5 Calcium 9.7 Total Bilirubin 0.5 Direct Bilirubin 0.2 AST 20 ALT 30 Alkaline Phosphatase 87 Total Protein 6.2 L Albumin 3.8 Triglycerides 78 Cholesterol 163 LDL Cholesterol, Calc 87 HDL Cholesterol 61 TSH 2.34 Medications Medications Current Medications Acetaminophen (Acetaminophen 325 Mg Tablet) 650 mg PO Q6H PRN PRN Reason: Headache/Pain Mild Scale (1-3) Last Admin: 06/23/22 11:44 Dose: 650 mg Al Hydroxide/Mg Hydroxide (Magnesium Hydrox/Alum Hydrox 30 Ml Oral.Susp) 30 ml PO Q6H PRN PRN Reason: Heartburn/Nausea Last Admin: 06/09/22 09:36 Dose: 30 ml Amlodipine Besylate (Amlodipine Besylate 5 Mg Tablet) 5 mg PO DAILY COUNTS INCLUDE 234 BEDS AT THE [facility]; Protocol Last Admin: 06/23/22 08:42 Dose: 5 mg Aspirin (Aspirin 81 Mg Tab.Chew) 81 mg PO DAILY COUNTS INCLUDE 234 BEDS AT THE [facility] Last Admin: 06/23/22 08:42 Dose: 81 mg Atorvastatin Calcium (Atorvastatin Calcium 40 Mg Tablet) 40 mg PO DAILY COUNTS INCLUDE 234 BEDS AT THE [facility] Last Admin: 06/23/22 08:42 Dose: 40 mg Docusate Sodium (Docusate Sodium 100 Mg Capsule) 100 mg PO BID PRN PRN Reason: Constipation Last Admin: 06/14/22 20:43 Dose: 100 mg Hydroxyzine HCl (Hydroxyzine Hcl 25 Mg Tablet) 25 mg PO Q6H PRN PRN Reason: Anxiety Last Admin: 06/20/22 03:15 Dose: 25 mg Magnesium Hydroxide (Milk Of Magnesia 30 Ml Oral.Susp) 30 ml PO DAILY PRN PRN Reason: Constipation Last Admin: 06/20/22 21:52 Dose: 30 ml Omeprazole (Omeprazole 20 Mg Capsule.Dr) 20 mg PO DAILY@0630 COUNTS INCLUDE 234 BEDS AT THE [facility] Last Admin: 06/23/22 06:02 Dose: 20 mg Risperidone (Risperidone 0.5 Mg Tablet) 0.5 mg PO BID PRN PRN Reason: Psychosis Last Admin: 06/09/22 18:35 Dose: 0.5 mg Trazodone HCl (Trazodone Hcl 50 Mg Tablet) 50 mg PO BEDTIME PRN PRN Reason: Insomnia Last Admin: 06/17/22 20:52 Dose: 50 mg Trazodone HCl (Trazodone Hcl 50 Mg Tablet) 50 mg PO BEDTIME COUNTS INCLUDE 234 BEDS AT THE [facility] Last Admin: 06/22/22 20:09 Dose: 50 mg Vitamin D (Cholecalciferol (Vitamin D3) 25 Mcg Tablet) 25 mcg PO DAILY COUNTS INCLUDE 234 BEDS AT THE [facility] Last Admin: 06/23/22 08:41 Dose: 25 mcg Allergies Allergies Allergy/AdvReac Type Severity Reaction Status Date / Time Penicillins [PENICILLINS] Allergy Severe HIVES Unverified 06/05/22 15:19 bee pollen [BEE STINGS] Allergy Unknown RASH Unverified 11/09/19 18:41 cortisone [CORTISONE] Allergy Unknown RASH Unverified 11/09/19 18:41 penicillin V Allergy Unknown rash Verified 08/07/19 00:00 Chocolate AdvReac Vomiting Verified 06/05/22 15:19 Benadryl Allergy Mild Vomiting Uncoded 06/05/22 15:19 bees Allergy Unknown swells up Uncoded 08/07/19 00:00 Assessment & Plan Assessment & Plan (1) Psychosis: Status: Acute Code(s): F29 - Unspecified psychosis not due to a substance or known physiological condition (2) Bipolar disorder: Status: Acute Code(s): F31.9 - Bipolar disorder, unspecified Assessment and Plan: Patient on Risperdal somewhat euphoric elevated encourage med compliance increase Risperdal (3) Routine history and physical examination of adult: Status: Inactive Code(s): Z00.00 - Encounter for general adult medical examination without abnormal findings Plan the patient is an elderly female with a long history of bipolar disorder with several prior admissions into the hospital for noncompliance. Historically the patient responds very well to Risperdal but she had been noncompliant in the community and decompensated with a manic episode. Plan 1. Gather collateral information. 2. Continue increased of Risperdal up to 1 mg p.o. b.i.d. Risperdal was discontinued the soon as Invega Sustenna was started 3. We will explore the possibility of Invega Sustenna or Risperdal Consta for long-acting injectable in the community. Apparently, her insurance does not cover long-acting injectables but her son is willing to pay for it 4. Continue with medical work 5. Invega Sustenna 234 mg IM on June 11. Next dose of Invega Sustenna will be 156 for next Wednesday on June 17. 6. Work on discharge planning for an early discharge Informed Consent: understands Reason for continued inpatient stay Substantial Risk for: inability to function, rapid decompensation and med/psych decompensation Time Spent With Patient Time: Total time managing care of this patient today _20___ minutes.
[2022-06-23 18:00] VITALS: BP 151/75; PULSE 75; RESP 18; TEMP 36.6; O2SAT 96
[2022-06-23] MEDS: traZODone HCL 50 MG TABLET PO (21:06)
[2022-06-24] MEDS: Omeprazole 20 MG CAPSULE.DR PO (05:32)
[2022-06-24 07:45] VITALS: BP 126/60; PULSE 84; RESP 16; TEMP 36.3; O2SAT 96
--- NOTE | 2022-06-24 07:50 | P.PNPSI_ITS ---
Subjective Subjective Date of Service: 06/24/22 Reason For Visit: SI Subjective Notes: Conditional Voluntary Interim History: The nursing staff reported the patient had been cheerful, active visible in the common areas. On interview the patient denies new symptoms she was asking about the possibility of discharge. We discussed with the patient the need of compliance with Invega Sustenna, we had a family meeting yesterday regarding discharge planning. Mental Status Exam Mental Status Exam Patient Appearance: Well Grooomed and Appropriate Patient Orientation: Person and Situation Level of Consciousness: Awake and Appropriate Patient Behavior: Guarded and Passive Mood Description: Calm Affect Description: Cheerful Patient Cognition Impaired: No Ability to Follow Directions: Good Speech Pattern: Clear Hallucinations: None Delusions: Not Present Thought Process: Distracted Thought Content: positive for [place] and positive for Circumstantial Judgement: Fair Diagnostics Vital Signs (24Hr): Vital Signs - 24 hr 06/23/22 08:40 06/23/22 18:00 Temperature 97.0 F 97.9 F Pulse Rate 79 75 Respiratory Rate 16 18 Blood Pressure 120/58 L 151/75 H Pulse Oximetry 94 96 Oxygen Delivery Method Room Air Room Air BMI result Body Mass Index 27.4 Labs 06/22/22 07:45 06/22/22 07:45 Labs: Laboratory Results - last 48 hr 06/22/22 06/22/22 06/22/22 07:45 07:45 07:45 WBC 7.6 RBC 4.53 Hgb 13.2 Hct 39.6 MCV 87.4 MCH 29.1 MCHC 33.3 RDW 13.7 Plt Count 231 MPV 10.9 Immature Gran % (Auto) 0.3 Neut % (Auto) 55.5 Lymph % (Auto) 35.4 [place] % (Auto) 5.8 Eos % (Auto) 2.2 Baso % (Auto) 0.8 Lymph # (Auto) 2.7 Power # (Auto) 0.4 Eos # (Auto) 0.2 Baso # (Auto) 0.1 Abs Immat Gran (auto) 0.02 Absolute Neuts (auto) 4.2 Absolute Nucleated RBC 0.000 Nucleated RBC % (auto) 0.0 Sodium 142 Potassium 4.1 Chloride 109 H Carbon Dioxide 25 Anion Gap 12 BUN 15 Creatinine 0.68 Estim Creat Clear Calc 65.5 Estimated GFR > 60 Random Glucose 103 Estimat Average Glucose 111 Hemoglobin A1c % 5.5 Calcium 9.7 Total Bilirubin 0.5 Direct Bilirubin 0.2 AST 20 ALT 30 Alkaline Phosphatase 87 Total Protein 6.2 L Albumin 3.8 Triglycerides 78 Cholesterol 163 LDL Cholesterol, Calc 87 HDL Cholesterol 61 TSH 2.34 Medications Medications Current Medications Acetaminophen (Acetaminophen 325 Mg Tablet) 650 mg PO Q6H PRN PRN Reason: Headache/Pain Mild Scale (1-3) Last Admin: 06/23/22 18:05 Dose: 650 mg Al Hydroxide/Mg Hydroxide (Magnesium Hydrox/Alum Hydrox 30 Ml Oral.Susp) 30 ml PO Q6H PRN PRN Reason: Heartburn/Nausea Last Admin: 06/09/22 09:36 Dose: 30 ml Amlodipine Besylate (Amlodipine Besylate 5 Mg Tablet) 5 mg PO DAILY [facility]; Protocol Last Admin: 06/23/22 08:42 Dose: 5 mg Aspirin (Aspirin 81 Mg Tab.Chew) 81 mg PO DAILY [facility] Last Admin: 06/23/22 08:42 Dose: 81 mg Atorvastatin Calcium (Atorvastatin Calcium 40 Mg Tablet) 40 mg PO DAILY [facility] Last Admin: 06/23/22 08:42 Dose: 40 mg Docusate Sodium (Docusate Sodium 100 Mg Capsule) 100 mg PO BID PRN PRN Reason: Constipation Last Admin: 06/14/22 20:43 Dose: 100 mg Hydroxyzine HCl (Hydroxyzine Hcl 25 Mg Tablet) 25 mg PO Q6H PRN PRN Reason: Anxiety Last Admin: 06/20/22 03:15 Dose: 25 mg Magnesium Hydroxide (Milk Of Magnesia 30 Ml Oral.Susp) 30 ml PO DAILY PRN PRN Reason: Constipation Last Admin: 06/20/22 21:52 Dose: 30 ml Omeprazole (Omeprazole 20 Mg Capsule.Dr) 20 mg PO DAILY@0630 [facility] Last Admin: 06/24/22 05:32 Dose: 20 mg Trazodone HCl (Trazodone Hcl 50 Mg Tablet) 50 mg PO BEDTIME PRN PRN Reason: Insomnia Last Admin: 06/17/22 20:52 Dose: 50 mg Trazodone HCl (Trazodone Hcl 50 Mg Tablet) 50 mg PO BEDTIME [facility] Last Admin: 06/23/22 21:06 Dose: 50 mg Vitamin D (Cholecalciferol (Vitamin D3) 25 Mcg Tablet) 25 mcg PO DAILY [facility] Last Admin: 06/23/22 08:41 Dose: 25 mcg Allergies Allergies Allergy/AdvReac Type Severity Reaction Status Date / Time Penicillins [PENICILLINS] Allergy Severe HIVES Unverified 06/05/22 15:19 bee pollen [BEE STINGS] Allergy Unknown RASH Unverified 11/09/19 18:41 cortisone [CORTISONE] Allergy Unknown RASH Unverified 11/09/19 18:41 penicillin V Allergy Unknown rash Verified 08/07/19 00:00 Chocolate AdvReac Vomiting Verified 06/05/22 15:19 Benadryl Allergy Mild Vomiting Uncoded 06/05/22 15:19 bees Allergy Unknown swells up Uncoded 08/07/19 00:00 Assessment & Plan Assessment & Plan (1) Psychosis: Status: Acute Code(s): F29 - Unspecified psychosis not due to a substance or known physiological condition (2) Bipolar disorder: Status: Acute Code(s): F31.9 - Bipolar disorder, unspecified Assessment and Plan: Patient on Risperdal somewhat euphoric elevated encourage med compliance increase Risperdal (3) Routine history and physical examination of adult: Status: Inactive Code(s): Z00.00 - Encounter for general adult medical examination without abnormal findings Plan the patient is an elderly female with a long history of bipolar disorder with several prior admissions into the hospital for noncompliance. Historically the patient responds very well to Risperdal but she had been noncompliant in the community and decompensated with a manic episode. Plan 1. Gather collateral information. 2. Continue increased of Risperdal up to 1 mg p.o. b.i.d. Risperdal was discontinued the soon as Invega Sustenna was started 3. We will explore the possibility of Invega Sustenna or Risperdal Consta for long-acting injectable in the community. Apparently, her insurance does not cover long-acting injectables but her son is willing to pay for it 4. Continue with medical work 5. Invega Sustenna 234 mg IM on June 11. Next dose of Invega Sustenna will be 156 for next Wednesday on June 17. 6. Work on discharge planning for an early discharge Reason for continued inpatient stay Substantial Risk for: inability to function, rapid decompensation and med/psych decompensation Time Spent With Patient Time: Total time managing care of this patient today __20__ minutes.
[2022-06-24] MEDS: Cholecalciferol (Vitamin D3) 25 MCG TABLET PO (08:17)
[2022-06-24] MEDS: amLODIPine Besylate 5 MG TABLET PO (08:17)
[2022-06-24] MEDS: Aspirin 81 MG TAB.CHEW PO (08:17)
[2022-06-24] MEDS: Atorvastatin Calcium 40 MG TABLET PO (08:17)
[2022-06-24 18:00] VITALS: BP 124/61; PULSE 74; RESP 16; TEMP 36.6; O2SAT 93
[2022-06-24] MEDS: traZODone HCL 50 MG TABLET PO (20:37)
[2022-06-25] MEDS: Acetaminophen 325 MG TABLET 650 MG PO (04:39)
[2022-06-25] MEDS: Omeprazole 20 MG CAPSULE.DR PO (05:48)
[2022-06-25 07:00] VITALS: BMI 27.1
[2022-06-25 07:30] VITALS: BP 113/67; PULSE 81; RESP 16; TEMP 36.5; O2SAT 96
[2022-06-25] MEDS: Atorvastatin Calcium 40 MG TABLET PO (08:19)
[2022-06-25] MEDS: Cholecalciferol (Vitamin D3) 25 MCG TABLET PO (08:19)
[2022-06-25] MEDS: amLODIPine Besylate 5 MG TABLET PO (08:19)
[2022-06-25] MEDS: Aspirin 81 MG TAB.CHEW PO (08:19)
--- NOTE | 2022-06-25 09:44 | PM.PSYDC ---
DS: Providers Provider Date of Service: 06/25/22 Date of admission: 06/04/22 17:03 Date of discharge: 06/25/22 Primary care physician: Unknown Physician Consults: 06/04/22 18:21 Consult to Hospitalist Routine Comment: Consulting Provider: Hospitalist Reason For Exam: Medical H&P Attending physician on discharge: Davis Jiang DS: Diagnosis Discharge Diagnosis (1) Psychosis: Status: Acute (2) Bipolar disorder: Status: Acute (3) Routine history and physical examination of adult: Status: Inactive DS: Medications Discharge Medications Home Medications: Home Medications Medication Instructions Recorded Confirmed acetaminophen 325 mg tablet 975 mg PO Q6H PRN Pain, Mild 06/04/22 06/04/22 aspirin 81 mg chewable tablet 81 mg PO DAILY 06/04/22 06/04/22 atorvastatin 40 mg tablet 40 mg PO DAILY 06/04/22 06/04/22 cephalexin 500 mg capsule 500 mg PO BID 06/04/22 06/04/22 cholecalciferol (vitamin D3) 250 250 mcg PO DAILY 06/04/22 06/04/22 mcg (10,000 unit) capsule docusate sodium 50 mg tablet 50 mg PO BID PRN Constipation 06/04/22 06/04/22 fluticasone furoate 50 50 mcg inhalation BID 06/04/22 06/04/22 mcg/actuation blister powder for inhalation ibuprofen 600 mg tablet 600 mg PO Q6H PRN PAIN, MODERATE 06/04/22 06/04/22 multivitamin 1 tab PO DAILY 06/04/22 06/04/22 omeprazole 20 mg capsule,delayed 20 mg PO DAILY 06/04/22 06/04/22 release oxycodone 5 mg tablet 5 mg PO Q6H PRN Pain, Severe 06/04/22 06/04/22 risperidone 0.5 mg tablet 0.5 mg PO BEDTIME 06/04/22 06/04/22 risperidone 0.5 mg tablet 0.5 mg PO BID PRN Agitation 06/04/22 06/04/22 Mental Status Exam Mental Status Exam Patient Appearance: Well Grooomed and Appropriate Patient Orientation: Person, Place and Situation Level of Consciousness: Awake and Appropriate Patient Behavior: Guarded and Passive Mood Description: Withdrawn and Constricted Affect Description: Calm Patient Cognition Impaired: No Ability to Follow Directions: Good Speech Pattern: Clear Memory Description: Intact Hallucinations: None Delusions: Not Present Thought Process: Linear Thought Content: positive for Circumstantial Judgement: Fair Data Data Completed and Pending Completed studies during hospitalization [Text1]: 06/22/22 06/22/22 06/22/22 07:45 07:45 07:45 WBC 7.6 RBC 4.53 Hgb 13.2 Hct 39.6 MCV 87.4 MCH 29.1 MCHC 33.3 RDW 13.7 Plt Count 231 MPV 10.9 Immature Gran % (Auto) 0.3 Neut % (Auto) 55.5 Lymph % (Auto) 35.4 [place] % (Auto) 5.8 Eos % (Auto) 2.2 Baso % (Auto) 0.8 Lymph # (Auto) 2.7 [place] # (Auto) 0.4 Eos # (Auto) 0.2 Baso # (Auto) 0.1 Abs Immat Gran (auto) 0.02 Absolute Neuts (auto) 4.2 Absolute Nucleated RBC 0.000 Nucleated RBC % (auto) 0.0 Sodium 142 Potassium 4.1 Chloride 109 H Carbon Dioxide 25 Anion Gap 12 BUN 15 Creatinine 0.68 Estim Creat Clear Calc 65.5 Estimated GFR > 60 Random Glucose 103 Estimat Average Glucose 111 Hemoglobin A1c % 5.5 Calcium 9.7 Total Bilirubin 0.5 Direct Bilirubin 0.2 AST 20 ALT 30 Alkaline Phosphatase 87 Total Protein 6.2 L Albumin 3.8 Triglycerides 78 Cholesterol 163 LDL Cholesterol, Calc 87 HDL Cholesterol 61 TSH 2.34 DS: Summary Hospital Course Hospital Course: The patient was admitted to this facility after she presented manic symptoms in the context of noncompliance. Please see the HPI for further details on the admission note. The patient carries a diagnosis of bipolar disorder and she had several prior admissions into different facilities for manic decompensation. On admission we did a regular workout with medical clearance, review of past medical history and psychiatric trials in the past. According to the patient's report and patient's family, the patient was very successful with risperidone and Risperdal Consta but they could not afford it since her insurance does not cover long-acting injectables. On admission, the patient was grossly manic with racing thoughts, flight of ideas increased psychomotor agitation and elated mood. She also had a UTI that was treated successfully with cephalexin. We had several family meetings and her son reported that he will paid out of the pocket for long-acting injectables since it has been improvement that keeps her out of the hospital. We discussed with the patient's risks, benefits, side-effects and alternatives. She agreed on long-acting injectables, she agreed to take Invega Sustenna 234 mg and later on a 2nd dose of Invega Sustenna 156. We tried before Risperdal p.o. with very limited improvement the patient's mood improved dramatically been less than a week after the 1st dose. Since the patient present in euthymic mood, resolution of psychosis and no evidence of side effects discharge planning was discussed. Time spent discussing smoking cessation with patient: 3 to 10 minutes Status at Discharge Functional status at discharge: independent ambulation Overall status at discharge: patient is back to baseline Time Spent with Patient Time attestation: Total time managing care of this patient today ____ minutes. Time spent: Less than 30 minutes Discharge Plan Discharge Anticipated Discharge Date/Time: 06/25/22 10:01 Patient Disposition: Home, Self-Care Discharge Diagnosis: Bipolar disorder most recent episode manic Delirium due to UTI resolved Referrals: [facility] [Other] - 07/17/22 11:00 am (Next injection scheduled for Jul 17 2022 ) Physician,Ibeth Flethcer [Primary Care Provider] - 07/09/22 10:00 am (Follow up PCP appt. scheduled for 07/09/[address] Monk. ) Discharge Medications: New amlodipine 5 mg Tablet 5 mg PO DAILY 30 Days Qty: 30 0RF Protocol: Hold for SBP< HOLD for SBP < : 90 trazodone 50 mg Tablet 50 mg PO BEDTIME PRN (Reason: Insomnia) 30 Days Qty: 30 0RF trazodone 50 mg Tablet 50 mg PO BEDTIME 30 Days Qty: 30 0RF docusate sodium 100 mg Capsule 100 mg PO BID PRN (Reason: Constipation) Qty: 60 0RF Invega Sustenna 117 mg/0.75 mL syringe 117 mg IM Q30D Qty: 0.75 2RF Rx Instructions: Next dose on Jul 17 2022 Invega Sustenna 117 mg/0.75 mL syringe 117 mg IM Q30D Qty: 0.75 2RF Rx Instructions: Next dose 07/17/2022 Continued multivitamin Tablet 1 tab PO DAILY Qty: 30 0RF atorvastatin 40 mg Tablet 40 mg PO DAILY 30 Days Qty: 30 0RF acetaminophen 325 mg Tablet 975 mg PO Q6H PRN (Reason: Pain, Mild) Qty: 90 0RF omeprazole 20 mg Capsule,Delayed Release(Dr/Ec) 20 mg PO DAILY 30 Days Qty: 30 0RF aspirin 81 mg Tablet,Chewable 81 mg PO DAILY Qty: 30 0RF cholecalciferol (vitamin D3) 250 mcg (10,000 unit) Capsule 250 mcg PO DAILY Qty: 30 0RF fluticasone furoate 50 mcg/actuation Blister With Device 50 mcg INHALATION BID Qty: 30 0RF Discontinued docusate sodium 50 mg Tablet 50 mg PO BID PRN (Reason: Constipation) cephalexin 500 mg Capsule 500 mg PO BID Rx Instructions: STOP DATE 06/09/2022 ibuprofen 600 mg Tablet 600 mg PO Q6H PRN (Reason: PAIN, MODERATE) risperidone 0.5 mg Tablet 0.5 mg PO BEDTIME risperidone 0.5 mg Tablet 0.5 mg PO BID PRN (Reason: Agitation) oxycodone 5 mg Tablet 5 mg PO Q6H PRN (Reason: Pain, Severe) Discharge Orders: Discharge Order (Routine); Ordered 06/25/22 Ordered By: Davis Jiang Diet: Advance to usual diet Activity on Discharge: As tolerated Stand Alone Forms: Patient Portal Discharge page Care Plan Goals: Care plan goals achieved in this admission Health Concerns: Continue treatment with primary care physician Plan of Treatment: Continue medication management as an outpatient Assessment: Elderly female with a long history of bipolar disorder with several prior admissions into the hospital for psychotic decompensation with cony due to noncompliance and inability to access long-acting injectables. Currently safe in the community. Euthymic and ready for discharge
--- NOTE | 2022-06-25 10:33 | PC.NURSE ---
reviewed discharge paperwork with pt, Pt A+Ox4, pt verbalized understanding and readiness for discharge. Follow-up appointment scheduled with all providers. Pt escorted off unit by staff, greeted by . Pt denies SI/HI, no issues noted or reported.
== END 2022-06-25 10:30 | disposition home or self-care (01) | DRG 885 ==
PROVIDERS: Social Worker; Admitting Provider Psychiatry & Neurology Psychiatry; Visit Provider Psychiatry & Neurology Psychiatry
DX: F31.2 Bipolar disorder, current episode manic severe with psychotic features (principal); N39.0 Urinary tract infection, site not specified; F05 Delirium due to known physiological condition; I25.10 Atherosclerotic heart disease of native coronary artery without angina pectoris; K21.9 Gastro-esophageal reflux disease without esophagitis; I10 Essential (primary) hypertension; Z91.148 Patient's other noncompliance with medication regimen for other reason; Z86.73 Personal history of transient ischemic attack (TIA), and cerebral infarction without residual deficits; Z88.0 Allergy status to penicillin; Z88.8 Allergy status to other drugs, medicaments and biological substances; Z79.51 Long term (current) use of inhaled steroids; Z79.82 Long term (current) use of aspirin; Z79.899 Other long term (current) drug therapy
CPT/HCPCS: 36415; 80048; 80053; 80061; 80076; 82607; 82746; 83036; 84443; 85025; J2426

== ENCOUNTER 2023-01-13 08:19 | Inpatient (IN) | payer MEDICARE, SELFPAY ==
--- NOTE | ~2023-01-13 | XR_ITS ---
EXAMINATION: XR CHEST CLINICAL INFORMATION: Former medical clearance. COMPARISON: None available. TECHNIQUE: Frontal view of the chest was obtained. FINDINGS: The lungs are well-expanded and clear. The heart size and pulmonary vascularity is normal. There is mild ectasia of the right brachiocephalic artery producing. There is a right superior paramediastinal soft tissue swelling likely ectatic vessel. There is moderate right lateral spondylosis throughout dorsal spine. No other bony and the abnormality seen. XR/XR chest 1V IMPRESSION: No acute cardiopulmonary process seen.
[2023-01-13 08:49] VITALS: BP 154/90; BP 169/92; PULSE 120; PULSE 92; RESP 18; TEMP 36.9; O2SAT 94; O2SAT 96; BMI 24.2
--- NOTE | 2023-01-13 08:50 | ECG_ITS ---
Test Reason : checkqt Blood Pressure : / mmHG Vent. Rate : 086 BPM Atrial Rate : 086 BPM P-R Int : 166 ms QRS Dur : 070 ms QT Int : 378 ms P-R-T Axes : 051 -07 020 degrees QTc Int : 452 ms Sinus rhythm with Premature atrial complexes Otherwise normal ECG When compared with ECG of 02-JUN-2017 15:35, No significant change was found Referred By: Jen Caldera Electronically Signed By:CINDI MOYA MD
--- NOTE | 2023-01-13 08:56 | ED_ITS ---
HPI - Psych General Chief Complaint: Psychiatric Symptoms Stated Complaint: STS MANIC EPISODE X2 WKS PER EMS Time Seen by Provider: 01/13/23 08:48 Source: patient and EMS Mode of arrival: EMS Limitations: no limitations History of Present Illness HPI Narrative: a 77-year-old female with known longstanding history of bipolar disorder with multiple psych related hospitalization patient is not compliant with her medication, called EMS to bring her to the hospital since patient is representing atypical symptoms of her manic bipolar. Patient otherwise declined headache, neck pain, CP, SOB, abdominal pain, nausea vomiting, diarrhea. Patient admitted to not using her medication, declined drinking alcohol or using any recreational drugs. Related Data Previous Rx's Medication Instructions Recorded acetaminophen 325 mg tablet 975 mg (3 x 325 mg) PO Q6H PRN 06/25/22 Pain, Mild #90 tabs amlodipine 5 mg tablet 5 mg PO DAILY 30 days #30 tabs 06/25/22 aspirin 81 mg chewable tablet 81 mg PO DAILY #30 tabs 06/25/22 atorvastatin 40 mg tablet 40 mg PO DAILY 30 days #30 tabs 06/25/22 cholecalciferol (vitamin D3) 250 250 mcg PO DAILY #30 caps 06/25/22 mcg (10,000 unit) capsule docusate sodium 100 mg capsule 100 mg PO BID PRN Constipation #60 06/25/22 caps fluticasone furoate 50 50 mcg inhalation BID #30 ea 06/25/22 mcg/actuation blister powder for inhalation multivitamin 1 tab PO DAILY #30 tabs 06/25/22 omeprazole 20 mg capsule,delayed 20 mg PO DAILY 30 days #30 caps 06/25/22 release paliperidone palmitate 117 mg/0.75 117 mg (0.75 mL) IM Q30D #0.75 mL 06/25/22 mL intramuscular syringe (Invega Sustenna) paliperidone palmitate 117 mg/0.75 117 mg (0.75 mL) IM Q30D #0.75 mL 06/25/22 mL intramuscular syringe (Invega Sustenna) trazodone 50 mg tablet 50 mg PO BEDTIME 30 days #30 tabs 06/25/22 trazodone 50 mg tablet 50 mg PO BEDTIME PRN Insomnia 30 06/25/22 days #30 tabs Allergies Allergy/AdvReac Type Severity Reaction Status Date / Time Penicillins [PENICILLINS] Allergy Severe HIVES Unverified 06/05/22 15:19 bee pollen [BEE STINGS] Allergy Unknown RASH Unverified 11/09/19 18:41 cortisone [CORTISONE] Allergy Unknown RASH Unverified 11/09/19 18:41 penicillin V Allergy Unknown rash Verified 08/07/19 00:00 Chocolate AdvReac Vomiting Verified 06/05/22 15:19 Benadryl Allergy Mild Vomiting Uncoded 06/05/22 15:19 bees Allergy Unknown swells up Uncoded 08/07/19 00:00 Review of Systems Review of Systems: All other systems are reviewed and are negative Constitutional: Reports as per HPI and Reports no additional constitutional co mplaints Eyes: Reports as per HPI and Reports no additional eye complaints Reports system reviewed and no additional complaints, except as documented Cardiovascular: Reports as per HPI and Reports no additional cardiovascular complaints Respiratory: Reports as per HPI and Reports no additional respiratory complaints Gastrointestinal: Reports as per HPI and Reports no additional gastrointestinal complaints Genitourinary: Reports no additional female genitourinary complaints Musculoskeletal: Reports no additional musculoskeletal complaints Skin/Breast: Reports system reviewed and no additional complaints, except as docu Psychiatric: Reports no additional psychiatric complaints Endocrine: Reports no additional endocrine complaints Hematologic/Lymphatic: Reports no additional hematologic/lymphatic complaints Allergic/Immunologic: Reports no additional allergic/immunologic complaints Reports system reviewed and no additional complaints, except as documented and Reports Abnormal speech present [facility] Past Medical History Medical History Osteopenia Vertigo Thalamic hemorrhage with stroke History of CVA (cerebrovascular accident) Colon polyp GERD (gastroesophageal reflux disease) HLD (hyperlipidemia) HTN (hypertension) History of diverticulitis Chronic low back pain Osteoarthritis Social History Household Members: Spouse Do you presently have visiting nurse or other home services: No Patient Tobacco Use Status: Never used Tobacco e-Cigarette/Vaping Use: Never Used Second Hand Smoke Exposure: No Advance Directives Date on File: 06/26/22 service: No Sexual orientation: Straight/Heterosexual Physical Exam Vital Signs: Vital Signs: Last Vital Signs Temp 98.5 F 01/13/23 08:49 Pulse 92 01/13/23 08:49 Resp 18 01/13/23 08:49 BP 169/92 H 01/13/23 08:49 Pulse Ox 96 01/13/23 08:49 O2 Del Method Room Air 01/13/23 08:49 BMI result Body Mass Index 24.2 Appearance: Alert. Oriented X3. No acute distress. Head: Normal external exam. Normocephalic. Atraumatic. No Kong signs noted. No raccoon eyes noted Eyes: PERRLA. EOMI. Conjunctiva and sclera normal. Eyelids normal. ENT: TM's Normal. Pharynx normal. Uvula midline. Moist mucous membranes. No trismus noted. No drooling noted. No muffled voice noted. Neck: Normal inspection. Neck supple. FROM. No adenopathy. Thyroid Normal. No meningeal signs. No neck mass noted. CVS: Normal heart rate and rhythm. Heart sound normal. No murmurs noted. Pulses normal throughout. Respiratory: No respiratory distress. Painless inspiration. Breath sounds normal. No wheezes/rales/rhonchi noted. Chest nontender. No accessory muscle usage noted or decreased air movement noted. Abdomen: Soft and nontender. Bowel sounds normal in all 4 quadrants. No distention noted. No organomegaly noted. No visible injury noted. Back: No CVA tenderness. Full range of motion noted. Skin: Skin warm and dry. Normal skin color. Normal skin turgor. No rashes/lesions/lacerations noted. Extremities: No lower extremity edema. Extremities exhibit normal range of motion. Extremities nontender. Neuro: Oriented X 3. Cranial nerve exam: II-XII are grossly intact No motor Deficit. Patient Orientation: Person, Place, Time and Situation, okay hygiene and grooming. Fair eye contact, attentive, no tics or tremors. Level of Consciousness: Awake, Appropriate and Alert Patient Behavior: Appropriate, Guarded, Cooperative and Anxious Mood Description: Constricted, Blunted and Apprehensive Affect Description: Constricted, Blunted and Apprehensive Patient Cognition Impaired: No Ability to Follow Directions: Excellent Speech Pattern: pressure speech, spontaneous with regular rate and rhythm, normal volume and prosody. No dysarthria. Memory Description: Intact, Immediate Intact and Short Term Intact Hallucinations: None Delusions: Not Present Thought Process: Intact Thought Content: positive for Intact, positive for Logical, denies Suicidal Ideation and denies Homicidal Ideation. Depressive Symptoms: Not present. Judgement and Insight: Limited but adequate. Course Course Course Narrative: a 77-year-old female history of bipolar disorder came in with manic phase in contest of noncompliance with her medication. will obtain care team consultation. Medical Decision Making Differential Diagnosis Differential Diagnoses: The differential diagnosis associated with the presentation includes ( [place], electrolyte abnormalities, severe anemia, medical clearance.) Admission/Observation Consideration of admission/observation: Escalation of care including admission/observation considered Lab Data MDM Lab Attestation statement: I reviewed the patient's lab results. Discharge Plan Discharge Clinical Impression: Bipolar disorder Patient Disposition: Still a Patient Prescriptions: No Action amlodipine 5 mg Tablet 5 mg PO DAILY 30 Days Qty: 30 0RF Protocol: Hold for SBP< HOLD for SBP < : 90 trazodone 50 mg Tablet 50 mg PO BEDTIME PRN (Reason: Insomnia) 30 Days Qty: 30 0RF trazodone 50 mg Tablet 50 mg PO BEDTIME 30 Days Qty: 30 0RF docusate sodium 100 mg Capsule 100 mg PO BID PRN (Reason: Constipation) Qty: 60 0RF multivitamin Tablet 1 tab PO DAILY Qty: 30 0RF atorvastatin 40 mg Tablet 40 mg PO DAILY 30 Days Qty: 30 0RF acetaminophen 325 mg Tablet 975 mg PO Q6H PRN (Reason: Pain, Mild) Qty: 90 0RF omeprazole 20 mg Capsule,Delayed Release(Dr/Ec) 20 mg PO DAILY 30 Days Qty: 30 0RF aspirin 81 mg Tablet,Chewable 81 mg PO DAILY Qty: 30 0RF cholecalciferol (vitamin D3) 250 mcg (10,000 unit) Capsule 250 mcg PO DAILY Qty: 30 0RF fluticasone furoate 50 mcg/actuation Blister With Device 50 mcg INHALATION BID Qty: 30 0RF Invega Sustenna 117 mg/0.75 mL syringe 117 mg IM Q30D Qty: 0.75 2RF Rx Instructions: Next dose on Jul 17 2022 Invega Sustenna 117 mg/0.75 mL syringe 117 mg IM Q30D Qty: 0.75 2RF Rx Instructions: Next dose 07/17/2022
[2023-01-13 09:16] LABS: MANUAL DIFF FLAG NO
[2023-01-13 09:26] LABS: Basophils Absolute Auto 0.1 X10*3/uL (0.0-0.2); Basophils Percent Auto 1.3 % (0-2); Eosinophils Absolute Auto 0.1 X10*3/uL (0.0-0.4); Eosinophils Percent Auto 1.5 % (0-4); Hematocrit 38.6 % (37.0-47.0); Imm Gran Abs Auto 0.01 X10*3/uL (0.00-0.03); Imm Gran Pct Auto 0.2 % (0.0-0.4); Lymphocytes Absolute Auto 1.6 X10*3/uL (1.2-4.9); Lymphocytes Percent Auto 31.2 % (20-40); Mean Corpuscular HGB Conc 33.7 g/dl (31.0-35.0); Mean Corpuscular Hemoglobin 29.9 pg (27.0-33.0); Mean Corpuscular Volume 88.7 fL (80.0-98.0); Mean Platelet Volume 11.4 fL (9.4-12.3); Monocytes Absolute Auto 0.4 X10*3/uL (0.1-1.2); Monocytes Percent Auto 7.6 % (2-11); Neutrophils Percent Auto 58.2 % (45-73); Platelet Count 233 X10*3/uL (160-400); Red Blood Count 4.35 X10*6/uL (4.20-5.50); Red Cell Distribution Width 13.8 % (11.0-16.0); White Blood Count 5.2 X10*3/uL (4.8-10.8)
[2023-01-13 09:41] LABS: Alanine Aminotransferase 35 U/L (0-31); Albumin Level 3.9 g/dL (3.5-5.0); Alkaline Phosphatase 69 U/L (39-117); Anion Gap 10 (12-20); Aspartate Amino Transferase 34 U/L (5-31); Bilirubin Direct 0.2 mg/dL (0.0-0.5); Bilirubin Total 0.4 mg/dL (0.0-1.0); Blood Urea Nitrogen 16 mg/dL (9-16); Carbon Dioxide 27 mmol/L (22-29); Chloride 108 mmol/L (96-108); Creatinine Clr Calc Pharmacy 56.9; Estimated Glomerular Filt Rate > 60; Glucose Random 160 mg/dL (60-115); Lipase 57 U/L (8-78); Potassium 3.8 mmol/L (3.3-5.1); Sodium 141 mmol/L (135-145)
[2023-01-13 09:47] LABS: Appearance Urine Cloudy; Color Urine Yellow; Glucose Urine UA Negative (Negative); Leukocyte Esterase Urine Moderate (2+) (Negative); Nitrite Urine Negative (Negative); PH 6.5 (5.0-9.0); Specific Gravity - Urine 1.015 (1.005-1.025); UMIC TRIGGER UACC YES; Urine Blood Negative (Negative); Urine Ketones Negative (Negative); Urine Protein Negative (Neg-Trace)
[2023-01-13 09:51] LABS: Bacteria Urine None Seen (None Seen); Hyaline Casts Urine 0-2 /LPF (0-2); Squamous Epithelial Cell Urine 0-2 /HPF (0-2); UACC Culture Trigger YES
[2023-01-13 09:52] LABS: Amphetamine Screen Urine Not Detected (Not Detect); Barbiturates, Urine Not Detected (Not Detect); Benzodiazepines Screen Urine Not Detected (Not Detect); Cannabinoid Screen Urine Not Detected (Not Detect); Cocaine Screen Urine Not Detected (Not Detect); Fentanyl, urine Not Detected (Not Detect); Opiate Screen Urine Not Detected (Not Detect); Phencyclidine Screen Urine Not Detected (Not Detect)
--- NOTE | 2023-01-13 12:13 | PC.NURSE ---
patient confused refused po meds, talking at television about [facility], [place],
[2023-01-13 13:35] LABS: COVID-19 Test Negative (Negative); IDNOW Serial# 9DB6401D
[2023-01-13 18:02] VITALS: BP 159/85; PULSE 102; RESP 16; TEMP 36.1
[2023-01-13 18:03] VITALS: BMI 20.1
--- NOTE | 2023-01-13 18:53 | PC.ADMIT ---
Татьяна is a 77 year old female who was admitted at 1715 from [facility] for treatment of Bipolar Disorder Unspecified. Patient was BIBA initiated by her who was concerned of displaying manic symptoms. reported patients recent cessation of Invega d/t concerns that the medication was causing lack of appetite (loss of 30lb).Since med change, patient's sleep has been poor and states she rests, but does not really sleep . Reported from [facility] that UA was completed and came back positive for UTI, patient refused to take antibiotics or any other medication and stated I'm allergic to all pills . When Татьяна arrived to the unit, she appeared disheveled and oriented only to self. Due to increased confusion, patient was unable to answer admission questions appropriately or sign paperwork. Speech nonsensical, tangential and thought process disorganized. Sharps check completed with another nurse and patient is on a 1:1 for increased confusion.
[2023-01-13 19:30] VITALS: BP 174/84; PULSE 86; RESP 18; TEMP 36.6; O2SAT 98
[2023-01-13] MEDS: cefuroxime axetiL 500 MG TABLET PO (20:22)
[2023-01-14 07:00] VITALS: BMI 21.7
[2023-01-14] MEDS: cefuroxime axetiL 500 MG TABLET PO ×2 (08:16→21:27)
[2023-01-14 08:30] VITALS: BP 152/82; PULSE 90; TEMP 36.5; O2SAT 96
[2023-01-14 09:08] LABS: Alanine Aminotransferase 40 U/L (0-31); Albumin Level 4.3 g/dL (3.5-5.0); Alkaline Phosphatase 73 U/L (39-117); Anion Gap 14 (12-20); Aspartate Amino Transferase 38 U/L (5-31); Bilirubin Total 0.7 mg/dL (0.0-1.0); Blood Urea Nitrogen 14 mg/dL (9-16); Calcium 10.4 mg/dL (8.4-10.2); Carbon Dioxide 26 mmol/L (22-29); Chloride 104 mmol/L (96-108); Creatinine Clr Calc Pharmacy 49.8; Estimated Glomerular Filt Rate > 60; Glucose Fasting 109 mg/dL (60-99); Potassium 4.4 mmol/L (3.3-5.1); Sodium 140 mmol/L (135-145); Total Protein 7.7 g/dL (6.5-8.0)
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
[2023-01-14 20:20] VITALS: BP 134/62; PULSE 99; RESP 18; TEMP 36.6; O2SAT 97
[2023-01-14] MEDS: OLANZapine 5 MG TABLET PO (21:27)
[2023-01-15 07:35] VITALS: BP 135/82; PULSE 109; TEMP 36.2; O2SAT 97
[2023-01-15] MEDS: cefuroxime axetiL 500 MG TABLET PO ×2 (07:56→20:33)
--- NOTE | 2023-01-15 08:52 | HO.PSYCHPN ---
Subjective Subjective Date of Service: 01/15/23 Reason For Visit: Dysregulated Subjective Notes: Conditional Voluntary Interim History: Pt slept through the night. She was started on olanzapine last night and taking medication. She is doing a puzzle. She is on 1 to 1 due to some intrusive behaviors. She asks about breakfast. She reports she is doing great! She denies SI/HI. Her attention is somewhat disruptive which suspect due to underlying internally preoccupied. She is overly friendly with her one to one. No insight into mental illness or need for treatment. No behavioral concerns. Pt is fully oriented to place, month, year and date. Mental Status Exam Mental Status Exam Narrative: Appearance:wearing hospital gown, fair hygiene, in NAD behavior:cooperative Psychomotor: no agitation or retardation noted Speech:clear, some delayed of response at times, spontaneous TP:flight of ideas TC:wanting breakfast Mood: great Affect:expansive SI:denies HI:denies VH/AH:some delayed response maybe indicating some psychosis but denies when asked Delusions:no overt delusional content noted or reported Insight/judgment:impaired x 2. memory/cog: alert, oriented x 3. some gaps in memory when providing hx of treatment and other information but not formally tested. Diagnostics Vital Signs (24Hr): Vital Signs - 24 hr 01/14/23 20:20 01/15/23 07:35 Temperature 97.9 F 97.2 F Pulse Rate 99 109 H Respiratory Rate 18 Blood Pressure 134/62 135/82 Pulse Oximetry 97 97 Oxygen Delivery Method Room Air Room Air BMI result Body Mass Index 21.7 Labs 01/13/23 09:09 01/14/23 08:27 Labs: Laboratory Results - last 48 hr 01/13/23 01/13/23 01/13/23 09:09 09:10 09:38 WBC 5.2 RBC 4.35 Hgb 13.0 Hct 38.6 MCV 88.7 MCH 29.9 MCHC 33.7 RDW 13.8 Plt Count 233 MPV 11.4 Immature Gran % (Auto) 0.2 Neut % (Auto) 58.2 Lymph % (Auto) 31.2 [place] % (Auto) 7.6 Eos % (Auto) 1.5 Baso % (Auto) 1.3 Lymph # (Auto) 1.6 [place] # (Auto) 0.4 Eos # (Auto) 0.1 Baso # (Auto) 0.1 Abs Immat Gran (auto) 0.01 Absolute Neuts (auto) 3.0 Absolute Nucleated RBC 0.000 Nucleated RBC % (auto) 0.0 Sodium 141 Potassium 3.8 Chloride 108 Carbon Dioxide 27 Anion Gap 10 L BUN 16 Creatinine 0.75 Estim Creat Clear Calc 56.9 Estimated GFR > 60 Random Glucose 160 H Fasting Glucose Calcium 10.0 Total Bilirubin 0.4 Direct Bilirubin 0.2 AST 34 H ALT 35 H Alkaline Phosphatase 69 Total Protein 7.0 Albumin 3.9 Lipase 57 Urine Color Yellow Urine Appearance Cloudy Urine pH 6.5 Ur Specific [place] 1.015 Urine Protein Negative Urine Glucose (UA) Negative Urine Ketones Negative Urine Blood Negative Urine Nitrite Negative Ur Leukocyte Esterase Moderate (2+) H Urine RBC 3-5 H Urine WBC 11-20 H Ur Squamous Epith Cells 0-2 Urine Bacteria None Seen Hyaline Casts 0-2 Urine Opiates Screen Not Detected Urine Fentanyl Screen Not Detected Ur Barbiturates Screen Not Detected Ur Phencyclidine Scrn Not Detected Ur Amphetamines Screen Not Detected U Benzodiazepines Scrn Not Detected Urine Cocaine Screen Not Detected U Marijuana (THC) Screen Not Detected COVID-19 (VI) COVID-19 Clin Com 01/13/23 01/14/23 13:13 08:27 WBC RBC Hgb Hct MCV MCH MCHC RDW Plt Count MPV Immature Gran % (Auto) Neut % (Auto) Lymph % (Auto) [place] % (Auto) Eos % (Auto) Baso % (Auto) Lymph # (Auto) [place] # (Auto) Eos # (Auto) Baso # (Auto) Abs Immat Gran (auto) Absolute Neuts (auto) Absolute Nucleated RBC Nucleated RBC % (auto) Sodium 140 Potassium 4.4 Chloride 104 Carbon Dioxide 26 Anion Gap 14 BUN 14 Creatinine 0.79 Estim Creat Clear Calc 49.8 Estimated GFR > 60 Random Glucose Fasting Glucose 109 H Calcium 10.4 H Total Bilirubin 0.7 Direct Bilirubin AST 38 H ALT 40 H Alkaline Phosphatase 73 Total Protein 7.7 Albumin 4.3 Lipase Urine Color Urine Appearance Urine pH Ur Specific [place] Urine Protein Urine Glucose (UA) Urine Ketones Urine Blood Urine Nitrite Ur Leukocyte Esterase Urine RBC Urine WBC Ur Squamous Epith Cells Urine Bacteria Hyaline Casts Urine Opiates Screen Urine Fentanyl Screen Ur Barbiturates Screen Ur Phencyclidine Scrn Ur Amphetamines Screen U Benzodiazepines Scrn Urine Cocaine Screen U Marijuana (THC) Screen COVID-19 (VI) Negative COVID-19 Clin Com See Note Imaging Radiology Impressions: ITS Impressions Chest X-Ray 01/13/23 10:09 IMPRESSION: No acute cardiopulmonary process seen. Medications Medications Current Medications Acetaminophen (Acetaminophen 325 Mg Tablet) 650 mg PO Q6H PRN PRN Reason: Headache/Pain Mild Scale (1-3) Al Hydroxide/Mg Hydroxide (Magnesium Hydrox/Alum Hydrox 30 Ml Oral.Susp) 30 ml PO Q6H PRN PRN Reason: Heartburn/Nausea Cefuroxime Axetil (Cefuroxime Axetil 500 Mg Tablet) 500 mg PO BID [facility] Last Admin: 01/15/23 07:56 Dose: 500 mg Magnesium Hydroxide (Milk Of Magnesia 30 Ml Oral.Susp) 30 ml PO DAILY PRN PRN Reason: Constipation Olanzapine (Olanzapine 5 Mg Tablet) 5 mg PO BEDTIME [facility] Last Admin: 01/14/23 21:27 Dose: 5 mg Trazodone HCl (Trazodone Hcl 25 Mg Halftab) 25 mg PO BEDTIME MRX1 PRN PRN Reason: Insomnia Allergies Allergies Allergy/AdvReac Type Severity Reaction Status Date / Time Penicillins [PENICILLINS] Allergy Severe HIVES Unverified 06/05/22 15:19 bee pollen [BEE STINGS] Allergy Unknown RASH Unverified 11/09/19 18:41 cortisone [CORTISONE] Allergy Unknown RASH Unverified 11/09/19 18:41 penicillin V Allergy Unknown rash Verified 08/07/19 00:00 Chocolate AdvReac Vomiting Verified 06/05/22 15:19 Benadryl Allergy Mild Vomiting Uncoded 06/05/22 15:19 bees Allergy Unknown swells up Uncoded 08/07/19 00:00 Assessment & Plan Assessment & Plan (1) Bipolar disorder: Status: Acute Code(s): F31.9 - Bipolar disorder, unspecified Plan the patient is an elderly female with a past history of bipolar disorder, cardiovascular disease, stroke, other medical comorbidities admitted for a manic episode since the patient stopped her Invega Sustenna due to side effects. At this moment the patient is grossly manic with psychotic symptoms unable to take care of herself. Even though that she has psychotic she understood that she needs to be in the hospital. Plan 01/15 continue tx. may increase olanzapine to 7.5mg po qhs. VS stable. not unsteady gait but impulsive. Reason for continued inpatient stay Substantial Risk for: inability to function Time Spent With Patient Time: Total time managing care of this patient today ____ minutes.
--- NOTE | 2023-01-15 13:44 | PC.NURSE ---
[place] [facility] [place] 12[place]. Sincere updated via telephone.
[2023-01-15 18:00] VITALS: BP 145/76; PULSE 90; RESP 18; TEMP 36.8; O2SAT 97
[2023-01-15] MEDS: OLANZapine 5 MG TABLET PO (20:33)
[2023-01-16] MEDS: traZODone HCL 25 MG HALFTAB PO (00:51)
[2023-01-16] MEDS: Acetaminophen 325 MG TABLET 650 MG PO (00:53)
[2023-01-16 07:55] VITALS: BP 157/68; PULSE 88; RESP 18; TEMP 36.8; O2SAT 96
[2023-01-16] MEDS: cefuroxime axetiL 500 MG TABLET PO ×2 (08:12→20:39)
--- NOTE | 2023-01-16 09:57 | HO.PSYCHPN ---
Subjective Subjective Date of Service: 01/16/23 Reason For Visit: Dysregulated Interim History: met with patient. Discussed with Nursing. Overall very limited engagement with senior technical writer. Is however mobilizing around the unit. His touching things and hitting the table at times not in an aggressive manner. Did appear very paranoid with senior technical writer. This has been baseline behavior over the last week or so as per nursing. Is adherent with treatment. Medication Compliance: Yes Side effects from medications: No Attending Groups: No Review of Systems Acute medical concerns: No Review of Systems Review of Systems Yes Unobtainable due to mental status Mental Status Exam Mental Status Exam Narrative: Casually dressed and fair hygiene. Seen walking around the unit, touching the barton at times, hitting the tables but not in an aggressive manner. Paranoid with senior technical writer and would not engage in interview. Diagnostics Vital Signs (24Hr): Vital Signs - 24 hr 01/15/23 18:00 01/16/23 07:55 Temperature 98.3 F 98.2 F Pulse Rate 90 88 Respiratory Rate 18 18 Blood Pressure 145/76 H 157/68 H Pulse Oximetry 97 96 Oxygen Delivery Method Room Air Room Air BMI result Body Mass Index 21.7 Labs 01/13/23 09:09 01/14/23 08:27 Imaging Radiology Impressions: ITS Impressions Chest X-Ray 01/13/23 10:09 IMPRESSION: No acute cardiopulmonary process seen. Medications Medications Current Medications Acetaminophen (Acetaminophen 325 Mg Tablet) 650 mg PO Q6H PRN PRN Reason: Headache/Pain Mild Scale (1-3) Last Admin: 01/16/23 00:53 Dose: 650 mg Al Hydroxide/Mg Hydroxide (Magnesium Hydrox/Alum Hydrox 30 Ml Oral.Susp) 30 ml PO Q6H PRN PRN Reason: Heartburn/Nausea Cefuroxime Axetil (Cefuroxime Axetil 500 Mg Tablet) 500 mg PO BID [facility] Last Admin: 01/16/23 08:12 Dose: 500 mg Magnesium Hydroxide (Milk Of Magnesia 30 Ml Oral.Susp) 30 ml PO DAILY PRN PRN Reason: Constipation Olanzapine (Olanzapine 5 Mg Tablet) 5 mg PO BEDTIME [facility] Last Admin: 01/15/23 20:33 Dose: 5 mg Trazodone HCl (Trazodone Hcl 25 Mg Halftab) 25 mg PO BEDTIME MRX1 PRN PRN Reason: Insomnia Last Admin: 01/16/23 00:51 Dose: 25 mg Allergies Allergies Allergy/AdvReac Type Severity Reaction Status Date / Time Penicillins [PENICILLINS] Allergy Severe HIVES Unverified 06/05/22 15:19 bee pollen [BEE STINGS] Allergy Unknown RASH Unverified 11/09/19 18:41 cortisone [CORTISONE] Allergy Unknown RASH Unverified 11/09/19 18:41 penicillin V Allergy Unknown rash Verified 08/07/19 00:00 Chocolate AdvReac Vomiting Verified 06/05/22 15:19 Benadryl Allergy Mild Vomiting Uncoded 06/05/22 15:19 bees Allergy Unknown swells up Uncoded 08/07/19 00:00 Assessment & Plan Assessment & Plan (1) Bipolar disorder: Status: Acute Code(s): F31.9 - Bipolar disorder, unspecified Plan the patient is an elderly female with a past history of bipolar disorder, cardiovascular disease, stroke, other medical comorbidities admitted for a manic episode since the patient stopped her Invega Sustenna due to side effects. At this moment the patient is grossly manic with psychotic symptoms unable to take care of herself. Even though that she has psychotic she understood that she needs to be in the hospital. Plan 01/15 continue tx. may increase olanzapine to 7.5mg po qhs. VS stable. not unsteady gait but impulsive. 01/16/2023: No changes to current regimen - might increase olanzapine as per primary team. Reason for continued inpatient stay Substantial Risk for: inability to function Time Spent With Patient Time: Total time managing care of this patient today ____ minutes.
[2023-01-16 18:00] VITALS: BP 155/72; PULSE 100; RESP 18; TEMP 36.9; O2SAT 96
[2023-01-16] MEDS: OLANZapine 5 MG TABLET PO (20:39)
[2023-01-17] MEDS: traZODone HCL 25 MG HALFTAB PO ×2 (02:01→21:28)
[2023-01-17] MEDS: Acetaminophen 325 MG TABLET 650 MG PO (02:37)
[2023-01-17 07:55] VITALS: BP 140/70; PULSE 98; RESP 20; TEMP 36.8; O2SAT 97
[2023-01-17] MEDS: cefuroxime axetiL 500 MG TABLET PO ×2 (08:07→20:27)
--- NOTE | 2023-01-17 14:24 | HO.PSYCHPN ---
Subjective Subjective Date of Service: 01/17/23 Reason For Visit: Dysregulated Interim History: Seen in [facility] area. More engagement today. Sleep ok. Non sensical thought pattern without agitation: stated she was here to help other patients here, gave her social security number, then talked about pushing buttons and getting food. O Is adherent with treatment. Medication Compliance: Yes Side effects from medications: No Attending Groups: Intermittent Review of Systems Acute medical concerns: No Review of Systems Review of Systems unremarkable Mental Status Exam Mental Status Exam Narrative: Casually dressed and fair hygiene. Seen walking around the unit, touching the barton at times, illogical thinking, paranoid. No aggression. No evidence of SI/HI. Insight poor. Diagnostics Vital Signs (24Hr): Vital Signs - 24 hr 01/16/23 18:00 01/17/23 07:55 Temperature 98.5 F 98.2 F Pulse Rate 100 98 Respiratory Rate 18 20 Blood Pressure 155/72 H 140/70 H Pulse Oximetry 96 97 Oxygen Delivery Method Room Air Room Air BMI result Body Mass Index 21.7 Labs 01/13/23 09:09 01/14/23 08:27 Imaging Radiology Impressions: ITS Impressions Chest X-Ray 01/13/23 10:09 IMPRESSION: No acute cardiopulmonary process seen. Medications Medications Current Medications Acetaminophen (Acetaminophen 325 Mg Tablet) 650 mg PO Q6H PRN PRN Reason: Headache/Pain Mild Scale (1-3) Last Admin: 01/17/23 02:37 Dose: 650 mg Al Hydroxide/Mg Hydroxide (Magnesium Hydrox/Alum Hydrox 30 Ml Oral.Susp) 30 ml PO Q6H PRN PRN Reason: Heartburn/Nausea Cefuroxime Axetil (Cefuroxime Axetil 500 Mg Tablet) 500 mg PO BID [facility] Last Admin: 01/17/23 08:07 Dose: 500 mg Magnesium Hydroxide (Milk Of Magnesia 30 Ml Oral.Susp) 30 ml PO DAILY PRN PRN Reason: Constipation Olanzapine (Olanzapine 5 Mg Tablet) 5 mg PO BEDTIME [facility] Last Admin: 01/16/23 20:39 Dose: 5 mg Trazodone HCl (Trazodone Hcl 25 Mg Halftab) 25 mg PO BEDTIME MRX1 PRN PRN Reason: Insomnia Last Admin: 01/17/23 02:01 Dose: 25 mg Allergies Allergies Allergy/AdvReac Type Severity Reaction Status Date / Time Penicillins [PENICILLINS] Allergy Severe HIVES Unverified 06/05/22 15:19 bee pollen [BEE STINGS] Allergy Unknown RASH Unverified 11/09/19 18:41 cortisone [CORTISONE] Allergy Unknown RASH Unverified 11/09/19 18:41 penicillin V Allergy Unknown rash Verified 08/07/19 00:00 Chocolate AdvReac Vomiting Verified 06/05/22 15:19 Benadryl Allergy Mild Vomiting Uncoded 06/05/22 15:19 bees Allergy Unknown swells up Uncoded 08/07/19 00:00 Assessment & Plan Assessment & Plan (1) Bipolar disorder: Status: Acute Code(s): F31.9 - Bipolar disorder, unspecified Plan the patient is an elderly female with a past history of bipolar disorder, cardiovascular disease, stroke, other medical comorbidities admitted for a manic episode since the patient stopped her Invega Sustenna due to side effects. At this moment the patient is grossly manic with psychotic symptoms unable to take care of herself. Even though that she has psychotic she understood that she needs to be in the hospital. Plan 01/15 continue tx. may increase olanzapine to 7.5mg po qhs. VS stable. not unsteady gait but impulsive. 01/17/2023: No changes to current regimen - might increase olanzapine as per primary team. Reason for continued inpatient stay Substantial Risk for: inability to function Time Spent With Patient Time: Total time managing care of this patient today ____ minutes.
[2023-01-17 18:00] VITALS: BP 151/75; PULSE 73; RESP 16; TEMP 36.8; O2SAT 97
[2023-01-17] MEDS: OLANZapine 5 MG TABLET PO (20:27)
[2023-01-18 08:00] VITALS: BP 140/63; PULSE 88; RESP 18; TEMP 36.9; O2SAT 96
[2023-01-18] MEDS: cefuroxime axetiL 500 MG TABLET PO ×2 (08:33→20:59)
--- NOTE | 2023-01-18 11:54 | PC.NURSE ---
Татьяна says, she has had the flu shot. She said, her keeps all the records.
--- NOTE | 2023-01-18 13:35 | P.PNPSI_ITS ---
Subjective Subjective Date of Service: 01/18/23 Reason For Visit: Dysregulated Subjective Notes: Conditional Voluntary Interim History: The nursing staff reported the patient had been guarded labile, she has not attend 20 groups and she slept 7 hours. On interview the patient remains confused, labile with racing thoughts. We decided to increase Zyprexa to 7.5. I spoke with her and the patient and they want to change outpaitient clinics. Mental Status Exam Mental Status Exam Patient Appearance: Well Grooomed and Appropriate Patient Orientation: Person and Situation Level of Consciousness: Awake and Appropriate Patient Behavior: Guarded and Passive Mood Description: Withdrawn Affect Description: Constricted and Labile Patient Cognition Impaired: Yes Ability to Follow Directions: Fair Speech Pattern: Clear Hallucinations: None Delusions: Grandiose and Ideas of Reference Thought Process: Distracted and Slowed Thinking Thought Content: positive for [place], positive for Circumstantial and positive for Disorganized Judgement: Poor Diagnostics Vital Signs (24Hr): Vital Signs - 24 hr 01/17/23 18:00 01/18/23 08:00 Temperature 98.2 F 98.4 F Pulse Rate 73 88 Respiratory Rate 16 18 Blood Pressure 151/75 H 140/63 H Pulse Oximetry 97 96 Oxygen Delivery Method Room Air Room Air BMI result Body Mass Index 21.7 Labs 01/13/23 09:09 01/14/23 08:27 Imaging Radiology Impressions: ITS Impressions Chest X-Ray 01/13/23 10:09 IMPRESSION: No acute cardiopulmonary process seen. Medications Medications Current Medications Acetaminophen (Acetaminophen 325 Mg Tablet) 650 mg PO Q6H PRN PRN Reason: Headache/Pain Mild Scale (1-3) Last Admin: 01/17/23 02:37 Dose: 650 mg Al Hydroxide/Mg Hydroxide (Magnesium Hydrox/Alum Hydrox 30 Ml Oral.Susp) 30 ml PO Q6H PRN PRN Reason: Heartburn/Nausea Cefuroxime Axetil (Cefuroxime Axetil 500 Mg Tablet) 500 mg PO BID [facility] Last Admin: 01/18/23 08:33 Dose: 500 mg Magnesium Hydroxide (Milk Of Magnesia 30 Ml Oral.Susp) 30 ml PO DAILY PRN PRN Reason: Constipation Olanzapine (Olanzapine 7.5 Mg Tablet) 7.5 mg PO BEDTIME SHAR Trazodone HCl (Trazodone Hcl 25 Mg Halftab) 25 mg PO BEDTIME MRX1 PRN PRN Reason: Insomnia Last Admin: 01/17/23 21:28 Dose: 25 mg Allergies Allergies Allergy/AdvReac Type Severity Reaction Status Date / Time Penicillins [PENICILLINS] Allergy Severe HIVES Unverified 06/05/22 15:19 bee pollen [BEE STINGS] Allergy Unknown RASH Unverified 11/09/19 18:41 cortisone [CORTISONE] Allergy Unknown RASH Unverified 11/09/19 18:41 penicillin V Allergy Unknown rash Verified 08/07/19 00:00 Chocolate AdvReac Vomiting Verified 06/05/22 15:19 Benadryl Allergy Mild Vomiting Uncoded 06/05/22 15:19 bees Allergy Unknown swells up Uncoded 08/07/19 00:00 Assessment & Plan Assessment & Plan (1) Bipolar disorder: Status: Acute Code(s): F31.9 - Bipolar disorder, unspecified Plan the patient is an elderly female with a past history of bipolar disorder, cardiovascular disease, stroke, other medical comorbidities admitted for a manic episode since the patient stopped her Invega Sustenna due to side effects. At this moment the patient is grossly manic with psychotic symptoms unable to take care of herself. Even though that she has psychotic she understood that she needs to be in the hospital. Plan 1. Very increasing Zyprexa to 7.5 mg p.o. q.h.s. on January 18. 2. We will gather collateral information, will call her . For a family meeting pretty soon Reason for continued inpatient stay Substantial Risk for: inability to function, rapid decompensation and med/psych decompensation Time Spent With Patient Time: Total time managing care of this patient today __20__ minutes.
[2023-01-18 14:10] VITALS: BMI 21.7
[2023-01-18] MEDS: Acetaminophen 325 MG TABLET 650 MG PO (18:21)
[2023-01-18 20:09] VITALS: BP 148/81; PULSE 85; RESP 18; TEMP 36.4; O2SAT 96
[2023-01-18] MEDS: OLANZapine 7.5 MG TABLET PO (20:59)
[2023-01-18] MEDS: traZODone HCL 25 MG HALFTAB PO (20:59)
[2023-01-19 08:00] VITALS: BP 144/67; PULSE 67; RESP 18; TEMP 36.6; O2SAT 98
[2023-01-19] MEDS: cefuroxime axetiL 500 MG TABLET PO ×2 (08:15→21:03)
--- NOTE | 2023-01-19 12:01 | HO.PSYCHPN ---
Subjective Subjective Date of Service: 01/19/23 Reason For Visit: Dysregulated Subjective Notes: Conditional Voluntary Interim History: The nursing staff reported the patient had attended to groups her affect was flat and guarded. On interview the patient remains with flight of ideas, racing thoughts and inappropriate disinhibited behavior. She slept 7 hours with the change of medications. We will keep Zyprexa 7.5 mg p.o. q.h.s. for the meantime. Mental Status Exam Mental Status Exam Patient Appearance: Appropriate Patient Orientation: Person Level of Consciousness: Awake Patient Behavior: Guarded and Restless Mood Description: Labile Affect Description: Suspicious and Constricted Patient Cognition Impaired: Yes Ability to Follow Directions: Good Speech Pattern: Clear Hallucinations: None Delusions: Grandiose and Ideas of Reference Thought Process: Distracted and Slowed Thinking Thought Content: positive for [place] and positive for Circumstantial Judgement: Fair Diagnostics Vital Signs (24Hr): Vital Signs - 24 hr 01/18/23 20:09 01/19/23 08:00 Temperature 97.6 F 97.9 F Pulse Rate 85 67 Respiratory Rate 18 18 Blood Pressure 148/81 H 144/67 H Pulse Oximetry 96 98 Oxygen Delivery Method Room Air Room Air BMI result Body Mass Index 21.7 Labs 01/13/23 09:09 01/14/23 08:27 Imaging Radiology Impressions: ITS Impressions Chest X-Ray 01/13/23 10:09 IMPRESSION: No acute cardiopulmonary process seen. Medications Medications Current Medications Acetaminophen (Acetaminophen 325 Mg Tablet) 650 mg PO Q6H PRN PRN Reason: Headache/Pain Mild Scale (1-3) Last Admin: 01/18/23 18:21 Dose: 650 mg Al Hydroxide/Mg Hydroxide (Magnesium Hydrox/Alum Hydrox 30 Ml Oral.Susp) 30 ml PO Q6H PRN PRN Reason: Heartburn/Nausea Cefuroxime Axetil (Cefuroxime Axetil 500 Mg Tablet) 500 mg PO BID [facility] Last Admin: 01/19/23 08:15 Dose: 500 mg Magnesium Hydroxide (Milk Of Magnesia 30 Ml Oral.Susp) 30 ml PO DAILY PRN PRN Reason: Constipation Olanzapine (Olanzapine 7.5 Mg Tablet) 7.5 mg PO BEDTIME [facility] Last Admin: 01/18/23 20:59 Dose: 7.5 mg Trazodone HCl (Trazodone Hcl 25 Mg Halftab) 25 mg PO BEDTIME MRX1 PRN PRN Reason: Insomnia Last Admin: 01/18/23 20:59 Dose: 25 mg Allergies Allergies Allergy/AdvReac Type Severity Reaction Status Date / Time Penicillins [PENICILLINS] Allergy Severe HIVES Unverified 06/05/22 15:19 bee pollen [BEE STINGS] Allergy Unknown RASH Unverified 11/09/19 18:41 cortisone [CORTISONE] Allergy Unknown RASH Unverified 11/09/19 18:41 penicillin V Allergy Unknown rash Verified 08/07/19 00:00 Chocolate AdvReac Vomiting Verified 06/05/22 15:19 Benadryl Allergy Mild Vomiting Uncoded 06/05/22 15:19 bees Allergy Unknown swells up Uncoded 08/07/19 00:00 Assessment & Plan Assessment & Plan (1) Bipolar disorder: Status: Acute Code(s): F31.9 - Bipolar disorder, unspecified Plan the patient is an elderly female with a past history of bipolar disorder, cardiovascular disease, stroke, other medical comorbidities admitted for a manic episode since the patient stopped her Invega Sustenna due to side effects. At this moment the patient is grossly manic with psychotic symptoms unable to take care of herself. Even though that she has psychotic she understood that she needs to be in the hospital. Plan 1. Very increasing Zyprexa to 7.5 mg p.o. q.h.s. on January 18. 2. We will gather collateral information, will call her . For a family meeting pretty soon Reason for continued inpatient stay Substantial Risk for: inability to function, rapid decompensation and med/psych decompensation Time Spent With Patient Time: Total time managing care of this patient today __20__ minutes.
[2023-01-19 18:00] VITALS: BP 146/73; PULSE 78; RESP 18; TEMP 36.4; O2SAT 94
[2023-01-19] MEDS: OLANZapine 7.5 MG TABLET PO (21:03)
[2023-01-20 08:00] VITALS: BP 149/76; PULSE 95; RESP 18; TEMP 36.4; O2SAT 96
[2023-01-20] MEDS: cefuroxime axetiL 500 MG TABLET PO ×2 (08:11→20:58)
--- NOTE | 2023-01-20 11:22 | HO.PSYCHPN ---
Subjective Subjective Date of Service: 01/20/23 Reason For Visit: Dysregulated Subjective Notes: Conditional Voluntary Interim History: the nursing staff reported the patient remains pleasant cooperative but would racing thoughts. On interview the patient reports that she is feeling better, she slept 7 hours. She denies over-sedation with Zyprexa. We discussed at length options and she agreed to increase Zyprexa to 10 mg p.o. q.h.s. Mental Status Exam Mental Status Exam Patient Appearance: Well Grooomed and Appropriate Patient Orientation: Person and Situation Level of Consciousness: Awake and Appropriate Patient Behavior: Guarded and Passive Mood Description: Withdrawn Affect Description: Constricted Patient Cognition Impaired: Yes Ability to Follow Directions: Good Speech Pattern: Clear Hallucinations: None Delusions: Grandiose Thought Process: Racing and Distracted Thought Content: positive for [place] and positive for Preoccupation Judgement: Fair Diagnostics Vital Signs (24Hr): Vital Signs - 24 hr 01/19/23 18:00 01/20/23 08:00 Temperature 97.6 F 97.6 F Pulse Rate 78 95 Respiratory Rate 18 18 Blood Pressure 146/73 H 149/76 H Pulse Oximetry 94 96 Oxygen Delivery Method Room Air Room Air BMI result Body Mass Index 21.7 Labs 01/13/23 09:09 01/14/23 08:27 Imaging Radiology Impressions: ITS Impressions Chest X-Ray 01/13/23 10:09 IMPRESSION: No acute cardiopulmonary process seen. Medications Medications Current Medications Acetaminophen (Acetaminophen 325 Mg Tablet) 650 mg PO Q6H PRN PRN Reason: Headache/Pain Mild Scale (1-3) Last Admin: 01/18/23 18:21 Dose: 650 mg Al Hydroxide/Mg Hydroxide (Magnesium Hydrox/Alum Hydrox 30 Ml Oral.Susp) 30 ml PO Q6H PRN PRN Reason: Heartburn/Nausea Cefuroxime Axetil (Cefuroxime Axetil 500 Mg Tablet) 500 mg PO BID SHAR Last Admin: 01/20/23 08:11 Dose: 500 mg Magnesium Hydroxide (Milk Of Magnesia 30 Ml Oral.Susp) 30 ml PO DAILY PRN PRN Reason: Constipation Olanzapine (Olanzapine 10 Mg Tablet) 10 mg PO BEDTIME SHAR Trazodone HCl (Trazodone Hcl 25 Mg Halftab) 25 mg PO BEDTIME MRX1 PRN PRN Reason: Insomnia Last Admin: 01/18/23 20:59 Dose: 25 mg Allergies Allergies Allergy/AdvReac Type Severity Reaction Status Date / Time Penicillins [PENICILLINS] Allergy Severe HIVES Unverified 06/05/22 15:19 bee pollen [BEE STINGS] Allergy Unknown RASH Unverified 11/09/19 18:41 cortisone [CORTISONE] Allergy Unknown RASH Unverified 11/09/19 18:41 penicillin V Allergy Unknown rash Verified 08/07/19 00:00 Chocolate AdvReac Vomiting Verified 06/05/22 15:19 Benadryl Allergy Mild Vomiting Uncoded 06/05/22 15:19 bees Allergy Unknown swells up Uncoded 08/07/19 00:00 Assessment & Plan Assessment & Plan (1) Bipolar disorder: Status: Acute Code(s): F31.9 - Bipolar disorder, unspecified Plan the patient is an elderly female with a past history of bipolar disorder, cardiovascular disease, stroke, other medical comorbidities admitted for a manic episode since the patient stopped her Invega Sustenna due to side effects. At this moment the patient is grossly manic with psychotic symptoms unable to take care of herself. Even though that she has psychotic she understood that she needs to be in the hospital. Plan 1. Very increasing Zyprexa to 7.5 mg p.o. q.h.s. on January 18. on January 20 where increasimg Zyprexa to 10 mg p.o. q.h.s. 2. We will gather collateral information, will call her . For a family meeting pretty soon Reason for continued inpatient stay Substantial Risk for: inability to function, rapid decompensation and med/psych decompensation Time Spent With Patient Time: Total time managing care of this patient today __20__ minutes.
[2023-01-20] MEDS: OLANZapine 5 MG TABLET PO (13:14)
--- NOTE | 2023-01-20 14:08 | MHC.CLN ---
F/U DIET=REGULAR. INTAKE USUALLY 50-100%. SIGNIFICANT WEIGHT LOSS X 6 MONTHS DUE TO POOR PO/LOW APPETITE PRIOR TO ADMIT.. FOLLOW FOR INTAKE AND WEIGHT. RD TO FOLLOW WEEKLY.
[2023-01-20 18:00] VITALS: BP 165/79; PULSE 96; RESP 16; TEMP 36.3; O2SAT 98
[2023-01-20] MEDS: OLANZapine 10 MG TABLET PO (20:58)
[2023-01-20 23:02] VITALS: BP 149/72
[2023-01-21 07:00] VITALS: BMI 22.3
[2023-01-21 07:49] VITALS: BP 141/76; PULSE 90; RESP 18; TEMP 36.6; O2SAT 95
[2023-01-21] MEDS: cefuroxime axetiL 500 MG TABLET PO ×2 (08:23→21:15)
[2023-01-21] MEDS: Acetaminophen 325 MG TABLET 650 MG PO (08:23)
--- NOTE | 2023-01-21 10:36 | HO.PSYCHPN ---
Subjective Subjective Date of Service: 01/21/23 Reason For Visit: Dysregulated Subjective Notes: Conditional Voluntary Interim History: The nursing staff reported that the patient had not attended to groups she had been hyperverbal but she slept 8 hours. On interview the patient remains hypomanic with fast speech and flight of ideas, no side effects with Zyprexa at night. Yesterday we increased up to 10 mg p.o. q.h.s. and we will wait to see if it is stabilized her mood. Mental Status Exam Mental Status Exam Patient Appearance: Well Grooomed and Appropriate Patient Orientation: Person and Situation Level of Consciousness: Awake and Appropriate Patient Behavior: Guarded and Passive Mood Description: Withdrawn Affect Description: Constricted Patient Cognition Impaired: Yes Ability to Follow Directions: Good Speech Pattern: Clear Hallucinations: None Delusions: Grandiose Thought Process: Racing and Distracted Thought Content: positive for Circum[place] Judgement: Fair Diagnostics Vital Signs (24Hr): Vital Signs - 24 hr 01/20/23 18:00 01/20/23 23:02 01/21/23 07:49 Temperature 97.3 F 97.9 F Pulse Rate 96 90 Respiratory Rate 16 18 Blood Pressure 165/79 H 149/72 H 141/76 H Pulse Oximetry 98 95 Oxygen Delivery Method Room Air Room Air BMI result Body Mass Index 21.7 Labs 01/13/23 09:09 01/14/23 08:27 Imaging Radiology Impressions: ITS Impressions Chest X-Ray 01/13/23 10:09 IMPRESSION: No acute cardiopulmonary process seen. Medications Medications Current Medications Acetaminophen (Acetaminophen 325 Mg Tablet) 650 mg PO Q6H PRN PRN Reason: Headache/Pain Mild Scale (1-3) Last Admin: 01/21/23 08:23 Dose: 650 mg Al Hydroxide/Mg Hydroxide (Magnesium Hydrox/Alum Hydrox 30 Ml Oral.Susp) 30 ml PO Q6H PRN PRN Reason: Heartburn/Nausea Cefuroxime Axetil (Cefuroxime Axetil 500 Mg Tablet) 500 mg PO BID [facility] Last Admin: 01/21/23 08:23 Dose: 500 mg Magnesium Hydroxide (Milk Of Magnesia 30 Ml Oral.Susp) 30 ml PO DAILY PRN PRN Reason: Constipation Olanzapine (Olanzapine 10 Mg Tablet) 10 mg PO BEDTIME [facility] Last Admin: 01/20/23 20:58 Dose: 10 mg Olanzapine (Olanzapine 5 Mg Tablet) 5 mg PO Q4H PRN PRN Reason: Agitation Last Admin: 01/20/23 13:14 Dose: 5 mg Trazodone HCl (Trazodone Hcl 25 Mg Halftab) 25 mg PO BEDTIME MRX1 PRN PRN Reason: Insomnia Last Admin: 01/18/23 20:59 Dose: 25 mg Allergies Allergies Allergy/AdvReac Type Severity Reaction Status Date / Time Penicillins [PENICILLINS] Allergy Severe HIVES Verified 01/20/23 13:04 bee pollen [BEE STINGS] Allergy Unknown RASH Unverified 11/09/19 18:41 cortisone [CORTISONE] Allergy Unknown RASH Unverified 11/09/19 18:41 penicillin V Allergy Unknown rash Verified 08/07/19 00:00 Chocolate AdvReac Vomiting Verified 06/05/22 15:19 Benadryl Allergy Mild Vomiting Uncoded 06/05/22 15:19 bees Allergy Unknown swells up Uncoded 08/07/19 00:00 Assessment & Plan Assessment & Plan (1) Bipolar disorder: Status: Acute Code(s): F31.9 - Bipolar disorder, unspecified Plan the patient is an elderly female with a past history of bipolar disorder, cardiovascular disease, stroke, other medical comorbidities admitted for a manic episode since the patient stopped her Invega Sustenna due to side effects. At this moment the patient is grossly manic with psychotic symptoms unable to take care of herself. Even though that she has psychotic she understood that she needs to be in the hospital. Plan 1. Very increasing Zyprexa to 7.5 mg p.o. q.h.s. on January 18. on January 20 where increasimg Zyprexa to 10 mg p.o. q.h.s. 2. We will gather collateral information, will call her . For a family meeting pretty soon Reason for continued inpatient stay Substantial Risk for: inability to function, rapid decompensation and med/psych decompensation Time Spent With Patient Time: Total time managing care of this patient today __20__ minutes.
[2023-01-21 19:45] VITALS: BP 158/83; PULSE 84; RESP 16; TEMP 37.2; O2SAT 99
[2023-01-21] MEDS: OLANZapine 10 MG TABLET PO (21:15)
[2023-01-21] MEDS: traZODone HCL 25 MG HALFTAB PO (21:15)
[2023-01-22 07:55] VITALS: BP 146/73; PULSE 95; RESP 18; TEMP 37; O2SAT 99
[2023-01-22] MEDS: cefuroxime axetiL 500 MG TABLET PO ×2 (08:13→20:30)
--- NOTE | 2023-01-22 12:11 | HO.PSYCHPN ---
Subjective Subjective Date of Service: 01/22/23 Reason For Visit: Dysregulated Subjective Notes: Conditional Voluntary Interim History: The nursing staff reported the patient has been manic, intrusive with some peers and irritable with another peer who is disinhibited. On interview the patient reports feeling great, with rapid speech. We are going to increase her Zyprexa to 15 mg p.o. q.h.s. and reassess on Wednesday. Mental Status Exam Mental Status Exam Patient Appearance: Well Grooomed and Appropriate Patient Orientation: Person and Situation Level of Consciousness: Awake and Appropriate Patient Behavior: Guarded and Passive Mood Description: Elated Affect Description: Labile Patient Cognition Impaired: Yes Ability to Follow Directions: Good Speech Pattern: Clear Hallucinations: None Delusions: Grandiose Thought Process: Racing Thought Content: positive for [place] and positive for Circumstantial Judgement: Poor Diagnostics Vital Signs (24Hr): Vital Signs - 24 hr 01/21/23 19:45 Temperature 98.9 F Pulse Rate 84 Respiratory Rate 16 Blood Pressure 158/83 H Pulse Oximetry 99 Oxygen Delivery Method Room Air BMI result Body Mass Index 22.3 Labs 01/13/23 09:09 01/14/23 08:27 Imaging Radiology Impressions: ITS Impressions Chest X-Ray 01/13/23 10:09 IMPRESSION: No acute cardiopulmonary process seen. Medications Medications Current Medications Acetaminophen (Acetaminophen 325 Mg Tablet) 650 mg PO Q6H PRN PRN Reason: Headache/Pain Mild Scale (1-3) Last Admin: 01/21/23 08:23 Dose: 650 mg Al Hydroxide/Mg Hydroxide (Magnesium Hydrox/Alum Hydrox 30 Ml Oral.Susp) 30 ml PO Q6H PRN PRN Reason: Heartburn/Nausea Cefuroxime Axetil (Cefuroxime Axetil 500 Mg Tablet) 500 mg PO BID SHAR Last Admin: 01/22/23 08:13 Dose: 500 mg Magnesium Hydroxide (Milk Of Magnesia 30 Ml Oral.Susp) 30 ml PO DAILY PRN PRN Reason: Constipation Olanzapine (Olanzapine 5 Mg Tablet) 5 mg PO Q4H PRN PRN Reason: Agitation Last Admin: 01/20/23 13:14 Dose: 5 mg Olanzapine (Olanzapine 7.5 Mg Tablet) 15 mg PO BEDTIME SHAR Trazodone HCl (Trazodone Hcl 25 Mg Halftab) 25 mg PO BEDTIME MRX1 PRN PRN Reason: Insomnia Last Admin: 01/21/23 21:15 Dose: 25 mg Allergies Allergies Allergy/AdvReac Type Severity Reaction Status Date / Time Penicillins [PENICILLINS] Allergy Severe HIVES Verified 01/20/23 13:04 bee pollen [BEE STINGS] Allergy Unknown RASH Unverified 11/09/19 18:41 cortisone [CORTISONE] Allergy Unknown RASH Unverified 11/09/19 18:41 penicillin V Allergy Unknown rash Verified 08/07/19 00:00 Chocolate AdvReac Vomiting Verified 06/05/22 15:19 Benadryl Allergy Mild Vomiting Uncoded 06/05/22 15:19 bees Allergy Unknown swells up Uncoded 08/07/19 00:00 Assessment & Plan Assessment & Plan (1) Bipolar disorder: Status: Acute Code(s): F31.9 - Bipolar disorder, unspecified Plan the patient is an elderly female with a past history of bipolar disorder, cardiovascular disease, stroke, other medical comorbidities admitted for a manic episode since the patient stopped her Invega Sustenna due to side effects. At this moment the patient is grossly manic with psychotic symptoms unable to take care of herself. Even though that she has psychotic she understood that she needs to be in the hospital. Plan 1. Very increasing Zyprexa to 7.5 mg p.o. q.h.s. on January 18. on January 20 where increasimg Zyprexa to 10 mg p.o. q.h.s. on January 22 we increased up to 15 mg p.o. q.h.s. 2. We will gather collateral information, will call her . For a family meeting pretty soon Reason for continued inpatient stay Substantial Risk for: inability to function, rapid decompensation and med/psych decompensation Time Spent With Patient Time: Total time managing care of this patient today __20__ minutes.
--- NOTE | 2023-01-22 15:27 | PC.NURSE ---
visited and noticed that patient had swollen feet and ankles, left worse than right, +2 pitting. Lung sounds are clear bilaterally, no shortness of breath. Dr. Varela updated, new order for knee high TEDS obtained.
[2023-01-22 18:00] VITALS: BP 128/70; PULSE 87; RESP 18; TEMP 36.6; O2SAT 97
[2023-01-22] MEDS: OLANZapine 7.5 MG TABLET 15 MG PO (20:30)
[2023-01-22] MEDS: traZODone HCL 25 MG HALFTAB PO (20:30)
[2023-01-23 08:00] VITALS: BP 162/73; PULSE 80; RESP 18; TEMP 36.8; O2SAT 97
[2023-01-23] MEDS: cefuroxime axetiL 500 MG TABLET PO (08:13)
--- NOTE | 2023-01-23 13:13 | HO.PSYCHPN ---
Subjective Subjective Date of Service: 01/23/23 Reason For Visit: Dysregulated Interim History: Seen in [facility] area. Engaged today. Sleep ok. is aware of all the staff present. Non sensical thought pattern without agitation. Reported that somebody was waiting for a puppy. Also stated it was happy hour. Was cleaning the table with a paper napkin in a repeated manner and largely non purposeful. Medication Compliance: Yes Side effects from medications: No Attending Groups: Intermittent Review of Systems Acute medical concerns: No Mental Status Exam Mental Status Exam Narrative: Casually dressed and fair hygiene. Seen at table, illogical thinking, less paranoid. No aggression. No evidence of SI/HI. Insight poor. Diagnostics Vital Signs (24Hr): Vital Signs - 24 hr 01/22/23 18:00 01/23/23 08:00 Temperature 98 F 98.3 F Pulse Rate 87 80 Respiratory Rate 18 18 Blood Pressure 128/70 162/73 H Pulse Oximetry 97 97 Oxygen Delivery Method Room Air Room Air BMI result Body Mass Index 22.3 Labs 01/13/23 09:09 01/14/23 08:27 Imaging Radiology Impressions: ITS Impressions Chest X-Ray 01/13/23 10:09 IMPRESSION: No acute cardiopulmonary process seen. Medications Medications Current Medications Acetaminophen (Acetaminophen 325 Mg Tablet) 650 mg PO Q6H PRN PRN Reason: Headache/Pain Mild Scale (1-3) Last Admin: 01/21/23 08:23 Dose: 650 mg Al Hydroxide/Mg Hydroxide (Magnesium Hydrox/Alum Hydrox 30 Ml Oral.Susp) 30 ml PO Q6H PRN PRN Reason: Heartburn/Nausea Magnesium Hydroxide (Milk Of Magnesia 30 Ml Oral.Susp) 30 ml PO DAILY PRN PRN Reason: Constipation Olanzapine (Olanzapine 5 Mg Tablet) 5 mg PO Q4H PRN PRN Reason: Agitation Last Admin: 01/20/23 13:14 Dose: 5 mg Olanzapine (Olanzapine 7.5 Mg Tablet) 15 mg PO BEDTIME SHAR Last Admin: 01/22/23 20:30 Dose: 15 mg Trazodone HCl (Trazodone Hcl 25 Mg Halftab) 25 mg PO BEDTIME MRX1 PRN PRN Reason: Insomnia Last Admin: 01/22/23 20:30 Dose: 25 mg Allergies Allergies Allergy/AdvReac Type Severity Reaction Status Date / Time Penicillins [PENICILLINS] Allergy Severe HIVES Verified 01/20/23 13:04 bee pollen [BEE STINGS] Allergy Unknown RASH Unverified 11/09/19 18:41 cortisone [CORTISONE] Allergy Unknown RASH Unverified 11/09/19 18:41 penicillin V Allergy Unknown rash Verified 08/07/19 00:00 Chocolate AdvReac Vomiting Verified 06/05/22 15:19 Benadryl Allergy Mild Vomiting Uncoded 06/05/22 15:19 bees Allergy Unknown swells up Uncoded 08/07/19 00:00 Assessment & Plan Assessment & Plan (1) Bipolar disorder: Status: Acute Code(s): F31.9 - Bipolar disorder, unspecified Plan the patient is an elderly female with a past history of bipolar disorder, cardiovascular disease, stroke, other medical comorbidities admitted for a manic episode since the patient stopped her Invega Sustenna due to side effects. At this moment the patient is grossly manic with psychotic symptoms unable to take care of herself. Even though that she has psychotic she understood that she needs to be in the hospital. 01/23/23: no changes Plan 1. Very increasing Zyprexa to 7.5 mg p.o. q.h.s. on January 18. on January 20 where increasimg Zyprexa to 10 mg p.o. q.h.s. on January 22 we increased up to 15 mg p.o. q.h.s. 2. We will gather collateral information, will call her . For a family meeting pretty soon Reason for continued inpatient stay Substantial Risk for: rapid decompensation Time Spent With Patient Time: Total time managing care of this patient today ____ minutes.
--- NOTE | 2023-01-23 16:33 | PC.NURSE ---
Orthostatic BP at 16:00 lying position 119/57, P 107; Sitting 106/57, P 99, ; standing 95/55, P 103. Dr Rocha notified.
[2023-01-23 18:00] VITALS: BP 142/67; PULSE 87; RESP 18; TEMP 36.3; O2SAT 97
[2023-01-23] MEDS: OLANZapine 7.5 MG TABLET 15 MG PO (20:27)
[2023-01-23] MEDS: traZODone HCL 25 MG HALFTAB PO (20:28)
[2023-01-24 08:00] VITALS: BP 151/79; PULSE 85; RESP 18; TEMP 36.9; O2SAT 96
[2023-01-24] MEDS: Acetaminophen 325 MG TABLET 650 MG PO (08:13)
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
[2023-01-24 18:00] VITALS: BP 158/77; PULSE 95; RESP 18; TEMP 36.4; O2SAT 95
[2023-01-24] MEDS: traZODone HCL 25 MG HALFTAB PO (20:49)
[2023-01-24] MEDS: OLANZapine 7.5 MG TABLET 15 MG PO (20:49)
[2023-01-25 07:45] VITALS: BP 136/74; PULSE 86; RESP 18; TEMP 36.8; O2SAT 94
--- NOTE | 2023-01-25 10:23 | P.PNPSI_ITS ---
Subjective Subjective Date of Service: 01/25/23 Reason For Visit: Dysregulated Subjective Notes: Conditional Voluntary Interim History: The nursing staff reported the patient was triggered yesterday for overstimulation by other peers. The staff has noticed that she has less manic. Today in the morning after breakfast she was very sleepy. She looks less manic. We are going to do blood work tomorrow morning. Mental Status Exam Mental Status Exam Patient Appearance: Appropriate Patient Orientation: Person and Situation Level of Consciousness: Lethargic Patient Behavior: Guarded and Cooperative Mood Description: Withdrawn Affect Description: Constricted Patient Cognition Impaired: Yes Ability to Follow Directions: Good Speech Pattern: Clear Hallucinations: None Delusions: Grandiose Thought Process: Distracted and Slowed Thinking Thought Content: positive for [place] Judgement: Fair Diagnostics Vital Signs (24Hr): Vital Signs - 24 hr 01/24/23 18:00 01/25/23 07:45 Temperature 97.6 F 98.2 F Pulse Rate 95 86 Respiratory Rate 18 18 Blood Pressure 158/77 H 136/74 Pulse Oximetry 95 94 Oxygen Delivery Method Room Air Room Air BMI result Body Mass Index 22.3 Labs 01/13/23 09:09 01/14/23 08:27 Imaging Radiology Impressions: ITS Impressions Chest X-Ray 01/13/23 10:09 IMPRESSION: No acute cardiopulmonary process seen. Medications Medications Current Medications Acetaminophen (Acetaminophen 325 Mg Tablet) 650 mg PO Q6H PRN PRN Reason: Headache/Pain Mild Scale (1-3) Last Admin: 01/24/23 08:13 Dose: 650 mg Al Hydroxide/Mg Hydroxide (Magnesium Hydrox/Alum Hydrox 30 Ml Oral.Susp) 30 ml PO Q6H PRN PRN Reason: Heartburn/Nausea Magnesium Hydroxide (Milk Of Magnesia 30 Ml Oral.Susp) 30 ml PO DAILY PRN PRN Reason: Constipation Olanzapine (Olanzapine 5 Mg Tablet) 5 mg PO Q4H PRN PRN Reason: Agitation Last Admin: 01/20/23 13:14 Dose: 5 mg Olanzapine (Olanzapine 7.5 Mg Tablet) 15 mg PO BEDTIME SHAR Last Admin: 01/24/23 20:49 Dose: 15 mg Trazodone HCl (Trazodone Hcl 25 Mg Halftab) 25 mg PO BEDTIME MRX1 PRN PRN Reason: Insomnia Last Admin: 01/24/23 20:49 Dose: 25 mg Allergies Allergies Allergy/AdvReac Type Severity Reaction Status Date / Time Penicillins [PENICILLINS] Allergy Severe HIVES Verified 01/20/23 13:04 bee pollen [BEE STINGS] Allergy Unknown RASH Unverified 11/09/19 18:41 cortisone [CORTISONE] Allergy Unknown RASH Unverified 11/09/19 18:41 penicillin V Allergy Unknown rash Verified 08/07/19 00:00 Chocolate AdvReac Vomiting Verified 06/05/22 15:19 Benadryl Allergy Mild Vomiting Uncoded 06/05/22 15:19 bees Allergy Unknown swells up Uncoded 08/07/19 00:00 Assessment & Plan Assessment & Plan (1) Bipolar disorder: Status: Acute Code(s): F31.9 - Bipolar disorder, unspecified Plan the patient is an elderly female with a past history of bipolar disorder, cardiovascular disease, stroke, other medical comorbidities admitted for a manic episode since the patient stopped her Invega Sustenna due to side effects. At this moment the patient is grossly manic with psychotic symptoms unable to take care of herself. Even though that she has psychotic she understood that she needs to be in the hospital. 01/23/23: no changes 01/24: no changes Plan 1. Very increasing Zyprexa to 7.5 mg p.o. q.h.s. on January 18. on January 20 where increasimg Zyprexa to 10 mg p.o. q.h.s. on January 22 we increased up to 15 mg p.o. q.h.s. 2. We will gather collateral information, will call her . For a family meeting pretty soon Reason for continued inpatient stay Substantial Risk for: inability to function, rapid decompensation and med/psych decompensation Time Spent With Patient Time: Total time managing care of this patient today __20__ minutes.
[2023-01-25] MEDS: Magnesium Hydrox/Alum Hydrox 30 ML ORAL.SUSP PO (15:30)
[2023-01-25] MEDS: Milk of Magnesia 30 ML ORAL.SUSP PO (15:30)
[2023-01-25 22:20] VITALS: BP 140/63; PULSE 75; RESP 16; TEMP 36.1; O2SAT 99
[2023-01-25] MEDS: Metoprolol Tartrate 12.5 MG HALFTAB PO (22:26)
[2023-01-25] MEDS: OLANZapine 10 MG TABLET PO (22:26)
[2023-01-25] MEDS: traZODone HCL 25 MG HALFTAB PO (22:26)
[2023-01-26 07:40] VITALS: BP 142/80; PULSE 91; RESP 18; TEMP 36.8; O2SAT 96
[2023-01-26 08:18] LABS: Estimated Average Glucose 105 mg/dL; Hemoglobin A1c % 5.3 % (<6.0)
[2023-01-26 08:27] LABS: Anion Gap 9 (12-20); Blood Urea Nitrogen 13 mg/dL (9-16); Calcium 9.6 mg/dL (8.4-10.2); Carbon Dioxide 26 mmol/L (22-29); Chloride 110 mmol/L (96-108); Cholesterol 187 mg/dL (<200); Creatinine Clr Calc Pharmacy 61.2; Estimated Glomerular Filt Rate > 60; Glucose Random 125 mg/dL (60-115); HDL Cholesterol 64 mg/dL (>40); LDL Cholesterol Calculated 109 mg/dL (<100); Sodium 141 mmol/L (135-145); Triglycerides 73 mg/dL (<150)
[2023-01-26] MEDS: Atorvastatin Calcium 40 MG TABLET PO (08:36)
[2023-01-26] MEDS: amLODIPine Besylate 5 MG TABLET PO (08:36)
[2023-01-26] MEDS: Metoprolol Tartrate 12.5 MG HALFTAB PO ×3 (08:36→19:58)
--- NOTE | 2023-01-26 13:26 | P.PNPSI_ITS ---
Subjective Subjective Date of Service: 01/26/23 Reason For Visit: Dysregulated Subjective Notes: Conditional Voluntary Interim History: The nursing staff reported the patient had been less sedated in the morning but later on she was falling sleep. On interview she looks less sedated. Yesterday we review the list of medications in the nursing staff and we review the med reconciliation form since she was not taking her blood pressure medication. On interview the patient denies new symptoms looks slightly sedated we are going to keep Zyprexa 10 mg. It is evident that there is less cony at this point. She is asking for discharge and we will contact her . Mental Status Exam Mental Status Exam Patient Appearance: Appropriate Patient Orientation: Person and Situation Level of Consciousness: Awake and Appropriate Patient Behavior: Passive Mood Description: Withdrawn Affect Description: Constricted Patient Cognition Impaired: Yes Ability to Follow Directions: Good Speech Pattern: Clear Hallucinations: None Delusions: Grandiose and Ideas of Reference Thought Process: Distracted Thought Content: positive for [place], positive for [place] and positive for Poverty of Content Judgement: Poor Diagnostics Vital Signs (24Hr): Vital Signs - 24 hr 01/25/23 22:20 01/26/23 07:40 Temperature 97.0 F 98.2 F Pulse Rate 75 91 Respiratory Rate 16 18 Blood Pressure 140/63 H 142/80 H Pulse Oximetry 99 96 Oxygen Delivery Method Room Air Room Air BMI result Body Mass Index 22.3 Labs 01/13/23 09:09 01/26/23 07:48 Labs: Laboratory Results - last 48 hr 01/26/23 07:48 Sodium 141 Potassium 4.0 Chloride 110 H Carbon Dioxide 26 Anion Gap 9 L BUN 13 Creatinine 0.67 Estim Creat Clear Calc 61.2 Estimated GFR > 60 Random Glucose 125 H Estimat Average Glucose 105 Hemoglobin A1c % 5.3 Calcium 9.6 D Triglycerides 73 Cholesterol 187 LDL Cholesterol, Calc 109 H HDL Cholesterol 64 Imaging Radiology Impressions: ITS Impressions Chest X-Ray 01/13/23 10:09 IMPRESSION: No acute cardiopulmonary process seen. Medications Medications Current Medications Acetaminophen (Acetaminophen 325 Mg Tablet) 650 mg PO Q6H PRN PRN Reason: Headache/Pain Mild Scale (1-3) Last Admin: 01/24/23 08:13 Dose: 650 mg Al Hydroxide/Mg Hydroxide (Magnesium Hydrox/Alum Hydrox 30 Ml Oral.Susp) 30 ml PO Q6H PRN PRN Reason: Heartburn/Nausea Last Admin: 01/25/23 15:30 Dose: 30 ml Amlodipine Besylate (Amlodipine Besylate 5 Mg Tablet) 5 mg PO DAILY [facility]; Protocol Last Admin: 01/26/23 08:36 Dose: 5 mg Atorvastatin Calcium (Atorvastatin Calcium 40 Mg Tablet) 40 mg PO DAILY [facility] Last Admin: 01/26/23 08:36 Dose: 40 mg Magnesium Hydroxide (Milk Of Magnesia 30 Ml Oral.Susp) 30 ml PO DAILY PRN PRN Reason: Constipation Last Admin: 01/25/23 15:30 Dose: 30 ml Metoprolol Tartrate (Metoprolol Tartrate 12.5 Mg Halftab) 12.5 mg PO TID [facility]; Protocol Last Admin: 01/26/23 08:36 Dose: 12.5 mg Olanzapine (Olanzapine 5 Mg Tablet) 5 mg PO Q4H PRN PRN Reason: Agitation Last Admin: 01/20/23 13:14 Dose: 5 mg Olanzapine (Olanzapine 10 Mg Tablet) 10 mg PO BEDTIME SHAR Last Admin: 01/25/23 22:26 Dose: 10 mg Trazodone HCl (Trazodone Hcl 25 Mg Halftab) 25 mg PO BEDTIME MRX1 PRN PRN Reason: Insomnia Last Admin: 01/25/23 22:26 Dose: 25 mg Allergies Allergies Allergy/AdvReac Type Severity Reaction Status Date / Time Penicillins [PENICILLINS] Allergy Severe HIVES Verified 01/20/23 13:04 bee pollen [BEE STINGS] Allergy Unknown RASH Unverified 11/09/19 18:41 cortisone [CORTISONE] Allergy Unknown RASH Unverified 11/09/19 18:41 penicillin V Allergy Unknown rash Verified 08/07/19 00:00 Chocolate AdvReac Vomiting Verified 06/05/22 15:19 Benadryl Allergy Mild Vomiting Uncoded 06/05/22 15:19 bees Allergy Unknown swells up Uncoded 08/07/19 00:00 Assessment & Plan Assessment & Plan (1) Bipolar disorder: Status: Acute Code(s): F31.9 - Bipolar disorder, unspecified Plan the patient is an elderly female with a past history of bipolar disorder, cardiovascular disease, stroke, other medical comorbidities admitted for a manic episode since the patient stopped her Invega Sustenna due to side effects. At this moment the patient is grossly manic with psychotic symptoms unable to take care of herself. Even though that she has psychotic she understood that she needs to be in the hospital. 01/23/23: no changes 01/24: no changes Plan 1. Very increasing Zyprexa to 7.5 mg p.o. q.h.s. on January 18. on January 20 where increasimg Zyprexa to 10 mg p.o. q.h.s. on January 22 we increased up to 15 mg p.o. q.h.s. but later on we have to lowered to 10 mg because she was too sedated during the day. 2. We will gather collateral information, will call her . For a family meeting pretty soon Reason for continued inpatient stay Substantial Risk for: inability to function, rapid decompensation and med/psych decompensation Time Spent With Patient Time: Total time managing care of this patient today __20__ minutes.
[2023-01-26 14:40] VITALS: BP 144/77; PULSE 80
[2023-01-26 19:35] VITALS: BP 121/58; PULSE 74; RESP 16; TEMP 36; O2SAT 95
[2023-01-26] MEDS: OLANZapine 10 MG TABLET PO (19:59)
[2023-01-27 09:27] VITALS: BP 132/79; PULSE 86; RESP 18; TEMP 36.6; O2SAT 96
[2023-01-27] MEDS: Metoprolol Tartrate 12.5 MG HALFTAB PO ×3 (09:29→20:43)
[2023-01-27] MEDS: amLODIPine Besylate 5 MG TABLET PO (09:29)
[2023-01-27] MEDS: Atorvastatin Calcium 40 MG TABLET PO (09:29)
--- NOTE | 2023-01-27 11:40 | HO.PSYCHPN ---
Subjective Subjective Date of Service: 01/27/23 Reason For Visit: Dysregulated Subjective Notes: Conditional Voluntary Interim History: The nursing staff reported the patient did not receive p.r.n., she has been cooperative visible attending to groups. She slept 7 hours. Today we discussed the case and the occupational therapist will do a [place] test today to see how much she has lost her cognition. It seems that her cony has improved but she is more cognitively decline. On interview the patient denies new symptoms she wants to get discharged as soon as possible. Mental Status Exam Mental Status Exam Patient Appearance: Well Grooomed and Appropriate Patient Orientation: Person and Situation Level of Consciousness: Awake and Appropriate Patient Behavior: Guarded and Passive Mood Description: Withdrawn Affect Description: Constricted Patient Cognition Impaired: Yes Ability to Follow Directions: Good Speech Pattern: Clear Hallucinations: None Delusions: Not Present Thought Process: Racing and Distracted Thought Content: positive for [place] and positive for Circumstantial Judgement: Fair Diagnostics Vital Signs (24Hr): Vital Signs - 24 hr 01/26/23 14:40 01/26/23 19:35 01/27/23 09:27 Temperature 96.8 F 97.9 F Pulse Rate 80 74 86 Respiratory Rate 16 18 Blood Pressure 144/77 H 121/58 L 132/79 Pulse Oximetry 95 96 Oxygen Delivery Method Room Air Room Air BMI result Body Mass Index 22.3 Labs 01/13/23 09:09 01/26/23 07:48 Labs: Laboratory Results - last 48 hr 01/26/23 07:48 Sodium 141 Potassium 4.0 Chloride 110 H Carbon Dioxide 26 Anion Gap 9 L BUN 13 Creatinine 0.67 Estim Creat Clear Calc 61.2 Estimated GFR > 60 Random Glucose 125 H Estimat Average Glucose 105 Hemoglobin A1c % 5.3 Calcium 9.6 D Triglycerides 73 Cholesterol 187 LDL Cholesterol, Calc 109 H HDL Cholesterol 64 Imaging Radiology Impressions: ITS Impressions Chest X-Ray 01/13/23 10:09 IMPRESSION: No acute cardiopulmonary process seen. Medications Medications Current Medications Acetaminophen (Acetaminophen 325 Mg Tablet) 650 mg PO Q6H PRN PRN Reason: Headache/Pain Mild Scale (1-3) Last Admin: 01/24/23 08:13 Dose: 650 mg Al Hydroxide/Mg Hydroxide (Magnesium Hydrox/Alum Hydrox 30 Ml Oral.Susp) 30 ml PO Q6H PRN PRN Reason: Heartburn/Nausea Last Admin: 01/25/23 15:30 Dose: 30 ml Amlodipine Besylate (Amlodipine Besylate 5 Mg Tablet) 5 mg PO DAILY [facility]; Protocol Last Admin: 01/27/23 09:29 Dose: 5 mg Atorvastatin Calcium (Atorvastatin Calcium 40 Mg Tablet) 40 mg PO DAILY [facility] Last Admin: 01/27/23 09:29 Dose: 40 mg Magnesium Hydroxide (Milk Of Magnesia 30 Ml Oral.Susp) 30 ml PO DAILY PRN PRN Reason: Constipation Last Admin: 01/25/23 15:30 Dose: 30 ml Metoprolol Tartrate (Metoprolol Tartrate 12.5 Mg Halftab) 12.5 mg PO TID [facility]; Protocol Last Admin: 01/27/23 09:29 Dose: 12.5 mg Olanzapine (Olanzapine 5 Mg Tablet) 5 mg PO Q4H PRN PRN Reason: Agitation Last Admin: 01/20/23 13:14 Dose: 5 mg Olanzapine (Olanzapine 10 Mg Tablet) 10 mg PO BEDTIME SHAR Last Admin: 01/26/23 19:59 Dose: 10 mg Trazodone HCl (Trazodone Hcl 25 Mg Halftab) 25 mg PO BEDTIME MRX1 PRN PRN Reason: Insomnia Last Admin: 01/25/23 22:26 Dose: 25 mg Allergies Allergies Allergy/AdvReac Type Severity Reaction Status Date / Time Penicillins [PENICILLINS] Allergy Severe HIVES Verified 01/20/23 13:04 bee pollen [BEE STINGS] Allergy Unknown RASH Unverified 11/09/19 18:41 cortisone [CORTISONE] Allergy Unknown RASH Unverified 11/09/19 18:41 penicillin V Allergy Unknown rash Verified 08/07/19 00:00 Chocolate AdvReac Vomiting Verified 06/05/22 15:19 Benadryl Allergy Mild Vomiting Uncoded 06/05/22 15:19 bees Allergy Unknown swells up Uncoded 08/07/19 00:00 Assessment & Plan Assessment & Plan (1) Bipolar disorder: Status: Acute Code(s): F31.9 - Bipolar disorder, unspecified Plan the patient is an elderly female with a past history of bipolar disorder, cardiovascular disease, stroke, other medical comorbidities admitted for a manic episode since the patient stopped her Invega Sustenna due to side effects. At this moment the patient is grossly manic with psychotic symptoms unable to take care of herself. Even though that she has psychotic she understood that she needs to be in the hospital. Plan 1. Very increasing Zyprexa to 7.5 mg p.o. q.h.s. on January 18. on January 20 where increasimg Zyprexa to 10 mg p.o. q.h.s. on January 22 we increased up to 15 mg p.o. q.h.s. but later on we have to lowered to 10 mg because she was too sedated during the day. 2. Cognitive assessment by Occupational therapist on January 27. 3. Reassessment with results. Reason for continued inpatient stay Substantial Risk for: inability to function, rapid decompensation and med/psych decompensation Time Spent With Patient Time: Total time managing care of this patient today _20___ minutes.
--- NOTE | 2023-01-27 14:44 | MHC.CLN ---
F/U DIET=REGULAR. INTAKE USUALLY 50-100%. NO ADDITIONAL WEIGHT LOSS SINCE ADMISSION. FOLLOW FOR INTAKE AND WEIGHT. RD TO FOLLOW WEEKLY.
[2023-01-27 14:56] VITALS: BP 137/73; PULSE 87
[2023-01-27 18:00] VITALS: BP 130/64; PULSE 83; RESP 16; TEMP 36.7; O2SAT 97
[2023-01-27] MEDS: traZODone HCL 25 MG HALFTAB PO (20:44)
[2023-01-27] MEDS: OLANZapine 10 MG TABLET PO (20:44)
[2023-01-28 07:00] VITALS: BMI 23.0
[2023-01-28 07:58] VITALS: BP 136/64; PULSE 82; RESP 18; TEMP 36.6; O2SAT 95
[2023-01-28] MEDS: amLODIPine Besylate 5 MG TABLET PO (08:50)
[2023-01-28] MEDS: Atorvastatin Calcium 40 MG TABLET PO (08:50)
[2023-01-28] MEDS: Metoprolol Tartrate 12.5 MG HALFTAB PO ×3 (08:50→20:33)
[2023-01-28] MEDS: bisacodyL 5 MG TABLET.DR 10 MG PO ×2 (09:09→20:34)
--- NOTE | 2023-01-28 13:29 | HO.PSYCHPN ---
Subjective Subjective Date of Service: 01/28/23 Reason For Visit: Dysregulated Subjective Notes: Conditional Voluntary Interim History: The nursing staff reported the patient has less manic, the sole in her legs improved with the restart the medication. She slept well and she was seen slightly sedated during the day. The child welfare social worker will call her and probably will suggest to a day program when discharged. The occupational therapist did a [place] and she score 16/30 and she scored 3.4 on the [place] test. On interview the patient was sleepy in the afternoon, it is evident that cony has improved but still sedated even though that will lower the Zyprexa. Mental Status Exam Mental Status Exam Patient Appearance: Well Grooomed and Appropriate Patient Orientation: Person and Situation Level of Consciousness: Awake and Appropriate Patient Behavior: Guarded and Passive Mood Description: Withdrawn Affect Description: Constricted Patient Cognition Impaired: Yes Ability to Follow Directions: Good Speech Pattern: Clear Hallucinations: None Delusions: Not Present Thought Process: Distracted Thought Content: positive for [place] and positive for Poverty of Content Judgement: Fair Diagnostics Vital Signs (24Hr): Vital Signs - 24 hr 01/27/23 14:56 01/27/23 18:00 01/28/23 07:58 Temperature 98.1 F 97.8 F Pulse Rate 87 83 82 Respiratory Rate 16 18 Blood Pressure 137/73 130/64 136/64 Pulse Oximetry 97 95 Oxygen Delivery Method Room Air Room Air BMI result Body Mass Index 23.0 Labs 01/13/23 09:09 01/26/23 07:48 Imaging Radiology Impressions: ITS Impressions Chest X-Ray 01/13/23 10:09 IMPRESSION: No acute cardiopulmonary process seen. Medications Medications Current Medications Acetaminophen (Acetaminophen 325 Mg Tablet) 650 mg PO Q6H PRN PRN Reason: Headache/Pain Mild Scale (1-3) Last Admin: 01/24/23 08:13 Dose: 650 mg Al Hydroxide/Mg Hydroxide (Magnesium Hydrox/Alum Hydrox 30 Ml Oral.Susp) 30 ml PO Q6H PRN PRN Reason: Heartburn/Nausea Last Admin: 01/25/23 15:30 Dose: 30 ml Amlodipine Besylate (Amlodipine Besylate 5 Mg Tablet) 5 mg PO DAILY [facility]; Protocol Last Admin: 01/28/23 08:50 Dose: 5 mg Atorvastatin Calcium (Atorvastatin Calcium 40 Mg Tablet) 40 mg PO DAILY [facility] Last Admin: 01/28/23 08:50 Dose: 40 mg Bisacodyl (Bisacodyl 5 Mg Tablet.Dr) 10 mg PO BEDTIME PRN PRN Reason: Constipation Last Admin: 01/28/23 09:09 Dose: 10 mg Magnesium Hydroxide (Milk Of Magnesia 30 Ml Oral.Susp) 30 ml PO DAILY PRN PRN Reason: Constipation Last Admin: 01/25/23 15:30 Dose: 30 ml Metoprolol Tartrate (Metoprolol Tartrate 12.5 Mg Halftab) 12.5 mg PO TID [facility]; Protocol Last Admin: 01/28/23 08:50 Dose: 12.5 mg Olanzapine (Olanzapine 5 Mg Tablet) 5 mg PO Q4H PRN PRN Reason: Agitation Last Admin: 01/20/23 13:14 Dose: 5 mg Olanzapine (Olanzapine 10 Mg Tablet) 10 mg PO BEDTIME SHAR Last Admin: 01/27/23 20:44 Dose: 10 mg Trazodone HCl (Trazodone Hcl 25 Mg Halftab) 25 mg PO BEDTIME MRX1 PRN PRN Reason: Insomnia Last Admin: 01/27/23 20:44 Dose: 25 mg Allergies Allergies Allergy/AdvReac Type Severity Reaction Status Date / Time Penicillins [PENICILLINS] Allergy Severe HIVES Verified 01/20/23 13:04 bee pollen [BEE STINGS] Allergy Unknown RASH Unverified 11/09/19 18:41 cortisone [CORTISONE] Allergy Unknown RASH Unverified 11/09/19 18:41 penicillin V Allergy Unknown rash Verified 08/07/19 00:00 Chocolate AdvReac Vomiting Verified 06/05/22 15:19 Benadryl Allergy Mild Vomiting Uncoded 06/05/22 15:19 bees Allergy Unknown swells up Uncoded 08/07/19 00:00 Assessment & Plan Assessment & Plan (1) Bipolar disorder: Status: Acute Code(s): F31.9 - Bipolar disorder, unspecified Plan the patient is an elderly female with a past history of bipolar disorder, cardiovascular disease, stroke, other medical comorbidities admitted for a manic episode since the patient stopped her Invega Sustenna due to side effects. At this moment the patient is grossly manic with psychotic symptoms unable to take care of herself. Even though that she has psychotic she understood that she needs to be in the hospital. Plan 1. We have increased Zyprexa up to 7.5 mg p.o. q.h.s. on January 18. on January 20 we were increasimg Zyprexa up to 10 mg p.o. q.h.s. on January 22 we increased up to 15 mg p.o. q.h.s. but later on we have to lowered to 10 mg because she was too sedated during the day. On January 28 she was still sedated but we will wait. 2. Cognitive assessment by Occupational therapist on January 27. She scored 16/30 on the [place] test and 3.4 in the [place] test. 3. Reassessment with results. Blood work for tomorrow January 29. Reason for continued inpatient stay Substantial Risk for: inability to function, rapid decompensation and med/psych decompensation Time Spent With Patient Time: Total time managing care of this patient today ____ minutes.
[2023-01-28 14:12] VITALS: BP 132/62; PULSE 92
[2023-01-28 18:00] VITALS: BP 146/69; PULSE 74; RESP 16; TEMP 36.2; O2SAT 97
[2023-01-28] MEDS: traZODone HCL 25 MG HALFTAB PO (20:34)
[2023-01-28] MEDS: OLANZapine 10 MG TABLET PO (20:34)
[2023-01-29 08:11] VITALS: BP 125/65; PULSE 90; RESP 18; TEMP 36.5; O2SAT 95
--- NOTE | 2023-01-29 08:26 | P.PNPSI_ITS ---
Subjective Subjective Date of Service: 01/29/23 Reason For Visit: Dysregulated Subjective Notes: Conditional Voluntary Interim History: The nursing staff reported the patient looks depressed, she is not manic anymore. She was lucid in conversation , cooperative and pleasant. Yesterday, we discussed lower the Zyprexa since she was over-sedated we are going to observe this weekend and see if we have to keep it on 10 or 7.5. We have decided to lowered the Zyprexa to 7.5. On interview, the patient reports mild sedation. The child welfare social worker reported that we are going to have a family meeting next Wednesday for discharge planning Mental Status Exam Mental Status Exam Patient Appearance: Appropriate Patient Orientation: Person and Situation Level of Consciousness: Awake and Appropriate Patient Behavior: Guarded and Passive Mood Description: Withdrawn Affect Description: Constricted Patient Cognition Impaired: Yes Ability to Follow Directions: Good Speech Pattern: Clear Hallucinations: None Delusions: Not Present Thought Process: Distracted, Evasive and Slowed Thinking Thought Content: positive for [place] and positive for Poverty of Content Judgement: Poor Diagnostics Vital Signs (24Hr): Vital Signs - 24 hr 01/28/23 14:12 01/28/23 18:00 01/29/23 08:11 Temperature 97.2 F 97.7 F Pulse Rate 92 74 90 Respiratory Rate 16 18 Blood Pressure 132/62 146/69 H 125/65 Pulse Oximetry 97 95 Oxygen Delivery Method Room Air Room Air BMI result Body Mass Index 23.0 Labs 01/13/23 09:09 01/26/23 07:48 Imaging Radiology Impressions: ITS Impressions Chest X-Ray 01/13/23 10:09 IMPRESSION: No acute cardiopulmonary process seen. Medications Medications Current Medications Acetaminophen (Acetaminophen 325 Mg Tablet) 650 mg PO Q6H PRN PRN Reason: Headache/Pain Mild Scale (1-3) Last Admin: 01/24/23 08:13 Dose: 650 mg Al Hydroxide/Mg Hydroxide (Magnesium Hydrox/Alum Hydrox 30 Ml Oral.Susp) 30 ml PO Q6H PRN PRN Reason: Heartburn/Nausea Last Admin: 01/25/23 15:30 Dose: 30 ml Amlodipine Besylate (Amlodipine Besylate 5 Mg Tablet) 5 mg PO DAILY [facility]; Protocol Last Admin: 01/28/23 08:50 Dose: 5 mg Atorvastatin Calcium (Atorvastatin Calcium 40 Mg Tablet) 40 mg PO DAILY [facility] Last Admin: 01/28/23 08:50 Dose: 40 mg Bisacodyl (Bisacodyl 5 Mg Tablet.Dr) 10 mg PO BEDTIME PRN PRN Reason: Constipation Last Admin: 01/28/23 20:34 Dose: 10 mg Magnesium Hydroxide (Milk Of Magnesia 30 Ml Oral.Susp) 30 ml PO DAILY PRN PRN Reason: Constipation Last Admin: 01/25/23 15:30 Dose: 30 ml Metoprolol Tartrate (Metoprolol Tartrate 12.5 Mg Halftab) 12.5 mg PO TID [facility]; Protocol Last Admin: 01/28/23 20:33 Dose: 12.5 mg Olanzapine (Olanzapine 5 Mg Tablet) 5 mg PO Q4H PRN PRN Reason: Agitation Last Admin: 01/20/23 13:14 Dose: 5 mg Olanzapine (Olanzapine 10 Mg Tablet) 10 mg PO BEDTIME SHAR Last Admin: 01/28/23 20:34 Dose: 10 mg Trazodone HCl (Trazodone Hcl 25 Mg Halftab) 25 mg PO BEDTIME MRX1 PRN PRN Reason: Insomnia Last Admin: 01/28/23 20:34 Dose: 25 mg Allergies Allergies Allergy/AdvReac Type Severity Reaction Status Date / Time Penicillins [PENICILLINS] Allergy Severe HIVES Verified 01/20/23 13:04 bee pollen [BEE STINGS] Allergy Unknown RASH Unverified 11/09/19 18:41 cortisone [CORTISONE] Allergy Unknown RASH Unverified 11/09/19 18:41 penicillin V Allergy Unknown rash Verified 08/07/19 00:00 Chocolate AdvReac Vomiting Verified 06/05/22 15:19 Benadryl Allergy Mild Vomiting Uncoded 06/05/22 15:19 bees Allergy Unknown swells up Uncoded 08/07/19 00:00 Assessment & Plan Assessment & Plan (1) Bipolar disorder: Status: Acute Code(s): F31.9 - Bipolar disorder, unspecified Plan the patient is an elderly female with a past history of bipolar disorder, cardiovascular disease, stroke, other medical comorbidities admitted for a manic episode since the patient stopped her Invega Sustenna due to side effects. At this moment the patient is grossly manic with psychotic symptoms unable to take care of herself. Even though that she has psychotic she understood that she needs to be in the hospital. Plan 1. We have increased Zyprexa up to 7.5 mg p.o. q.h.s. on January 18. on January 20 we were increasimg Zyprexa up to 10 mg p.o. q.h.s. on January 22 we increased up to 15 mg p.o. q.h.s. but later on we have to lowered to 10 mg because she was too sedated during the day. On January 28 she was still sedated but we will wait. On January 29 we decided to lowered to Zyprexa 7.5 p.o. q.h.s. 2. Cognitive assessment by Occupational therapist on January 27. She scored 16/30 on the [place] test and 3.4 in the [place] test. 3. Reassessment with results. Blood work for tomorrow January 29. 4. Family meeting for next Wednesday with her to discuss discharge planning. Reason for continued inpatient stay Substantial Risk for: inability to function, rapid decompensation and med/psych decompensation Time Spent With Patient Time: Total time managing care of this patient today _20___ minutes.
[2023-01-29] MEDS: amLODIPine Besylate 5 MG TABLET PO (09:05)
[2023-01-29] MEDS: Atorvastatin Calcium 40 MG TABLET PO (09:05)
[2023-01-29] MEDS: Metoprolol Tartrate 12.5 MG HALFTAB PO ×2 (09:05→16:24)
[2023-01-29 16:21] VITALS: BP 121/63; PULSE 82
[2023-01-29 18:00] VITALS: BP 103/60; PULSE 70; RESP 16; TEMP 36.4; O2SAT 96
[2023-01-29] MEDS: OLANZapine 7.5 MG TABLET PO (19:52)
[2023-01-29] MEDS: traZODone HCL 25 MG HALFTAB PO (19:52)
[2023-01-30 09:40] VITALS: BP 123/63; PULSE 96; RESP 15; TEMP 36.2; O2SAT 97
[2023-01-30] MEDS: Atorvastatin Calcium 40 MG TABLET PO (09:40)
[2023-01-30] MEDS: Metoprolol Tartrate 12.5 MG HALFTAB PO ×3 (09:40→20:01)
[2023-01-30] MEDS: amLODIPine Besylate 5 MG TABLET PO (09:40)
--- NOTE | 2023-01-30 11:01 | HO.PSYCHPN ---
Subjective Subjective Date of Service: 01/30/23 Reason For Visit: Dysregulated Subjective Notes: Conditional Voluntary Interim History: The nursing staff reported the patient slept well last night, metoprolol was held because his blood pressure was within normal limits. On interview the patient denies new symptoms she looks slightly sedated in the morning but more awake later in the day. We will have a family meeting next Wednesday for discharge planning Mental Status Exam Mental Status Exam Patient Appearance: Well Grooomed and Appropriate Patient Orientation: Person and Situation Level of Consciousness: Awake and Appropriate Patient Behavior: Guarded and Passive Mood Description: Withdrawn Affect Description: Constricted Patient Cognition Impaired: Yes Ability to Follow Directions: Good Speech Pattern: Clear Hallucinations: None Delusions: Not Present Thought Process: Linear Thought Content: positive for [place] and positive for Circumstantial Judgement: Fair Diagnostics Vital Signs (24Hr): Vital Signs - 24 hr 01/29/23 16:21 01/29/23 18:00 01/30/23 09:40 Temperature 97.5 F 97.1 F Pulse Rate 82 70 96 Respiratory Rate 16 15 Blood Pressure 121/63 103/60 123/63 Pulse Oximetry 96 97 Oxygen Delivery Method Room Air Room Air BMI result Body Mass Index 23.0 Labs 01/13/23 09:09 01/26/23 07:48 Imaging Radiology Impressions: ITS Impressions Chest X-Ray 01/13/23 10:09 IMPRESSION: No acute cardiopulmonary process seen. Medications Medications Current Medications Acetaminophen (Acetaminophen 325 Mg Tablet) 650 mg PO Q6H PRN PRN Reason: Headache/Pain Mild Scale (1-3) Last Admin: 01/24/23 08:13 Dose: 650 mg Al Hydroxide/Mg Hydroxide (Magnesium Hydrox/Alum Hydrox 30 Ml Oral.Susp) 30 ml PO Q6H PRN PRN Reason: Heartburn/Nausea Last Admin: 01/25/23 15:30 Dose: 30 ml Amlodipine Besylate (Amlodipine Besylate 5 Mg Tablet) 5 mg PO DAILY SHAR; Protocol Last Admin: 01/30/23 09:40 Dose: 5 mg Atorvastatin Calcium (Atorvastatin Calcium 40 Mg Tablet) 40 mg PO DAILY SHAR Last Admin: 01/30/23 09:40 Dose: 40 mg Bisacodyl (Bisacodyl 5 Mg Tablet.Dr) 10 mg PO BEDTIME PRN PRN Reason: Constipation Last Admin: 01/28/23 20:34 Dose: 10 mg Magnesium Hydroxide (Milk Of Magnesia 30 Ml Oral.Susp) 30 ml PO DAILY PRN PRN Reason: Constipation Last Admin: 01/25/23 15:30 Dose: 30 ml Metoprolol Tartrate (Metoprolol Tartrate 12.5 Mg Halftab) 12.5 mg PO TID SHAR; Protocol Last Admin: 01/30/23 09:40 Dose: 12.5 mg Olanzapine (Olanzapine 5 Mg Tablet) 5 mg PO Q4H PRN PRN Reason: Agitation Last Admin: 01/20/23 13:14 Dose: 5 mg Olanzapine (Olanzapine 7.5 Mg Tablet) 7.5 mg PO BEDTIME SHAR Last Admin: 01/29/23 19:52 Dose: 7.5 mg Trazodone HCl (Trazodone Hcl 25 Mg Halftab) 25 mg PO BEDTIME MRX1 PRN PRN Reason: Insomnia Last Admin: 01/29/23 19:52 Dose: 25 mg Allergies Allergies Allergy/AdvReac Type Severity Reaction Status Date / Time Penicillins [PENICILLINS] Allergy Severe HIVES Verified 01/29/23 09:07 bee pollen [BEE STINGS] Allergy Unknown RASH Verified 01/29/23 09:07 cortisone [CORTISONE] Allergy Unknown RASH Verified 01/29/23 09:07 penicillin V Allergy Unknown rash Verified 01/29/23 09:07 Chocolate AdvReac Vomiting Verified 01/29/23 09:07 Benadryl Allergy Mild Vomiting Uncoded 01/29/23 09:05 bees Allergy Unknown swells up Uncoded 01/29/23 09:05 Assessment & Plan Assessment & Plan (1) Bipolar disorder: Status: Acute Code(s): F31.9 - Bipolar disorder, unspecified Plan the patient is an elderly female with a past history of bipolar disorder, cardiovascular disease, stroke, other medical comorbidities admitted for a manic episode since the patient stopped her Invega Sustenna due to side effects. At this moment the patient is grossly manic with psychotic symptoms unable to take care of herself. Even though that she has psychotic she understood that she needs to be in the hospital. Plan 1. We have increased Zyprexa up to 7.5 mg p.o. q.h.s. on January 18. on January 20 we were increasimg Zyprexa up to 10 mg p.o. q.h.s. on January 22 we increased up to 15 mg p.o. q.h.s. but later on we have to lowered to 10 mg because she was too sedated during the day. On January 28 she was still sedated but we will wait. On January 29 we decided to lowered to Zyprexa 7.5 p.o. q.h.s. 2. Cognitive assessment by Occupational therapist on January 27. She scored 16/30 on the [place] test and 3.4 in the [place] test. 3. Reassessment with results. Blood work for tomorrow January 29. 4. Family meeting for next Wednesday with her to discuss discharge planning. Reason for continued inpatient stay Substantial Risk for: inability to function, rapid decompensation and med/psych decompensation Time Spent With Patient Time: Total time managing care of this patient today __20__ minutes.
[2023-01-30 15:00] VITALS: BP 109/53; PULSE 70
[2023-01-30 18:00] VITALS: BP 133/63; PULSE 68; RESP 18; TEMP 36.6; O2SAT 99
[2023-01-30] MEDS: OLANZapine 7.5 MG TABLET PO (20:01)
[2023-01-31 09:11] VITALS: BP 126/61; PULSE 86; RESP 15; TEMP 36.7; O2SAT 96
[2023-01-31] MEDS: Atorvastatin Calcium 40 MG TABLET PO (09:11)
[2023-01-31] MEDS: amLODIPine Besylate 5 MG TABLET PO (09:11)
[2023-01-31] MEDS: Metoprolol Tartrate 12.5 MG HALFTAB PO ×3 (09:11→21:28)
--- NOTE | 2023-01-31 11:01 | P.PNPSI_ITS ---
Subjective Subjective Date of Service: 01/31/23 Reason For Visit: Dysregulated Subjective Notes: Conditional Voluntary Interim History: The nursing staff reported the patient slept well last night she has been pleasant, with poor insight into her condition. In the morning yesterday she was slightly sedated. Today in the morning she stated that she was doing fine no evidence of psychosis or cony. We are going to order tomorrow morning blood work and we will have a family meeting tomorrow with her . Mental Status Exam Mental Status Exam Patient Appearance: Appropriate Patient Orientation: Person and Situation Level of Consciousness: Awake and Appropriate Patient Behavior: Guarded and Passive Mood Description: Withdrawn Affect Description: Constricted Patient Cognition Impaired: Yes Ability to Follow Directions: Good Speech Pattern: Clear Hallucinations: None Delusions: Not Present Thought Process: Distracted and Evasive Thought Content: positive for [place] and positive for Poverty of Content Judgement: Fair Diagnostics Vital Signs (24Hr): Vital Signs - 24 hr 01/30/23 15:00 01/30/23 18:00 01/31/23 09:11 Temperature 97.8 F 98.1 F Pulse Rate 70 68 86 Respiratory Rate 18 15 Blood Pressure 109/53 L 133/63 126/61 Pulse Oximetry 99 96 Oxygen Delivery Method Room Air Room Air BMI result Body Mass Index 23.0 Labs 01/13/23 09:09 01/26/23 07:48 Imaging Radiology Impressions: ITS Impressions Chest X-Ray 01/13/23 10:09 IMPRESSION: No acute cardiopulmonary process seen. Medications Medications Current Medications Acetaminophen (Acetaminophen 325 Mg Tablet) 650 mg PO Q6H PRN PRN Reason: Headache/Pain Mild Scale (1-3) Last Admin: 01/24/23 08:13 Dose: 650 mg Al Hydroxide/Mg Hydroxide (Magnesium Hydrox/Alum Hydrox 30 Ml Oral.Susp) 30 ml PO Q6H PRN PRN Reason: Heartburn/Nausea Last Admin: 01/25/23 15:30 Dose: 30 ml Amlodipine Besylate (Amlodipine Besylate 5 Mg Tablet) 5 mg PO DAILY SHAR; Protocol Last Admin: 01/31/23 09:11 Dose: 5 mg Atorvastatin Calcium (Atorvastatin Calcium 40 Mg Tablet) 40 mg PO DAILY SHAR Last Admin: 01/31/23 09:11 Dose: 40 mg Bisacodyl (Bisacodyl 5 Mg Tablet.Dr) 10 mg PO BEDTIME PRN PRN Reason: Constipation Last Admin: 01/28/23 20:34 Dose: 10 mg Magnesium Hydroxide (Milk Of Magnesia 30 Ml Oral.Susp) 30 ml PO DAILY PRN PRN Reason: Constipation Last Admin: 01/25/23 15:30 Dose: 30 ml Metoprolol Tartrate (Metoprolol Tartrate 12.5 Mg Halftab) 12.5 mg PO TID SHAR; Protocol Last Admin: 01/31/23 09:11 Dose: 12.5 mg Olanzapine (Olanzapine 5 Mg Tablet) 5 mg PO Q4H PRN PRN Reason: Agitation Last Admin: 01/20/23 13:14 Dose: 5 mg Olanzapine (Olanzapine 7.5 Mg Tablet) 7.5 mg PO BEDTIME SHAR Last Admin: 01/30/23 20:01 Dose: 7.5 mg Trazodone HCl (Trazodone Hcl 25 Mg Halftab) 25 mg PO BEDTIME MRX1 PRN PRN Reason: Insomnia Last Admin: 01/29/23 19:52 Dose: 25 mg Allergies Allergies Allergy/AdvReac Type Severity Reaction Status Date / Time Penicillins [PENICILLINS] Allergy Severe HIVES Verified 01/29/23 09:07 bee pollen [BEE STINGS] Allergy Unknown RASH Verified 01/29/23 09:07 cortisone [CORTISONE] Allergy Unknown RASH Verified 01/29/23 09:07 penicillin V Allergy Unknown rash Verified 01/29/23 09:07 Chocolate AdvReac Vomiting Verified 01/29/23 09:07 Benadryl Allergy Mild Vomiting Uncoded 01/29/23 09:05 bees Allergy Unknown swells up Uncoded 01/29/23 09:05 Assessment & Plan Assessment & Plan (1) Bipolar disorder: Status: Acute Code(s): F31.9 - Bipolar disorder, unspecified Plan the patient is an elderly female with a past history of bipolar disorder, cardiovascular disease, stroke, other medical comorbidities admitted for a manic episode since the patient stopped her Invega Sustenna due to side effects. At this moment the patient is grossly manic with psychotic symptoms unable to take care of herself. Even though that she has psychotic she understood that she needs to be in the hospital. Plan 1. We have increased Zyprexa up to 7.5 mg p.o. q.h.s. on January 18. on January 20 we were increasimg Zyprexa up to 10 mg p.o. q.h.s. on January 22 we increased up to 15 mg p.o. q.h.s. but later on we have to lowered to 10 mg because she was too sedated during the day. On January 28 she was still sedated but we will wait. On January 29 we decided to lowered to Zyprexa 7.5 p.o. q.h.s. 2. Cognitive assessment by Occupational therapist on January 27. She scored 16/30 on the [place] test and 3.4 in the [place] test. 3. Reassessment with results. Blood work for tomorrow January 29. 4. Family meeting for next Wednesday with her to discuss discharge planning. 5. Blood work for tomorrow morning Reason for continued inpatient stay Substantial Risk for: inability to function, rapid decompensation and med/psych decompensation Time Spent With Patient Time: Total time managing care of this patient today _20___ minutes.
[2023-01-31 14:51] VITALS: BP 140/70; PULSE 80
[2023-01-31 18:00] VITALS: BP 135/63; PULSE 74; RESP 18; TEMP 36; O2SAT 96
[2023-01-31] MEDS: OLANZapine 7.5 MG TABLET PO (21:29)
[2023-02-01 08:56] LABS: MANUAL DIFF FLAG NO
[2023-02-01 09:05] LABS: Basophils Absolute Auto 0.1 X10*3/uL (0.0-0.2); Basophils Percent Auto 1.5 % (0-2); Eosinophils Absolute Auto 0.2 X10*3/uL (0.0-0.4); Eosinophils Percent Auto 3.4 % (0-4); Hematocrit 36.3 % (37.0-47.0); Hemoglobin 11.8 g/dl (12.0-16.0); Imm Gran Abs Auto 0.01 X10*3/uL (0.00-0.03); Imm Gran Pct Auto 0.2 % (0.0-0.4); Lymphocytes Absolute Auto 1.7 X10*3/uL (1.2-4.9); Lymphocytes Percent Auto 35.5 % (20-40); Mean Corpuscular HGB Conc 32.5 g/dl (31.0-35.0); Mean Corpuscular Hemoglobin 29.2 pg (27.0-33.0); Mean Corpuscular Volume 89.9 fL (80.0-98.0); Mean Platelet Volume 11.4 fL (9.4-12.3); Monocytes Absolute Auto 0.4 X10*3/uL (0.1-1.2); Monocytes Percent Auto 7.9 % (2-11); Neutrophils Absolute Auto 2.4 x10*3/uL (2.0-8.3); Neutrophils Percent Auto 51.5 % (45-73); Platelet Count 192 X10*3/uL (160-400); Red Blood Count 4.04 X10*6/uL (4.20-5.50); Red Cell Distribution Width 13.8 % (11.0-16.0); White Blood Count 4.7 X10*3/uL (4.8-10.8)
[2023-02-01 09:15] LABS: Estimated Average Glucose 105 mg/dL; Hemoglobin A1c % 5.3 % (<6.0)
[2023-02-01 09:20] LABS: Alanine Aminotransferase 31 U/L (0-31); Albumin Level 3.2 g/dL (3.5-5.0); Alkaline Phosphatase 75 U/L (39-117); Anion Gap 11 (12-20); Aspartate Amino Transferase 24 U/L (5-31); Bilirubin Direct 0.1 mg/dL (0.0-0.5); Bilirubin Total 0.4 mg/dL (0.0-1.0); Blood Urea Nitrogen 14 mg/dL (9-16); Calcium 9.3 mg/dL (8.4-10.2); Carbon Dioxide 27 mmol/L (22-29); Chloride 108 mmol/L (96-108); Estimated Glomerular Filt Rate > 60; Glucose Random 117 mg/dL (60-115); Potassium 3.8 mmol/L (3.3-5.1); Sodium 142 mmol/L (135-145); Total Protein 5.8 g/dL (6.5-8.0)
[2023-02-01 11:38] VITALS: BP 141/67; PULSE 79; RESP 15; TEMP 36.2; O2SAT 97
[2023-02-01] MEDS: amLODIPine Besylate 5 MG TABLET PO (11:39)
[2023-02-01] MEDS: Atorvastatin Calcium 40 MG TABLET PO (11:39)
[2023-02-01] MEDS: Metoprolol Tartrate 12.5 MG HALFTAB PO ×3 (11:39→20:35)
--- NOTE | 2023-02-01 14:38 | HO.PSYCHPN ---
Subjective Subjective Date of Service: 02/01/23 Reason For Visit: Dysregulated Subjective Notes: Conditional Voluntary Interim History: The nursing staff reported the patient had been compliant with medications she denies anxiety she slept 8 hours. Today we had a family meeting with her and explained the goals and discharge planning. On interview the patient reports that her cony is much better still with some cognitive impairment. We discussed discharge planning at length. Mental Status Exam Mental Status Exam Patient Appearance: Well Grooomed and Appropriate Patient Orientation: Person and Situation Level of Consciousness: Awake and Appropriate Patient Behavior: Guarded and Passive Mood Description: Withdrawn Affect Description: Constricted Patient Cognition Impaired: Yes Ability to Follow Directions: Good Speech Pattern: Clear Hallucinations: None Delusions: Not Present Thought Process: Distracted Thought Content: positive for Circumstantial Judgement: Fair Diagnostics Vital Signs (24Hr): Vital Signs - 24 hr 01/31/23 14:51 01/31/23 18:00 02/01/23 11:38 Temperature 96.8 F 97.1 F Pulse Rate 80 74 79 Respiratory Rate 18 15 Blood Pressure 140/70 H 135/63 141/67 H Pulse Oximetry 96 97 Oxygen Delivery Method Room Air Room Air BMI result Body Mass Index 23.0 Labs 02/01/23 08:48 02/01/23 08:48 Labs: Laboratory Results - last 48 hr 02/01/23 08:48 WBC 4.7 L RBC 4.04 L Hgb 11.8 L Hct 36.3 L MCV 89.9 MCH 29.2 MCHC 32.5 RDW 13.8 Plt Count 192 MPV 11.4 Immature Gran % (Auto) 0.2 Neut % (Auto) 51.5 Lymph % (Auto) 35.5 [place] % (Auto) 7.9 Eos % (Auto) 3.4 Baso % (Auto) 1.5 Lymph # (Auto) 1.7 [place] # (Auto) 0.4 Eos # (Auto) 0.2 Baso # (Auto) 0.1 Abs Immat Gran (auto) 0.01 Absolute Neuts (auto) 2.4 Absolute Nucleated RBC 0.000 Nucleated RBC % (auto) 0.0 Sodium 142 Potassium 3.8 Chloride 108 Carbon Dioxide 27 Anion Gap 11 L BUN 14 Creatinine 0.82 Estim Creat Clear Calc 50.0 Estimated GFR > 60 Random Glucose 117 H Estimat Average Glucose 105 Hemoglobin A1c % 5.3 Calcium 9.3 Total Bilirubin 0.4 Direct Bilirubin 0.1 AST 24 ALT 31 Alkaline Phosphatase 75 Total Protein 5.8 L Albumin 3.2 L Imaging Radiology Impressions: ITS Impressions Chest X-Ray 01/13/23 10:09 IMPRESSION: No acute cardiopulmonary process seen. Medications Medications Current Medications Acetaminophen (Acetaminophen 325 Mg Tablet) 650 mg PO Q6H PRN PRN Reason: Headache/Pain Mild Scale (1-3) Last Admin: 01/24/23 08:13 Dose: 650 mg Al Hydroxide/Mg Hydroxide (Magnesium Hydrox/Alum Hydrox 30 Ml Oral.Susp) 30 ml PO Q6H PRN PRN Reason: Heartburn/Nausea Last Admin: 01/25/23 15:30 Dose: 30 ml Amlodipine Besylate (Amlodipine Besylate 5 Mg Tablet) 5 mg PO DAILY SHAR; Protocol Last Admin: 02/01/23 11:39 Dose: 5 mg Atorvastatin Calcium (Atorvastatin Calcium 40 Mg Tablet) 40 mg PO DAILY SHAR Last Admin: 02/01/23 11:39 Dose: 40 mg Bisacodyl (Bisacodyl 5 Mg Tablet.Dr) 10 mg PO BEDTIME PRN PRN Reason: Constipation Last Admin: 01/28/23 20:34 Dose: 10 mg Magnesium Hydroxide (Milk Of Magnesia 30 Ml Oral.Susp) 30 ml PO DAILY PRN PRN Reason: Constipation Last Admin: 01/25/23 15:30 Dose: 30 ml Metoprolol Tartrate (Metoprolol Tartrate 12.5 Mg Halftab) 12.5 mg PO TID SHAR; Protocol Last Admin: 02/01/23 11:39 Dose: 12.5 mg Olanzapine (Olanzapine 5 Mg Tablet) 5 mg PO Q4H PRN PRN Reason: Agitation Last Admin: 01/20/23 13:14 Dose: 5 mg Olanzapine (Olanzapine 7.5 Mg Tablet) 7.5 mg PO BEDTIME SHAR Last Admin: 01/31/23 21:29 Dose: 7.5 mg Trazodone HCl (Trazodone Hcl 25 Mg Halftab) 25 mg PO BEDTIME MRX1 PRN PRN Reason: Insomnia Last Admin: 01/29/23 19:52 Dose: 25 mg Allergies Allergies Allergy/AdvReac Type Severity Reaction Status Date / Time Penicillins [PENICILLINS] Allergy Severe HIVES Verified 01/29/23 09:07 bee pollen [BEE STINGS] Allergy Unknown RASH Verified 01/29/23 09:07 cortisone [CORTISONE] Allergy Unknown RASH Verified 01/29/23 09:07 penicillin V Allergy Unknown rash Verified 01/29/23 09:07 Chocolate AdvReac Vomiting Verified 01/29/23 09:07 Benadryl Allergy Mild Vomiting Uncoded 01/29/23 09:05 bees Allergy Unknown swells up Uncoded 01/29/23 09:05 Assessment & Plan Assessment & Plan (1) Bipolar disorder: Status: Acute Code(s): F31.9 - Bipolar disorder, unspecified Plan the patient is an elderly female with a past history of bipolar disorder, cardiovascular disease, stroke, other medical comorbidities admitted for a manic episode since the patient stopped her Invega Sustenna due to side effects. At this moment the patient is grossly manic with psychotic symptoms unable to take care of herself. Even though that she has psychotic she understood that she needs to be in the hospital. Plan 1. We have increased Zyprexa up to 7.5 mg p.o. q.h.s. on January 18. on January 20 we were increasimg Zyprexa up to 10 mg p.o. q.h.s. on January 22 we increased up to 15 mg p.o. q.h.s. but later on we have to lowered to 10 mg because she was too sedated during the day. On January 28 she was still sedated but we will wait. On January 29 we decided to lowered to Zyprexa 7.5 p.o. q.h.s. 2. Cognitive assessment by Occupational therapist on January 27. She scored 16/30 on the [place] test and 3.4 in the [place] test. 3. Reassessment with results. Blood work for tomorrow January 29. 4. Family meeting for next Wednesday with her to discuss discharge planning. 5. Blood work for tomorrow morning Reason for continued inpatient stay Substantial Risk for: inability to function, rapid decompensation and med/psych decompensation Time Spent With Patient Time: Total time managing care of this patient today _20___ minutes.
[2023-02-01 14:53] VITALS: BP 109/60; PULSE 72
[2023-02-01 19:35] VITALS: BP 104/52; PULSE 70; RESP 18; TEMP 36.9; O2SAT 96
[2023-02-01] MEDS: OLANZapine 7.5 MG TABLET PO (20:35)
[2023-02-02 08:28] VITALS: BP 119/66; PULSE 81; RESP 18; TEMP 36.6; O2SAT 96
[2023-02-02] MEDS: Atorvastatin Calcium 40 MG TABLET PO (10:42)
[2023-02-02] MEDS: amLODIPine Besylate 5 MG TABLET PO (10:42)
[2023-02-02] MEDS: Metoprolol Tartrate 12.5 MG HALFTAB PO ×3 (10:42→21:12)
--- NOTE | 2023-02-02 11:58 | HO.PSYCHPN ---
Subjective Subjective Date of Service: 02/02/23 Reason For Visit: Dysregulated Subjective Notes: Conditional Voluntary Interim History: The nursing staff reported the patient had been compliant with treatment, she slept 8 hours. Yesterday we have a family meeting and the is willing to take her back on Wednesday. Apparently the affirmed healthcare proxy is her son. On interview the patient denies new symptoms less manic but still some cognitive impairment at its evident. Mental Status Exam Mental Status Exam Patient Appearance: Well Grooomed Patient Orientation: Person Level of Consciousness: Awake Patient Behavior: Guarded and Passive Mood Description: Withdrawn Affect Description: Constricted Patient Cognition Impaired: Yes Ability to Follow Directions: Good Speech Pattern: Clear Hallucinations: None Delusions: Not Present Thought Process: Distracted and Evasive Thought Content: positive for [place] and positive for Poverty of Content Judgement: Fair Diagnostics Vital Signs (24Hr): Vital Signs - 24 hr 02/01/23 14:53 02/01/23 19:35 02/02/23 08:28 Temperature 98.4 F 97.8 F Pulse Rate 72 70 81 Respiratory Rate 18 18 Blood Pressure 109/60 104/52 L 119/66 Pulse Oximetry 96 96 Oxygen Delivery Method Room Air Room Air BMI result Body Mass Index 23.0 Labs 02/01/23 08:48 02/01/23 08:48 Labs: Laboratory Results - last 48 hr 02/01/23 08:48 WBC 4.7 L RBC 4.04 L Hgb 11.8 L Hct 36.3 L MCV 89.9 MCH 29.2 MCHC 32.5 RDW 13.8 Plt Count 192 MPV 11.4 Immature Gran % (Auto) 0.2 Neut % (Auto) 51.5 Lymph % (Auto) 35.5 [place] % (Auto) 7.9 Eos % (Auto) 3.4 Baso % (Auto) 1.5 Lymph # (Auto) 1.7 [place] # (Auto) 0.4 Eos # (Auto) 0.2 Baso # (Auto) 0.1 Abs Immat Gran (auto) 0.01 Absolute Neuts (auto) 2.4 Absolute Nucleated RBC 0.000 Nucleated RBC % (auto) 0.0 Sodium 142 Potassium 3.8 Chloride 108 Carbon Dioxide 27 Anion Gap 11 L BUN 14 Creatinine 0.82 Estim Creat Clear Calc 50.0 Estimated GFR > 60 Random Glucose 117 H Estimat Average Glucose 105 Hemoglobin A1c % 5.3 Calcium 9.3 Total Bilirubin 0.4 Direct Bilirubin 0.1 AST 24 ALT 31 Alkaline Phosphatase 75 Total Protein 5.8 L Albumin 3.2 L Imaging Radiology Impressions: ITS Impressions Chest X-Ray 01/13/23 10:09 IMPRESSION: No acute cardiopulmonary process seen. Medications Medications Current Medications Acetaminophen (Acetaminophen 325 Mg Tablet) 650 mg PO Q6H PRN PRN Reason: Headache/Pain Mild Scale (1-3) Last Admin: 01/24/23 08:13 Dose: 650 mg Al Hydroxide/Mg Hydroxide (Magnesium Hydrox/Alum Hydrox 30 Ml Oral.Susp) 30 ml PO Q6H PRN PRN Reason: Heartburn/Nausea Last Admin: 01/25/23 15:30 Dose: 30 ml Amlodipine Besylate (Amlodipine Besylate 5 Mg Tablet) 5 mg PO DAILY SHAR; Protocol Last Admin: 02/02/23 10:42 Dose: 5 mg Atorvastatin Calcium (Atorvastatin Calcium 40 Mg Tablet) 40 mg PO DAILY SHAR Last Admin: 02/02/23 10:42 Dose: 40 mg Bisacodyl (Bisacodyl 5 Mg Tablet.Dr) 10 mg PO BEDTIME PRN PRN Reason: Constipation Last Admin: 01/28/23 20:34 Dose: 10 mg Magnesium Hydroxide (Milk Of Magnesia 30 Ml Oral.Susp) 30 ml PO DAILY PRN PRN Reason: Constipation Last Admin: 01/25/23 15:30 Dose: 30 ml Metoprolol Tartrate (Metoprolol Tartrate 12.5 Mg Halftab) 12.5 mg PO TID SHAR; Protocol Last Admin: 02/02/23 10:42 Dose: 12.5 mg Olanzapine (Olanzapine 5 Mg Tablet) 5 mg PO Q4H PRN PRN Reason: Agitation Last Admin: 01/20/23 13:14 Dose: 5 mg Olanzapine (Olanzapine 7.5 Mg Tablet) 7.5 mg PO BEDTIME SHAR Last Admin: 02/01/23 20:35 Dose: 7.5 mg Trazodone HCl (Trazodone Hcl 25 Mg Halftab) 25 mg PO BEDTIME MRX1 PRN PRN Reason: Insomnia Last Admin: 01/29/23 19:52 Dose: 25 mg Allergies Allergies Allergy/AdvReac Type Severity Reaction Status Date / Time Penicillins [PENICILLINS] Allergy Severe HIVES Verified 01/29/23 09:07 bee pollen [BEE STINGS] Allergy Unknown RASH Verified 01/29/23 09:07 cortisone [CORTISONE] Allergy Unknown RASH Verified 01/29/23 09:07 penicillin V Allergy Unknown rash Verified 01/29/23 09:07 Chocolate AdvReac Vomiting Verified 01/29/23 09:07 Benadryl Allergy Mild Vomiting Uncoded 01/29/23 09:05 bees Allergy Unknown swells up Uncoded 01/29/23 09:05 Assessment & Plan Assessment & Plan (1) Bipolar disorder: Status: Acute Code(s): F31.9 - Bipolar disorder, unspecified Plan the patient is an elderly female with a past history of bipolar disorder, cardiovascular disease, stroke, other medical comorbidities admitted for a manic episode since the patient stopped her Invega Sustenna due to side effects. At this moment the patient is grossly manic with psychotic symptoms unable to take care of herself. Even though that she has psychotic she understood that she needs to be in the hospital. Plan 1. We have increased Zyprexa up to 7.5 mg p.o. q.h.s. on January 18. on January 20 we were increasimg Zyprexa up to 10 mg p.o. q.h.s. on January 22 we increased up to 15 mg p.o. q.h.s. but later on we have to lowered to 10 mg because she was too sedated during the day. On January 28 she was still sedated but we will wait. On January 29 we decided to lowered to Zyprexa 7.5 p.o. q.h.s. 2. Cognitive assessment by Occupational therapist on January 27. She scored 16/30 on the [place] test and 3.4 in the [place] test. 3. Reassessment with results. Blood work for tomorrow January 29. 4. Family meeting for next Wednesday with her to discuss discharge planning. 5. Blood work for tomorrow morning Reason for continued inpatient stay Substantial Risk for: inability to function, rapid decompensation and med/psych decompensation Time Spent With Patient Time: Total time managing care of this patient today __20__ minutes.
[2023-02-02 14:36] VITALS: BP 127/60
[2023-02-02] MEDS: Magnesium Hydrox/Alum Hydrox 30 ML ORAL.SUSP PO (14:37)
[2023-02-02 18:50] VITALS: BP 136/63; PULSE 69; RESP 14; TEMP 37.6; O2SAT 96
[2023-02-02] MEDS: OLANZapine 7.5 MG TABLET PO (21:13)
[2023-02-03 07:36] VITALS: BP 139/76; PULSE 74; RESP 18; TEMP 36.3; O2SAT 96
[2023-02-03] MEDS: Metoprolol Tartrate 12.5 MG HALFTAB PO ×3 (08:32→20:40)
[2023-02-03] MEDS: amLODIPine Besylate 5 MG TABLET PO (08:32)
[2023-02-03] MEDS: Atorvastatin Calcium 40 MG TABLET PO (08:32)
[2023-02-03 14:40] VITALS: BP 116/65; PULSE 75
--- NOTE | 2023-02-03 15:56 | MHC.CLN ---
F/U DIET=REGULAR. NO REPORTED CONCERNS WITH INTAKE. HAS MODERATE, FAVORABLE WEIGHT GAIN SINCE ADMISSION. FOLLOW FOR INTAKE AND WEIGHT. RD TO FOLLOW WEEKLY.
--- NOTE | 2023-02-03 17:28 | P.PNPSI_ITS ---
Subjective Subjective Date of Service: 02/03/23 Reason For Visit: Dysregulated Interim History: Met with patient; discussed with team Patient reports that she is happy and says I can not complain... Patient says she feels fine and is looking forward to discharge tomorrow. Staff reports patient shower today, remains cooperative, taking medications and eating well. Mental Status Exam Mental Status Exam Patient Appearance: Well Grooomed Patient Orientation: Person Level of Consciousness: Awake Patient Behavior: Guarded and Passive Mood Description: Appropriate (I'm happy) Affect Description: Calm and Cheerful Patient Cognition Impaired: Yes Ability to Follow Directions: Good Speech Pattern: Clear Hallucinations: None Delusions: Not Present Thought Process: Distracted and Goal Oriented Thought Content: positive for [place] Judgement: Fair Diagnostics Vital Signs (24Hr): Vital Signs - 24 hr 02/02/23 18:50 02/03/23 07:36 02/03/23 14:40 Temperature 99.6 F 97.4 F Pulse Rate 69 74 75 Respiratory Rate 14 18 Blood Pressure 136/63 139/76 116/65 Pulse Oximetry 96 96 Oxygen Delivery Method Room Air Room Air BMI result Body Mass Index 23.0 Labs 02/01/23 08:48 02/01/23 08:48 Imaging Radiology Impressions: ITS Impressions Chest X-Ray 01/13/23 10:09 IMPRESSION: No acute cardiopulmonary process seen. Medications Medications Current Medications Acetaminophen (Acetaminophen 325 Mg Tablet) 650 mg PO Q6H PRN PRN Reason: Headache/Pain Mild Scale (1-3) Last Admin: 01/24/23 08:13 Dose: 650 mg Al Hydroxide/Mg Hydroxide (Magnesium Hydrox/Alum Hydrox 30 Ml Oral.Susp) 30 ml PO Q6H PRN PRN Reason: Heartburn/Nausea Last Admin: 02/02/23 14:37 Dose: 30 ml Amlodipine Besylate (Amlodipine Besylate 5 Mg Tablet) 5 mg PO DAILY SHAR; Protocol Last Admin: 02/03/23 08:32 Dose: 5 mg Atorvastatin Calcium (Atorvastatin Calcium 40 Mg Tablet) 40 mg PO DAILY SHAR Last Admin: 02/03/23 08:32 Dose: 40 mg Bisacodyl (Bisacodyl 5 Mg Tablet.Dr) 10 mg PO BEDTIME PRN PRN Reason: Constipation Last Admin: 01/28/23 20:34 Dose: 10 mg Magnesium Hydroxide (Milk Of Magnesia 30 Ml Oral.Susp) 30 ml PO DAILY PRN PRN Reason: Constipation Last Admin: 01/25/23 15:30 Dose: 30 ml Metoprolol Tartrate (Metoprolol Tartrate 12.5 Mg Halftab) 12.5 mg PO TID SHAR; Protocol Last Admin: 02/03/23 14:50 Dose: 12.5 mg Olanzapine (Olanzapine 5 Mg Tablet) 5 mg PO Q4H PRN PRN Reason: Agitation Last Admin: 01/20/23 13:14 Dose: 5 mg Olanzapine (Olanzapine 7.5 Mg Tablet) 7.5 mg PO BEDTIME SHAR Last Admin: 02/02/23 21:13 Dose: 7.5 mg Trazodone HCl (Trazodone Hcl 25 Mg Halftab) 25 mg PO BEDTIME MRX1 PRN PRN Reason: Insomnia Last Admin: 01/29/23 19:52 Dose: 25 mg Allergies Allergies Allergy/AdvReac Type Severity Reaction Status Date / Time Penicillins [PENICILLINS] Allergy Severe HIVES Verified 01/29/23 09:07 bee pollen [BEE STINGS] Allergy Unknown RASH Verified 01/29/23 09:07 cortisone [CORTISONE] Allergy Unknown RASH Verified 01/29/23 09:07 penicillin V Allergy Unknown rash Verified 01/29/23 09:07 Chocolate AdvReac Vomiting Verified 01/29/23 09:07 Benadryl Allergy Mild Vomiting Uncoded 01/29/23 09:05 bees Allergy Unknown swells up Uncoded 01/29/23 09:05 Assessment & Plan Assessment & Plan (1) Bipolar disorder: Status: Acute Code(s): F31.9 - Bipolar disorder, unspecified Plan the patient is an elderly female with a past history of bipolar disorder, cardiovascular disease, stroke, other medical comorbidities admitted for a manic episode since the patient stopped her Invega Sustenna due to side effects. At this moment the patient is grossly manic with psychotic symptoms unable to take care of herself. Even though that she has psychotic she understood that she needs to be in the hospital. 02/03 Patient reports that she is happy and says I can not complain... Patient says she feels fine and is looking forward to discharge tomorrow. Staff reports patient shower today, remains cooperative, taking medications and eating well. Plan 1. We have increased Zyprexa up to 7.5 mg p.o. q.h.s. on January 18. on January 20 we were increasimg Zyprexa up to 10 mg p.o. q.h.s. on January 22 we increased up to 15 mg p.o. q.h.s. but later on we have to lowered to 10 mg because she was too sedated during the day. On January 28 she was still sedated but we will wait. On January 29 we decided to lowered to Zyprexa 7.5 p.o. q.h.s. 2. Cognitive assessment by Occupational therapist on January 27. She scored 16/30 on the [place] test and 3.4 in the [place] test. 3. Reassessment with results. Blood work for tomorrow January 29. 4. Family meeting for next Wednesday with her to discuss discharge planning. 5. Blood work for tomorrow morning Patient educated on: diagnosis Informed Consent: understands, does not understand and further education needed Reason for continued inpatient stay Substantial Risk for: stable for discharge Time Spent With Patient Time: Total time managing care of this patient today ____ minutes.
[2023-02-03 18:00] VITALS: BP 136/66; PULSE 70; RESP 16; TEMP 36; O2SAT 96
[2023-02-03] MEDS: OLANZapine 7.5 MG TABLET PO (20:41)
[2023-02-04 07:00] VITALS: BMI 27.9
[2023-02-04 07:40] VITALS: BP 127/64; PULSE 86; RESP 18; TEMP 36.6; O2SAT 95
[2023-02-04] MEDS: Atorvastatin Calcium 40 MG TABLET PO (08:25)
[2023-02-04] MEDS: amLODIPine Besylate 5 MG TABLET PO (08:25)
[2023-02-04] MEDS: Metoprolol Tartrate 12.5 MG HALFTAB PO ×3 (08:25→22:16)
[2023-02-04 14:24] VITALS: BP 122/57; PULSE 81
--- NOTE | 2023-02-04 15:33 | HO.PSYCHPN ---
Subjective Subjective Date of Service: 02/04/23 Reason For Visit: Dysregulated Subjective Notes: Conditional Voluntary Interim History: The nursing staff reported the patient had been pleasant, cooperative, attending to groups. The social worker masters reported that they are referring her today program and she will be discharged most likely tomorrow. On interview the patient denies new symptoms, confused at times but easily redirectable. Mental Status Exam Mental Status Exam Patient Appearance: Well Grooomed and Appropriate Patient Orientation: Person and Situation Level of Consciousness: Awake and Appropriate Patient Behavior: Guarded and Passive Mood Description: Withdrawn Affect Description: Constricted Patient Cognition Impaired: Yes Ability to Follow Directions: Good Speech Pattern: Clear Hallucinations: None Delusions: Not Present Thought Process: Distracted Thought Content: positive for [place] and positive for [place]overty of Content Judgement: Fair Diagnostics Vital Signs (24Hr): Vital Signs - 24 hr 02/03/23 18:00 02/04/23 07:40 02/04/23 14:24 Temperature 96.8 F 97.9 F Pulse Rate 70 86 81 Respiratory Rate 16 18 Blood Pressure 136/66 127/64 122/57 L Pulse Oximetry 96 95 Oxygen Delivery Method Room Air Room Air BMI result Body Mass Index 27.9 Labs 02/01/23 08:48 02/01/23 08:48 Imaging Radiology Impressions: ITS Impressions Chest X-Ray 01/13/23 10:09 IMPRESSION: No acute cardiopulmonary process seen. Medications Medications Current Medications Acetaminophen (Acetaminophen 325 Mg Tablet) 650 mg PO Q6H PRN PRN Reason: Headache/Pain Mild Scale (1-3) Last Admin: 01/24/23 08:13 Dose: 650 mg Al Hydroxide/Mg Hydroxide (Magnesium Hydrox/Alum Hydrox 30 Ml Oral.Susp) 30 ml PO Q6H PRN PRN Reason: Heartburn/Nausea Last Admin: 02/02/23 14:37 Dose: 30 ml Amlodipine Besylate (Amlodipine Besylate 5 Mg Tablet) 5 mg PO DAILY SHAR; Protocol Last Admin: 02/04/23 08:25 Dose: 5 mg Atorvastatin Calcium (Atorvastatin Calcium 40 Mg Tablet) 40 mg PO DAILY SHAR Last Admin: 02/04/23 08:25 Dose: 40 mg Bisacodyl (Bisacodyl 5 Mg Tablet.Dr) 10 mg PO BEDTIME PRN PRN Reason: Constipation Last Admin: 01/28/23 20:34 Dose: 10 mg Magnesium Hydroxide (Milk Of Magnesia 30 Ml Oral.Susp) 30 ml PO DAILY PRN PRN Reason: Constipation Last Admin: 01/25/23 15:30 Dose: 30 ml Metoprolol Tartrate (Metoprolol Tartrate 12.5 Mg Halftab) 12.5 mg PO TID SHAR; Protocol Last Admin: 02/04/23 14:34 Dose: 12.5 mg Olanzapine (Olanzapine 5 Mg Tablet) 5 mg PO Q4H PRN PRN Reason: Agitation Last Admin: 01/20/23 13:14 Dose: 5 mg Olanzapine (Olanzapine 7.5 Mg Tablet) 7.5 mg PO BEDTIME SHAR Last Admin: 02/03/23 20:41 Dose: 7.5 mg Trazodone HCl (Trazodone Hcl 25 Mg Halftab) 25 mg PO BEDTIME MRX1 PRN PRN Reason: Insomnia Last Admin: 01/29/23 19:52 Dose: 25 mg Allergies Allergies Allergy/AdvReac Type Severity Reaction Status Date / Time Penicillins [PENICILLINS] Allergy Severe HIVES Verified 01/29/23 09:07 bee pollen [BEE STINGS] Allergy Unknown RASH Verified 01/29/23 09:07 cortisone [CORTISONE] Allergy Unknown RASH Verified 01/29/23 09:07 penicillin V Allergy Unknown rash Verified 01/29/23 09:07 Chocolate AdvReac Vomiting Verified 01/29/23 09:07 Benadryl Allergy Mild Vomiting Uncoded 01/29/23 09:05 bees Allergy Unknown swells up Uncoded 01/29/23 09:05 Assessment & Plan Assessment & Plan (1) Bipolar disorder: Status: Acute Code(s): F31.9 - Bipolar disorder, unspecified Plan the patient is an elderly female with a past history of bipolar disorder, cardiovascular disease, stroke, other medical comorbidities admitted for a manic episode since the patient stopped her Invega Sustenna due to side effects. At this moment the patient is grossly manic with psychotic symptoms unable to take care of herself. Even though that she has psychotic she understood that she needs to be in the hospital. 02/03 Patient reports that she is happy and says I can not complain... Patient says she feels fine and is looking forward to discharge tomorrow. Staff reports patient shower today, remains cooperative, taking medications and eating well. Plan 1. We have increased Zyprexa up to 7.5 mg p.o. q.h.s. on January 18. on January 20 we were increasimg Zyprexa up to 10 mg p.o. q.h.s. on January 22 we increased up to 15 mg p.o. q.h.s. but later on we have to lowered to 10 mg because she was too sedated during the day. On January 28 she was still sedated but we will wait. On January 29 we decided to lowered to Zyprexa 7.5 p.o. q.h.s. 2. Cognitive assessment by Occupational therapist on January 27. She scored 16/30 on the [place] test and 3.4 in the [place] test. 3. Reassessment with results. Blood work for tomorrow January 29. 4. Family meeting for next Wednesday with her to discuss discharge planning. 5. Blood work for tomorrow morning, it came within normal limits. 6. Discharge tomorrow Reason for continued inpatient stay Substantial Risk for: inability to function, rapid decompensation and med/psych decompensation Time Spent With Patient Time: Total time managing care of this patient today __20__ minutes.
[2023-02-04 18:35] VITALS: BP 116/66; PULSE 68; RESP 18; TEMP 36.3; O2SAT 98
[2023-02-04 22:14] VITALS: BP 144/76; PULSE 64
[2023-02-04] MEDS: OLANZapine 7.5 MG TABLET PO (22:16)
--- NOTE | 2023-02-05 07:31 | PM.PSYDC ---
DS: Providers Provider Date of Service: 02/05/23 Date of admission: 01/13/23 16:37 Date of discharge: 02/05/23 Primary care physician: Reggie Monk MD Attending physician on discharge: Davis Jiang DS: Diagnosis Discharge Diagnosis (1) Bipolar disorder: Status: Acute DS: Medications Discharge Medications Home Medications: Previous Rx's Medication Instructions Recorded acetaminophen 325 mg tablet 975 mg (3 x 325 mg) PO Q6H PRN 06/25/22 Pain, Mild #90 tabs amlodipine 5 mg tablet 5 mg PO DAILY 30 days #30 tabs 06/25/22 aspirin 81 mg chewable tablet 81 mg PO DAILY #30 tabs 06/25/22 atorvastatin 40 mg tablet 40 mg PO DAILY 30 days #30 tabs 06/25/22 cholecalciferol (vitamin D3) 250 250 mcg PO DAILY #30 caps 06/25/22 mcg (10,000 unit) capsule docusate sodium 100 mg capsule 100 mg PO BID PRN Constipation #60 06/25/22 caps fluticasone furoate 50 50 mcg inhalation BID #30 ea 06/25/22 mcg/actuation blister powder for inhalation multivitamin 1 tab PO DAILY #30 tabs 06/25/22 omeprazole 20 mg capsule,delayed 20 mg PO DAILY 30 days #30 caps 06/25/22 release paliperidone palmitate 117 mg/0.75 117 mg (0.75 mL) IM Q30D #0.75 mL 06/25/22 mL intramuscular syringe (Invega Sustenna) paliperidone palmitate 117 mg/0.75 117 mg (0.75 mL) IM Q30D #0.75 mL 06/25/22 mL intramuscular syringe (Invega Sustenna) trazodone 50 mg tablet 50 mg PO BEDTIME 30 days #30 tabs 06/25/22 trazodone 50 mg tablet 50 mg PO BEDTIME PRN Insomnia 30 06/25/22 days #30 tabs Mental Status Exam Mental Status Exam Patient Appearance: Well Grooomed and Appropriate Patient Orientation: Person and Situation Level of Consciousness: Awake and Appropriate Patient Behavior: Guarded and Passive Mood Description: Calm Affect Description: Constricted Patient Cognition Impaired: Yes Ability to Follow Directions: Good Speech Pattern: Clear Hallucinations: None Delusions: Not Present Thought Process: Distracted and Slowed Thinking Thought Content: positive for [place] and positive for Poverty of Content Judgement: Fair Data Data Completed and Pending Completed studies during hospitalization [Text1]: 02/01/23 08:48 WBC 4.7 L RBC 4.04 L Hgb 11.8 L Hct 36.3 L MCV 89.9 MCH 29.2 MCHC 32.5 RDW 13.8 Plt Count 192 MPV 11.4 Immature Gran % (Auto) 0.2 Neut % (Auto) 51.5 Lymph % (Auto) 35.5 [place] % (Auto) 7.9 Eos % (Auto) 3.4 Baso % (Auto) 1.5 Lymph # (Auto) 1.7 [place] # (Auto) 0.4 Eos # (Auto) 0.2 Baso # (Auto) 0.1 Abs Immat Gran (auto) 0.01 Absolute Neuts (auto) 2.4 Absolute Nucleated RBC 0.000 Nucleated RBC % (auto) 0.0 Sodium 142 Potassium 3.8 Chloride 108 Carbon Dioxide 27 Anion Gap 11 L BUN 14 Creatinine 0.82 Estim Creat Clear Calc 50.0 Estimated GFR > 60 Random Glucose 117 H Estimat Average Glucose 105 Hemoglobin A1c % 5.3 Calcium 9.3 Total Bilirubin 0.4 Direct Bilirubin 0.1 AST 24 ALT 31 Alkaline Phosphatase 75 Total Protein 5.8 L Albumin 3.2 L 01/13/23 Unknown Urine clean catch - Urine olsen top Urine Culture - Final Imaging Diagnostic Imaging Impressions Chest X-Ray 01/13/23 10:09 IMPRESSION: No acute cardiopulmonary process seen. DS: Summary Hospital Course Hospital Course: The patient is a 77-year-old female, , very well known by this team since he had been admitted before with a diagnosis of bipolar disorder. The patient was discharged a few months ago on Invega Sustenna but apparently she was unable to tolerate due to over-sedation and other side effects. The patient was brought to the emergency room by her since she was having manic symptoms elicited by racing thoughts, shopping sprees, poor sleep and restlessness. Please see the HPI of the admission note for further details. She was assessed by crisis and transferring to this facility for psychiatric stabilization. On admission we discussed risks, benefits, side-effects and alternatives and she agreed to try Zyprexa that with titrated fast up to 15 mg p.o. q.h.s.. The patient was over-sedated but still manic. Eventually we start taper it off slowly up to 7.5 mg p.o. q.h.s. with for tolerability and resolution of cony. We had several family meetings with the who in was not very well inform about the cony and other symptoms of her bipolar disorder. She was psycho educated into her condition. The patient was able to participate in groups, she was future oriented and there were no evidence of manic symptoms. The occupational therapist did a [place] test and she score 60/30 and her [place] test was quite low. There is a clear lowering on her functionality in the last months and we addressed that at this moment the patient refused to take any other medications for dementia at this point. Since the patient was not manic anymore and there were no safety concerns discharge planning was discussed. Time spent discussing smoking cessation with patient: 3 to 10 minutes Status at Discharge Cognitive/behavioral status at discharge: Impaired at baseline Functional status at discharge: independent ambulation Overall status at discharge: patient is back to baseline Time Spent with Patient Time attestation: Total time managing care of this patient today _30___ minutes. Time spent: Less than 30 minutes Discharge Plan Discharge Anticipated Discharge Date/Time: 02/05/23 11:00 Patient Disposition: Home, Self-Care Discharge Diagnosis: Bipolar disorder Dementia Referrals: Adina Whelan NP [Other] - 02/24/23 2:00 pm (Your first in office appointment with Adina Whelan NP is scheduled for 02/24/22 at 2pm.) [facility] [Other] - 02/08/23 10:00 am (Referral placed for day program. You are scheduled for a trial day on Wednesday02/08/23 from 11-22 at the program at [address] [place] [address]. You will meet with retirement plan specialist Payal Fernandez and if you need to reschedule please call Payal [email or web address] directly at [phone]. ) Reggie Monk MD [Primary Care Provider] - 02/18/23 1:30 pm (Follow up appointment has been scheduled for 02/18/23 at 1:30pm with Dr. Monk Preferred ) Discharge Medications: New olanzapine 7.5 mg Tablet 7.5 mg PO BEDTIME 30 Days Qty: 30 0RF metoprolol tartrate 25 mg tablet 12.5 mg PO TID Qty: 60 0RF Continued multivitamin Tablet 1 tab PO DAILY Qty: 30 0RF atorvastatin 40 mg Tablet 40 mg PO DAILY 30 Days Qty: 30 0RF acetaminophen 325 mg Tablet 975 mg PO Q6H PRN (Reason: Pain, Mild) Qty: 90 0RF trazodone 50 mg Tablet 50 mg PO BEDTIME PRN (Reason: Insomnia) 30 Days Qty: 30 0RF amlodipine 5 mg Tablet 5 mg PO DAILY 30 Days Qty: 30 0RF Protocol: Hold for SBP< HOLD for SBP < : 90 docusate sodium 100 mg Capsule 100 mg PO BID PRN (Reason: Constipation) Qty: 60 0RF omeprazole 20 mg Capsule,Delayed Release(Dr/Ec) 20 mg PO DAILY 30 Days Qty: 30 0RF aspirin 81 mg Tablet,Chewable 81 mg PO DAILY Qty: 30 0RF cholecalciferol (vitamin D3) 250 mcg (10,000 unit) Capsule 250 mcg PO DAILY Qty: 30 0RF fluticasone furoate 50 mcg/actuation Blister With Device 50 mcg INHALATION BID Qty: 30 0RF Discontinued trazodone 50 mg Tablet 50 mg PO BEDTIME 30 Days Qty: 30 0RF Invega Sustenna 117 mg/0.75 mL syringe 117 mg IM Q30D Qty: 0.75 2RF Rx Instructions: Next dose on Jul 17 2022 Invega Sustenna 117 mg/0.75 mL syringe 117 mg IM Q30D Qty: 0.75 2RF Rx Instructions: Next dose 07/17/2022 Discharge Orders: Discharge Order (Routine); Ordered 02/05/23 Ordered By: Davis Jiang Diet: Advance to usual diet Activity on Discharge: As tolerated Stand Alone Forms: Patient Portal Discharge page Care Plan Goals: Care plan goals achieved in this admission Health Concerns: Continue with primary care physician. Referred to outpatient psychiatric services. Plan of Treatment: Continue medication management with new prescriber. Referred today program. Assessment: The patient is an elderly female with a past history of bipolar disorder with prior admissions to the hospital for cony, admitted for exacerbation of cony since he she was unable to tolerate Invega Sustenna that historically helped her. Cross taper to Zyprexa with for improvement. At this moment the patient ready to go back to the community with ancillary services.
[2023-02-05 07:45] VITALS: BP 131/62; PULSE 87; RESP 18; TEMP 36.8; O2SAT 96
[2023-02-05] MEDS: Atorvastatin Calcium 40 MG TABLET PO (08:32)
[2023-02-05] MEDS: amLODIPine Besylate 5 MG TABLET PO (08:32)
[2023-02-05] MEDS: Metoprolol Tartrate 12.5 MG HALFTAB PO (08:32)
== END 2023-02-05 11:13 | disposition home or self-care (01) | DRG 885 ==
LOC: HO.ED 09:16 → HO.PADLT16 16:50 → HO.PGERI 01-15 12:28
PROVIDERS: Psychiatry & Neurology Psychiatry; Admitting Provider Psychiatry & Neurology Psychiatry; Emergency Provider Emergency Medicine; PCP Pediatrics; Visit Provider Psychiatry & Neurology Psychiatry
DX: F31.2 Bipolar disorder, current episode manic severe with psychotic features (principal); F03.90 Unspecified dementia, unspecified severity, without behavioral disturbance, psychotic disturbance, mood disturbance, and anxiety; Z20.822 Contact with and (suspected) exposure to COVID-19; Z91.148 Patient's other noncompliance with medication regimen for other reason; Z79.51 Long term (current) use of inhaled steroids; Z79.82 Long term (current) use of aspirin; Z79.899 Other long term (current) drug therapy
CPT/HCPCS: 36415; 71045; 80048; 80053; 80061; 80076; 80307; 81001; 83036; 83690; 85025; 87086; 87635; 93005; 99285; S9485

== ENCOUNTER → 2023-01-13 16:37 | Outpatient (BNV) | payer MEDICARE, SELFPAY | PROVIDERS: Admitting Provider Psychiatry & Neurology Psychiatry; Emergency Provider Emergency Medicine; PCP Pediatrics; Visit Provider Psychiatry & Neurology Psychiatry | DX: F31.2 Bipolar disorder, current episode manic severe with psychotic features (principal) | CPT/HCPCS: 90792; 99231; 99232; 99238 ==